=== PATIENT | male | born 1935 | race Caucasian/White ===

== ENCOUNTER 2017-08-22 11:55 | Observation (INO) | payer MEDICARE, OTHER ==
[2017-08-22 12:02] VITALS: BMI 34.0
--- NOTE | 2017-08-22 12:20 | PDOC ---
History of Present Illness - General History Source: Patient Exam Limitations: No Limitations - History of Present Illness Initial Comments: 08/22/17 13:23 81-year-old male sent in by Dr. Craig for evaluation of low glucose. Patient states went to Dr. Craig for follow-up and while having EKG and during the exam patient stated he was slightly lightheaded. Patient had EKG done that was negative and states they did then check his glucose which was low. Patient was offered ambulance but refused and stated he will go straight to [facility] ER across the street. Patient states unable to recall the exact number patient states has had some dizziness. After taking his diabetic medication which his primary care doctor is aware of. Patient states did not check sugar this morning and denies any chest pain, shortness breath, visual changes, headache, or nausea. Timing/Duration: unsure <Willow Lujan - Last Filed: 08/22/17 18:48> <Harvey Adame - Last Filed: 08/25/17 02:53> - General Chief Complaint: Revisit, Lab Variance Stated Complaint: LAB VARIANCE (PCP SENT) Time Seen by Provider: 08/22/17 12:15 Past History - Travel Traveled outside of the country in the last 30 days: No - Past Medical History COPD: No Diabetes: Yes HTN: Yes - Surgical History Abdominal Surgery: Yes (HERNIA REPAIR) Cardiac Surgery: Yes (VALVE REPLACED/PACEMAKER) - Suicide/Smoking/Psychosocial Hx Smoking Status: No Smoking History: Never smoked Have you smoked in the past 12 months: No Number of Cigarettes Smoked Daily: 0 Information on smoking cessation initiated: No Hx Alcohol Use: No Drug/Substance Use Hx: No Substance Use Type: None Hx Substance Use Treatment: No Patient Lives Alone: Yes Lives with/in: lives alone <Willow Lujan - Last Filed: 08/22/17 18:48> <Harvey Adame - Last Filed: 08/25/17 02:53> - Past Medical History Allergies/Adverse Reactions: Allergies Allergy/AdvReac Type Severity Reaction Status Date / Time No Known Drug Allergies Allergy Verified 08/22/17 11:59 Home Medications: Ambulatory Orders Tamsulosin HCl 0.4 mg PO 1800 12/06/12 Amlodipine Besylate [Norvasc -] 10 mg PO DAILY 08/22/17 Aspirin 81 mg PO DAILY 08/22/17 Metformin HCl [Metformin HCl ER] 1,000 mg PO BID 08/22/17 Apixaban [Eliquis -] 2.5 mg PO BID #60 tablet 08/23/17 Insulin Glargine,Hum.rec.anlog [Lantus Solostar PEN -] 15 units SQ HS 08/23/17 Lisinopril [Prinivil -] 40 mg PO DAILY 08/23/17 Prednisolone 1% Ophthalmic [Pred Forte 1% -] 1 drop OS BID 08/23/17 Sitagliptin Phosphate [Januvia] 100 mg PO DAILY 08/23/17 Tadalafil [Cialis] 20 mg PO ASDIR 08/23/17 Timolol 0.5% [Timoptic 0.5%] 1 drop OS BID 08/23/17 Review of Systems - Review of Systems Able to Perform ROS?: Yes Constitutional: No: Symptoms Reported HEENTM: No: Symptoms Reported Respiratory: No: Symptoms reported Cardiac (ROS): Yes: Lightheadedness (episodic) ABD/GI: No: Constipated, Diarrhea, Abdominal cramping : No: Symptoms Reported Musculoskeletal: No: Symptoms Reported Integumentary: No: Symptoms Reported Neurological: No: Symptoms reported Endocrine: No: Symptoms Reported Hematologic/Lymphatic: No: Symptoms Reported <Willow Lujan - Last Filed: 08/22/17 18:48> *Physical Exam - Vital Signs Last Vital Signs Temp Pulse Resp BP Pulse Ox 98.0 F 74 18 135/71 100 08/22/17 12:00 08/22/17 12:00 08/22/17 12:00 08/22/17 12:00 08/22/17 12:00 - Physical Exam General Appearance: Yes: Nourished, Appropriately Dressed HEENT: positive: TMs Normal, Pharynx Normal. negative: Pale Conjunctivae Respiratory/Chest: positive: Lungs Clear, Normal Breath Sounds. negative: Respiratory Distress, Accessory Muscle Use Cardiovascular: positive: Regular Rhythm, Regular Rate. negative: Murmur Gastrointestinal/Abdominal: positive: Soft. negative: Tenderness Integumentary: positive: Normal Color, Warm, Moist Neurologic: positive: Normal Mood/Affect, Motor Strength 5/5 (ambulatory with cane) <Willow Lujan - Last Filed: 08/22/17 18:48> - Vital Signs Last Vital Signs Temp Pulse Resp BP Pulse Ox 98.0 F 74 18 135/71 100 08/22/17 12:00 08/22/17 12:00 08/22/17 12:00 08/22/17 12:00 08/22/17 12:00 <Harvey Adame - Last Filed: 08/25/17 02:53> Heart Score/ECG Review - ECG Intrepretation Rhythm: Regular Rhythm (ventricular paced at 76) <Willow Lujan - Last Filed: 08/22/17 18:48> - ECG Impressions Comment:: 08/22/17 13:06 EKG interpreted by myself Ventricular paced rhythm Rate of 85 Appropriate discordance <Harvey Adame - Last Filed: 08/25/17 02:53> ED Treatment Course - LABORATORY CBC & Chemistry Diagram: 08/22/17 12:48 08/22/17 12:48 <Willow Lujan - Last Filed: 08/22/17 18:48> - LABORATORY CBC & Chemistry Diagram: 08/22/17 12:48 08/23/17 05:39 <Harvey Adame - Last Filed: 08/25/17 02:53> Medical Decision Making - Medical Decision Making 08/22/17 13:32 Patient here for evaluation of low glucose as per patient. Patient states was at Dr. Craig for follow-up when he complaints of lightheadedness and was noted to have a low glucose which is unable to recall. Patient arrives here asymptomatic with no complaints including dizziness. Patient had EKG done that shows no acute findings. Patient ordered for labs, urine, cardiac monitoring. 08/22/17 17:44 Laboratory Tests 08/22/17 08/22/17 08/22/17 12:48 12:48 13:06 WBC 4.8 D Hgb 12.4 Hct 38.6 Plt Count 168 Neutrophils % 59.7 PT with INR INR Sodium 138 Potassium 4.7 Chloride 105 Carbon Dioxide 25 Anion Gap 8 BUN 11 D Creatinine 1.0 D Creat Clearance w eGFR > 60 Random Glucose 205 H Total Bilirubin 0.5 AST 37 D ALT 28 D Alkaline Phosphatase 80 Creatine Kinase 146 Troponin I 0.02 D Urine Glucose (UA) 3+ H Urine Ketones Negative Ur Leukocyte Esterase Negative Stool Occult Blood 08/22/17 08/22/17 17:10 17:19 WBC Hgb Hct Plt Count Neutrophils % PT with INR Pending INR Pending Sodium Potassium Chloride Carbon Dioxide Anion Gap BUN Creatinine Creat Clearance w eGFR Random Glucose Total Bilirubin AST ALT Alkaline Phosphatase Creatine Kinase Troponin I Urine Glucose (UA) Urine Ketones Ur Leukocyte Esterase Stool Occult Blood Negative Chest x-ray shows cart or megaly and possible mild congestion. Case discussed with Dr. Craig who states that Dr. Farias wants patient admitted since he is underline A. fib and currently on no anticoagulation therapy. Dr. Farias requesting admission to telemetry along with heparin administration. PT INR pending. Stool for occult blood negative. 08/22/17 17:49 Microblog sent to hospitalist. 08/22/17 18:48 Patient will be admitted to Dr. Monreal to telemetry observation <Willow Lujan - Last Filed: 08/22/17 18:48> - Medical Decision Making The patient was seen and evaluated in conjunction with ALICIA Lujan under my direct supervision, ancillary studies were reviewed. I agree with the plan as outlined by ALICIA Lujan. <Harvey Adame - Last Filed: 08/25/17 02:53> *DC/Admit/Observation/Transfer - Discharge Dispostion Admit: Yes <Willow Lujan - Last Filed: 08/22/17 18:48> <Harvey Adame - Last Filed: 08/25/17 02:53> Diagnosis at time of Disposition: A-fib, Inadequate anticoagulation, Lightheadedness - Discharge Dispostion Disposition: HOME Condition at time of disposition: Stable
[2017-08-22 13:06] LABS: BASO % 0.7 % (0-2.0); EOS % 3.2 % (0-4.5); HEMATOCRIT 38.6 % (35.4-49); HEMOGLOBIN 12.4 GM/dL (11.7-16.9); LYMPH % 26.5 % (8-40); MCH 26.4 pg (25.7-33.7); MCHC 32.2 g/dl (32.0-35.9); MEAN CELL VOLUME 82.1 fl (80-96); MEAN PLT VOLUME 9.6 fl (7.5-11.1); MONO % 9.9 % (3.8-10.2); NEUT % 59.7 % (42.8-82.8); PLATELET COUNT 168 K/MM3 (134-434); RBC 4.71 M/mm3 (4.00-5.60); RDW 15.1 % (11.9-15.9); WHITE BLOOD COUNT 4.8 K/mm3 (4.0-10.0)
[2017-08-22 13:11] LABS: URINE APPEARANCE CLEAR; URINE BILIRUBIN NEGATIVE (NEGATIVE); URINE BLOOD NEGATIVE (NEGATIVE); URINE COLOR STRAW; URINE GLUCOSE (UA) 3+ (NEGATIVE); URINE KETONE NEGATIVE (NEGATIVE); URINE LEUK ESTERASE NEGATIVE (NEGATIVE); URINE NITRITE NEGATIVE (NEGATIVE); URINE PROTEIN NEGATIVE (NEGATIVE); URINE UROBILINOGEN NEGATIVE mg/dL (0.2-1.0)
[2017-08-22 13:26] LABS: ALBUMIN 3.4 g/dl (3.4-5.0); ANION GAP 8 (8-16); BLOOD UREA NITROGEN 11 mg/dL (7-18); CALCIUM 9.3 mg/dL (8.5-10.1); CHLORIDE 105 mmol/L (98-107); CO2 25 mmol/L (21-32); GLUCOSE,RANDOM 205 mg/dL (74-106); SGPT/ALT 28 U/L (12-78); SODIUM 138 mmol/L (136-145)
[2017-08-22 13:30] LABS: ALK PHOS 80 U/L (45-117); BILIRUBIN,TOTAL 0.5 mg/dL (0.2-1.0); TOT PROT 7.4 g/dl (6.4-8.2)
[2017-08-22 13:33] LABS: POTASSIUM 4.7 mmol/L (3.5-5.1)
[2017-08-22 13:34] LABS: SGOT/AST 37 U/L (15-37)
--- NOTE | 2017-08-22 15:07 | EKG ---
Test Reason : Blood Pressure : / mmHG Vent. Rate : 085 BPM Atrial Rate : 138 BPM P-R Int : 000 ms QRS Dur : 200 ms QT Int : 432 ms P-R-T Axes : 000 -72 107 degrees QTc Int : 514 ms Ventricular-paced rhythm ABNORMAL ECG WHEN COMPARED WITH ECG OF 29-SEP-2015 23:50, VENT. RATE HAS INCREASED BY 9 BPM Confirmed by MD Ambriz Daniel ([id number]) on 08/22/2017 3:06:52 PM Referred By: Confirmed By:Grayson Ambriz MD
[2017-08-22] MEDS ORDERED: HEPARIN NA (PORCINE) 5,000 UNITS/ML 1ML VIAL IVPUSH ONE (17:48)
[2017-08-22] MEDS ORDERED: HEPARIN INFUSION - 25,000 UNITS/500 ML INFUS.BAG IVPB ONE (17:53)
[2017-08-22] MEDS ORDERED: HEPARIN NA (PORCINE) 5,000 UNITS/ML 1ML VIAL ONE (17:53)
[2017-08-22] MEDS ORDERED: HEPARIN SOD,PORK IN 0.45% NACL 25,000 UNITS/500 ML INFUS.BAG IVPB SCH (18:00)
[2017-08-22 18:14] LABS: INR 1.07 (0.82-1.09); PROTHROMBIN TIME (PATIENT) 12.1 SEC (9.98-11.88)
--- NOTE | 2017-08-22 19:07 | PN ---
Teaching Attending Note Name of Resident: Arabella Arguello ATTENDING PHYSICIAN STATEMENT I saw and evaluated the patient. I reviewed the resident's note and discussed the case with the resident. I agree with the resident's findings and plan as documented with exceptions mentioned below. SUBJECTIVE: 81 yom with PMHx of CAD s/p CABG, ?AVR with rupture 2006, s/pPPM, NIDDM, HTN, sent in from Dr. Craig's office for dizziness with suspected hypoglycemia. Patient was noted with BG 200s in the ED. however reported intermittent palpitations, Cardiology Dr. Farias was contacted and patient was suspected to have underlying atrial fibrillation, recommended heparin drip and inpatient monitoring. patient currently denies any palpitations, dizziness, dyspnea, PND, orthopnea, leg swelling or chest pain. 12 point ROS neg except above with no recent URI like illness, fevers, chills or new concerns. OBJECTIVE: Vital Signs Period Temp Pulse Resp BP Sys/Gauthier Pulse Ox Last 24 Hr 98.0 F 61-74 15-18 135-147/71-77 97-100 Intake & Output 08/19/17 08/20/17 08/21/17 08/22/17 23:59 23:59 23:59 23:59 Weight 180 lb GENERAL: Awake, alert, and fully oriented, in no acute distress. HEAD: Normal with no signs of trauma. EYES: Pupils equal, round and reactive to light, extraocular movements intact, sclera anicteric, conjunctiva clear. No lid lag. EARS, NOSE, THROAT: Ears normal, nares patent, oropharynx clear without exudates. Moist mucous membranes. NECK: Normal range of motion, supple without lymphadenopathy, JVD, or masses. limited exam given body habitus LUNGS: Breath sounds equal, clear to auscultation bilaterally. No wheezes, and no crackles. No accessory muscle use. HEART: Regular rate and rhythm, normal S1 and S2 without murmur, rub or gallop. ABDOMEN: Soft, nontender, not distended, normoactive bowel sounds, no guarding, no rebound, no masses. No hepatomegaly or splenomegaly appreciated. MUSCULOSKELETAL: Normal range of motion at all joints. No bony deformities or tenderness. No CVA tenderness. UPPER EXTREMITIES: 2+ pulses, warm, well-perfused. No cyanosis. No clubbing. No peripheral edema. LOWER EXTREMITIES: 2+ pulses, warm, well-perfused. No calf tenderness. No peripheral edema. NEUROLOGICAL: Cranial nerves II-XII intact. Normal speech. PSYCHIATRIC: Cooperative. Good eye contact. Appropriate mood and affect. SKIN: Warm, dry, normal turgor, no rashes or lesions noted, normal capillary refill. Home Medication List Medication Instructions Recorded Confirmed Type Glyburide/Metformin HCl 2 each PO BID 12/06/12 10/14/15 History [Glucovance 5-500 mg Tablet] Losartan/Hydrochlorothiazide 1 each PO DAILY 12/06/12 10/14/15 History [Losartan-Hctz 100-25 mg Tab] Silodosin [Rapaflo] 8 mg PO DAILY 12/06/12 10/14/15 History Tamsulosin HCl 0.4 mg PO DAILY 12/06/12 10/14/15 History Active Medications Generic Name Dose Route Start Last Admin Trade Name Freq PRN Reason Stop Dose Admin HEPARIN SOD,PORK IN 0.45% NACL 25,000 units in 500 mls @ 20 mls/hr 08/22/17 18 :00 Heparin-1/2ns 25,000 Units/500 IVPB TITR HARPER Protocol 1,000 UNITS/HR Insulin Aspart 0 vial 08/22/17 22:00 Novolog Vial Sliding Scale - SQ ACHS HARPER Protocol Laboratory Results - last 24 hr 08/22/17 08/22/17 08/22/17 12:48 12:48 13:06 WBC 4.8 D RBC 4.71 Hgb 12.4 Hct 38.6 MCV 82.1 MCH 26.4 MCHC 32.2 RDW 15.1 Plt Count 168 MPV 9.6 Neutrophils % 59.7 Lymphocytes % 26.5 Monocytes % 9.9 Eosinophils % 3.2 Basophils % 0.7 Sodium 138 Potassium 4.7 Chloride 105 Carbon Dioxide 25 Anion Gap 8 BUN 11 D Creatinine 1.0 D Creat Clearance w eGFR > 60 Random Glucose 205 H Calcium 9.3 Total Bilirubin 0.5 AST 37 D ALT 28 D Alkaline Phosphatase 80 Creatine Kinase 146 Troponin I 0.02 D Total Protein 7.4 Albumin 3.4 D Urine Color Straw Urine Appearance Clear Urine pH 7.0 Ur Specific [place] 1.011 Urine Protein Negative Urine Glucose (UA) 3+ H Urine Ketones Negative Urine Blood Negative Urine Nitrite Negative Urine Bilirubin Negative Urine Urobilinogen Negative Ur Leukocyte Esterase Negative Stool Occult Blood 08/22/17 17:10 WBC RBC Hgb Hct MCV MCH MCHC RDW Plt Count MPV Neutrophils % Lymphocytes % Monocytes % Eosinophils % Basophils % Sodium Potassium Chloride Carbon Dioxide Anion Gap BUN Creatinine Creat Clearance w eGFR Random Glucose Calcium Total Bilirubin AST ALT Alkaline Phosphatase Creatine Kinase Troponin I Total Protein Albumin Urine Color Urine Appearance Urine pH Ur Specific [place] Urine Protein Urine Glucose (UA) Urine Ketones Urine Blood Urine Nitrite Urine Bilirubin Urine Urobilinogen Ur Leukocyte Esterase Stool Occult Blood Negative EKG v-paced ASSESSMENT AND PLAN: 81 yom with CAD s/p CABG/?AVR, s/p PPM, HTN, NIDDM admitted with dizziness/ intermittent palpitation. -Dizziness/Intermittent palpitation, r/o new onset atrial fibrillation -CAD s/p ?CABG/AVR -s/p PPM -HTN -NIDDM Plan: Telemetry, PPM interrogation. heparin drip per Dr. Farias. Check TSH, 2D echo. ISS, diabetic diet. Hold oral hypoglycemics for now. Resume home anti-hypertensives. DVTPPX as above. Plan discussed with patient in detail, all questions answered. Admit to obs, total admit time spent 50 min.
--- NOTE | 2017-08-22 19:12 | HP ---
CHIEF COMPLAINT: Dizziness and Lightheadedness PCP: Dr. Akilah Mays HISTORY OF PRESENT ILLNESS: Patient is an 81 year old male with a PMHx of HTN, NIDDMII, CAD s/p CABG (12 years ago?), s/p PPM, BPH, who was sent over by his maintenance repairman, Dr. Farias, from the office due to complaints of dizziness while getting an EKG done. Patient reports he's been having intermittent dizziness, lightheadedness, and palpitations for years now that initially started 12 years ago when he had an AK. Patient states when he was in the office today, he was laying down getting an EKG done and he started feeling dizzy. Patient was then advised to be sent over to the hospital for evaluation. According to patient, he was told that he had low sugar readings at the office but does not remember the number. Patient reports he took his medications this morning and did have breakfast. Patient otherwise denies fever, chills, nausea, vomiting, abdominal pain, chest pain, shortness of breath, headaches, visual changes, hematuria, melena, hematochezia, hematemesis. ER course was notable for: (1) Chest X-ray showed mild vascular congestion (2) EKG revealing ventricular paced rhythm (3) Heparin drip started, as per cardiology recommendations Recent Travel: Denies PAST MEDICAL HISTORY: HTN, NIDDMII, CAD s/p CABG (12 years ago?), s/p PPM, BPH, PAST SURGICAL HISTORY: abdominal hernia, CABG, PPM Social History: Smoking: Denies Alcohol: Denies Drugs: Denies Family History: Father of AK at age 77 Allergies No Known Drug Allergies Allergy (Verified 08/22/17 11:59) HOME MEDICATIONS: Home Medications Medication Instructions Recorded Glyburide/Metformin HCl 2 each PO BID 12/06/12 [Glucovance 5-500 mg Tablet] Losartan/Hydrochlorothiazide 1 each PO DAILY 12/06/12 [Losartan-Hctz 100-25 mg Tab] Silodosin [Rapaflo] 8 mg PO DAILY 12/06/12 Tamsulosin HCl 0.4 mg PO DAILY 12/06/12 Oxycodone HCl/Acetaminophen 1 tab PO Q6H PRN #60 tablet MDD 4 10/14/15 [Percocet 5-325 mg Tablet] REVIEW OF SYSTEMS CONSTITUTIONAL: Absent: fever, chills, diaphoresis, generalized weakness, malaise, loss of appetite, weight change HEENT: Absent: rhinorrhea, nasal congestion, throat pain, throat swelling, difficulty swallowing, mouth swelling, ear pain, eye pain, visual changes CARDIOVASCULAR: palpitations, lightheadedness Absent: chest pain, syncope, irregular heart rate, peripheral edema RESPIRATORY: Absent: cough, shortness of breath, dyspnea with exertion, orthopnea, wheezing, stridor, hemoptysis GASTROINTESTINAL: Absent: abdominal pain, abdominal distension, nausea, vomiting, diarrhea, constipation, melena, hematochezia GENITOURINARY: Absent: dysuria, frequency, urgency, hesitancy, hematuria, flank pain, genital pain MUSCULOSKELETAL: Absent: myalgia, arthralgia, joint swelling, back pain, neck pain SKIN: Absent: rash, itching, pallor HEMATOLOGIC/IMMUNOLOGIC: Absent: easy bleeding, easy bruising, lymphadenopathy, frequent infections ENDOCRINE: Absent: unexplained weight gain, unexplained weight loss, heat intolerance, cold intolerance NEUROLOGIC: Absent: headache, focal weakness or paresthesias, dizziness, unsteady gait, seizure, mental status changes, bladder or bowel incontinence PSYCHIATRIC: Absent: anxiety, depression, suicidal or homicidal ideation, hallucinations. PHYSICAL EXAMINATION Vital Signs - 24 hr 08/22/17 08/22/17 12:00 13:06 Temperature 98.0 F Pulse Rate 74 Pulse Rate [ 61 Left] Respiratory 18 15 Rate Blood Pressure 135/71 Blood Pressure 147/77 [Right] O2 Sat by Pulse 100 97 Oximetry (%) GENERAL: Awake, alert, and fully oriented, in no acute distress. HEAD: Normal with no signs of trauma. EYES: Pupils equal, round and reactive to light, extraocular movements intact, sclera anicteric, conjunctiva clear. EARS, NOSE, THROAT: Oropharynx clear without exudates. Moist mucous membranes. NECK: Normal range of motion, supple without lymphadenopathy, JVD, or masses. LUNGS: Breath sounds equal, clear to auscultation bilaterally. No wheezes, and no crackles. No accessory muscle use. HEART: Regular rate and rhythm, normal S1 and S2 without murmur, rub or gallop. ABDOMEN: Soft, nontender, not distended, normoactive bowel sounds, no guarding, no rebound, no masses. MUSCULOSKELETAL: Normal range of motion at all joints. No bony deformities or tenderness. No CVA tenderness. UPPER EXTREMITIES: 2+ pulses, warm, well-perfused. No cyanosis. No clubbing. No peripheral edema. LOWER EXTREMITIES: 2+ pulses, warm, well-perfused. No calf tenderness. No peripheral edema. NEUROLOGICAL: Cranial nerves II-XII intact. Normal speech. Sensory intact throughout with 5/5 motor strength bilaterally PSYCHIATRIC: Cooperative. Good eye contact. Appropriate mood and affect. SKIN: Warm, dry, normal turgor, no rashes or lesions noted, normal capillary refill. Laboratory Results - last 24 hr 08/22/17 08/22/17 08/22/17 12:48 12:48 13:06 WBC 4.8 D RBC 4.71 Hgb 12.4 Hct 38.6 MCV 82.1 MCH 26.4 MCHC 32.2 RDW 15.1 Plt Count 168 MPV 9.6 Neutrophils % 59.7 Lymphocytes % 26.5 Monocytes % 9.9 Eosinophils % 3.2 Basophils % 0.7 Sodium 138 Potassium 4.7 Chloride 105 Carbon Dioxide 25 Anion Gap 8 BUN 11 D Creatinine 1.0 D Creat Clearance w eGFR > 60 Random Glucose 205 H Calcium 9.3 Total Bilirubin 0.5 AST 37 D ALT 28 D Alkaline Phosphatase 80 Creatine Kinase 146 Troponin I 0.02 D Total Protein 7.4 Albumin 3.4 D Urine Color Straw Urine Appearance Clear Urine pH 7.0 Ur Specific [place] 1.011 Urine Protein Negative Urine Glucose (UA) 3+ H Urine Ketones Negative Urine Blood Negative Urine Nitrite Negative Urine Bilirubin Negative Urine Urobilinogen Negative Ur Leukocyte Esterase Negative Stool Occult Blood 08/22/17 17:10 WBC RBC Hgb Hct MCV MCH MCHC RDW Plt Count MPV Neutrophils % Lymphocytes % Monocytes % Eosinophils % Basophils % Sodium Potassium Chloride Carbon Dioxide Anion Gap BUN Creatinine Creat Clearance w eGFR Random Glucose Calcium Total Bilirubin AST ALT Alkaline Phosphatase Creatine Kinase Troponin I Total Protein Albumin Urine Color Urine Appearance Urine pH Ur Specific [place] Urine Protein Urine Glucose (UA) Urine Ketones Urine Blood Urine Nitrite Urine Bilirubin Urine Urobilinogen Ur Leukocyte Esterase Stool Occult Blood Negative IMAGES: Chest X-Ray (08/22/17): Cardiomegaly. Mild vascular congestion ASSESSMENT/PLAN: Patient is an 81 year old male who was sent over by his maintenance repairman due to lightheadedness and palpitation with high suspicion of Atrial Fibrillation. Patient admitted for telemetry for further monitoring and management. Lightheadedness and Palpitations -Reefer Engineer has high suspicion for Atrial fibrillation that is not shown on EKG due to ventricular paced rhythms. Patient is noncompliant with medications according to PCP. -Chadsvasc score of 5 with high risk of stroke and possible underlying Paroxysmal Atrial Fibrillation -Patient on no AC and Heparin drip protocol started, as per cardiology. Will bridge and consider NOAC's upon discharge -Monitor PTT -ECHO ordered for the morning -TSH ordered to rule out any endocrinology etiology -Will interrogate pacemaker to rule out any atrial fibrillation rhythms -Continue to monitor on telemetry CAD s/p CABG? -Continue Aspirin 81mg daily -Lipid panel ordered S/P Pacemaker -Patient has [employer] pacemaker. -Creative Developer will come in the morning to interrogate pacemaker HTN -Controlled -Continue home medication Amlodipine 10mg daily -Continue to monitor BP NIDDMII -Hold oral agents -ISS -BGM -A1C ordered BPH -Continue Tamsulosin 0.4mg daily F/E/N -On no IV fluids. Tolerates PO -Electrolytes wnl -Diabetic and sodium controlled diet Prophylaxis -Moderate risk. Heparin drip for DVT -No GI required Disposition -Full code -Will likely remain overnight and will need ECHO done before discharge as well as pacemaker interrogation. -Will need to call pharmacy when re-opens tomorrow to confirm medications. Case discussed with attending, Dr. Monreal. Arabella Arguello [id number] Visit type - Emergency Visit Emergency Visit: Yes Care time: The patient presented to the Emergency Department on the above date and was hospitalized for further evaluation of their emergent condition. - New Patient This patient is new to me today: Yes Date on this admission: 08/22/17 - Critical Care Critical Care patient: No Hospitalist Screening - Colonoscopy Questionnaire Colonoscopy Questionnaire: Colonoscopy Questionnaire - Patient: 50 - 75 years old and never had a screening colonoscopy: Unknown History of colon or rectal polyps, or CA: No History of IBD, Crohn's disease or UC: No History of abdominal radiation therapy as a child: No - Relative: 1 with colon or rectal CA, or polyps at age 60 or younger: Unknown Colon or rectal CA diagnosed at age 45 or younger: Unknown Multiple relatives with colon or rectal CA: Unknown - Outcome: Screening Result: Negative Screen
[2017-08-22] MEDS ORDERED: INSULIN SLIDING SCALE (NOVOLOG) 1 VIAL SQ SCH (22:00)
[2017-08-22] MEDS: INSULIN SLIDING SCALE (NOVOLOG) 1 VIAL SQ SCH (23:30)
[2017-08-23 02:09] LABS: INR 1.14 (0.82-1.09); PROTHROMBIN TIME (PATIENT) 12.9 SEC (9.98-11.88)
[2017-08-23 06:30] LABS: ANION GAP 5 (8-16); BLOOD UREA NITROGEN 14 mg/dL (7-18); CALCIUM 8.9 mg/dL (8.5-10.1); CHLORIDE 107 mmol/L (98-107); CHOLESTEROL 83 mg/dL (50-200); CO2 27 mmol/L (21-32); CREATININE 0.9 mg/dL (0.7-1.3); GLUCOSE,RANDOM 120 mg/dL (74-106); HDL CHOLESTEROL 40 mg/dL (40-60); LDL CHOLESTEROL (ONLY SJRH) 42 mg/dL (5-100); POTASSIUM 3.9 mmol/L (3.5-5.1); SODIUM 139 mmol/L (136-145); TRIGLYCERIDES 38 mg/dL (35-160)
--- NOTE | 2017-08-23 07:22 | PN ---
Physical Exam: SUBJECTIVE: Patient seen and examined OBJECTIVE: Vital Signs Period Temp Pulse Resp BP Sys/Gauthier Pulse Ox Last 24 Hr 97.4 F-98.1 F 60-74 15-18 135-147/71-77 97-100 GENERAL: The patient is awake, alert, and fully oriented, in no acute distress. HEAD: Normal with no signs of trauma. EYES: PERRL, extraocular movements intact, sclera anicteric, conjunctiva clear. No ptosis. ENT: Ears normal, nares patent, oropharynx clear without exudates, moist mucous membranes. NECK: Trachea midline, full range of motion, supple. LUNGS: Breath sounds equal, clear to auscultation bilaterally, no wheezes, no crackles, no accessory muscle use. HEART: Regular rate and rhythm, S1, S2 without murmur, rub or gallop. ABDOMEN: Soft, nontender, nondistended, normoactive bowel sounds, no guarding, no rebound, no hepatosplenomegaly, no masses. EXTREMITIES: 2+ pulses, warm, well-perfused, no edema. NEUROLOGICAL: Cranial nerves II through XII grossly intact. Normal speech, gait not observed. PSYCH: Normal mood, normal affect. SKIN: Warm, dry, normal turgor, no rashes or lesions noted Laboratory Results - last 24 hr 08/22/17 08/22/17 08/22/17 12:48 12:48 13:06 WBC 4.8 D RBC 4.71 Hgb 12.4 Hct 38.6 MCV 82.1 MCH 26.4 MCHC 32.2 RDW 15.1 Plt Count 168 MPV 9.6 Neutrophils % 59.7 Lymphocytes % 26.5 Monocytes % 9.9 Eosinophils % 3.2 Basophils % 0.7 PT with INR INR PTT (Actin FS) Sodium 138 Potassium 4.7 Chloride 105 Carbon Dioxide 25 Anion Gap 8 BUN 11 D Creatinine 1.0 D Creat Clearance w eGFR > 60 POC Glucometer Random Glucose 205 H Calcium 9.3 Total Bilirubin 0.5 AST 37 D ALT 28 D Alkaline Phosphatase 80 Creatine Kinase 146 Troponin I 0.02 D Total Protein 7.4 Albumin 3.4 D Triglycerides Cholesterol Total LDL Cholesterol HDL Cholesterol Urine Color Straw Urine Appearance Clear Urine pH 7.0 Ur Specific [place] 1.011 Urine Protein Negative Urine Glucose (UA) 3+ H Urine Ketones Negative Urine Blood Negative Urine Nitrite Negative Urine Bilirubin Negative Urine Urobilinogen Negative Ur Leukocyte Esterase Negative Stool Occult Blood 08/22/17 08/22/17 08/22/17 17:10 17:19 23:27 WBC RBC Hgb Hct MCV MCH MCHC RDW Plt Count MPV Neutrophils % Lymphocytes % Monocytes % Eosinophils % Basophils % PT with INR 12.10 H INR 1.07 PTT (Actin FS) Sodium Potassium Chloride Carbon Dioxide Anion Gap BUN Creatinine Creat Clearance w eGFR POC Glucometer [phone] Random Glucose Calcium Total Bilirubin AST ALT Alkaline Phosphatase Creatine Kinase Troponin I Total Protein Albumin Triglycerides Cholesterol Total LDL Cholesterol HDL Cholesterol Urine Color Urine Appearance Urine pH Ur Specific [place] Urine Protein Urine Glucose (UA) Urine Ketones Urine Blood Urine Nitrite Urine Bilirubin Urine Urobilinogen Ur Leukocyte Esterase Stool Occult Blood Negative 08/23/17 08/23/17 08/23/17 01:48 01:48 05:39 WBC RBC Hgb Hct MCV MCH MCHC RDW Plt Count MPV Neutrophils % Lymphocytes % Monocytes % Eosinophils % Basophils % PT with INR 12.90 H INR 1.14 PTT (Actin FS) 83.2 H D Sodium 139 Potassium 3.9 Chloride 107 Carbon Dioxide 27 Anion Gap 5 L BUN 14 D Creatinine 0.9 Creat Clearance w eGFR POC Glucometer Random Glucose 120 H D Calcium 8.9 Total Bilirubin AST ALT Alkaline Phosphatase Creatine Kinase Troponin I Total Protein Albumin Triglycerides 38 Cholesterol 83 Total LDL Cholesterol 42 HDL Cholesterol 40 Urine Color Urine Appearance Urine pH Ur Specific [place] Urine Protein Urine Glucose (UA) Urine Ketones Urine Blood Urine Nitrite Urine Bilirubin Urine Urobilinogen Ur Leukocyte Esterase Stool Occult Blood Active Medications Generic Name Dose Route Start Last Admin Trade Name Freq PRN Reason Stop Dose Admin Amlodipine Besylate 10 mg 08/23/17 10:00 Norvasc - PO DAILY [facility] Aspirin 81 mg 08/23/17 10:00 Asa - PO DAILY [facility] HEPARIN SOD,PORK IN 0.45% NACL 25,000 units in 500 mls @ 20 mls/hr 08/22/17 18 :00 08/22/17 19:16 Heparin-1/2ns 25,000 Units/500 IVPB 1,000 units/hr TITR [facility] 20 mls/hr Protocol Administration 1,000 UNITS/HR Insulin Aspart 1 vial 08/22/17 22:00 08/22/17 23:30 Novolog Vial Sliding Scale - SQ 4 units ACHS [facility] Administration Protocol Tamsulosin HCl 0.4 mg 08/23/17 08:30 Flomax - PO 0830 [facility] ASSESSMENT/PLAN: Patient is an 81 year old male who was sent over by his geology faculty member due to lightheadedness and palpitation with high suspicion of Atrial Fibrillation. Patient admitted for telemetry for further monitoring and management.
[2017-08-23] MEDS: INSULIN SLIDING SCALE (NOVOLOG) 1 VIAL SQ SCH ×2 (07:42→11:44)
[2017-08-23] MEDS ORDERED: TAMSULOSIN HCL 0.4 MG CAP.ER.24H (FP) PO SCH (08:30)
[2017-08-23] MEDS ORDERED: ASPIRIN 81 MG CHEWABLE TABLETS ONE (09:35)
[2017-08-23] MEDS ORDERED: TAMSULOSIN HCL 0.4 MG CAP.ER.24H (FP) ONE (09:35)
[2017-08-23] MEDS ORDERED: amLODIPine BESYLATE 10 MG TABLET (FP) PO SCH (10:00)
[2017-08-23] MEDS ORDERED: ASPIRIN 81 MG CHEWABLE TABLETS PO SCH (10:00)
[2017-08-23] MEDS ORDERED: amLODIPine BESYLATE 5 MG TABLET (FP) ONE (10:30)
[2017-08-23 10:39] VITALS: TEMP 98
--- NOTE | 2017-08-23 11:27 | CON.CARD ---
Consult - History of Present Illness History of Present Illness: Patient is an 81 year old male with a PMHx of HTN, NIDDMII, AVR s/p PPM, BPH, who was sent over by his aviation safety equipment technician, Dr. Farias, from the office due to complaints of dizziness while getting an EKG done. Patient reports he's been having intermittent dizziness, lightheadedness, and palpitations for years now that initially started 12 years ago when he had an NM. Patient states when he was in the office today, he was laying down getting an EKG done and he started feeling dizzy. Patient was then advised to be sent over to the hospital for evaluation. According to patient, he was told that he had low sugar readings at the office but does not remember the number. Patient reports he took his medications this morning and did have breakfast. Patient otherwise denies fever , chills, nausea, vomiting, abdominal pain, chest pain, shortness of breath, headaches, visual changes, hematuria, melena, hematochezia, hematemesis. AVR 23mm magna bioprostetic aortic valve Luke Bal [facility] AVR for IE/abscess, complicated by prosthetic AV IE reop done 2 months later Luke Salinas [facility] 2006 Homograft aortic root replacement s/p PPM [employer] DDD AF not complied with AC DM HTN Negative MIBI stress test December 2012 , September 2015 severe mitral regurgitation May 2017 - Alcohol/Substance Use Hx Alcohol Use: No - Smoking History Smoking history: Never smoked Have you smoked in the past 12 months: No Aproximately how many cigarettes per day: 0 Home Medications - Allergies Allergies/Adverse Reactions: Allergies Allergy/AdvReac Type Severity Reaction Status Date / Time No Known Drug Allergies Allergy Verified 08/22/17 11:59 - Home Medications Home Medications: Ambulatory Orders Tamsulosin HCl 0.4 mg PO 1800 12/06/12 Amlodipine Besylate [Norvasc -] 10 mg PO DAILY 08/22/17 Aspirin 81 mg PO DAILY 08/22/17 Metformin HCl [Metformin HCl ER] 1,000 mg PO BID 08/22/17 Insulin Glargine,Hum.rec.anlog [Lantus Solostar PEN (NF)] 15 units SQ HS Lisinopril [Prinivil -] 40 mg PO DAILY 08/23/17 Prednisolone 1% Ophthalmic [Pred Forte 1% -] 1 drop OS BID 08/23/17 Sitagliptin Phosphate [Januvia] 100 mg PO DAILY 08/23/17 Tadalafil [Cialis] 20 mg PO ASDIR 08/23/17 Timolol 0.5% [Timoptic 0.5%] 1 drop OS BID 08/23/17 Review of Systems - Review of Systems Constitutional: reports: No Symptoms Eyes: reports: No Symptoms HENT: reports: No Symptoms Neck: reports: No Symptoms Cardiovascular: reports: No Symptoms Gastrointestinal: reports: No Symptoms Genitourinary: reports: No Symptoms Breasts: reports: No Symptoms Reported Musculoskeletal: reports: No Symptoms Integumentary: reports: No Symptoms Neurological: reports: Dizziness Endocrine: reports: No Symptoms Hematology/Lymphatic: reports: No Symptoms Psychiatric: reports: No Symptoms Vital Signs: Vital Signs Temperature 98.0 F 08/23/17 10:31 Pulse Rate 74 08/23/17 10:31 Respiratory Rate 18 08/23/17 10:31 Blood Pressure 145/85 08/23/17 10:31 O2 Sat by Pulse Oximetry (%) 98 08/23/17 10:31 Constitutional: Yes: Well Nourished, No Distress, Calm Eyes: Yes: WNL, Conjunctiva Clear, EOM Intact HENT: Yes: WNL, Atraumatic, Normocephalic Neck: Yes: WNL, Supple, Trachea Midline Respiratory: Yes: WNL, Regular, CTA Bilaterally Gastrointestinal: Yes: WNL, Normal Bowel Sounds Renal/: Yes: WNL Cardiovascular: Yes: WNL, Regular Rate and Rhythm Musculoskeletal: Yes: WNL Extremities: Yes: WNL Integumentary: Yes: WNL Neurological: Yes: WNL, Alert, Oriented ...Motor Strength: WNL Psychiatric: Yes: WNL, Alert, Oriented - Other Data Labs, Other Data: CBC, BMP 08/22/17 12:48 08/23/17 05:39 INR, PTT INR 1.14 (0.82-1.09) 08/23/17 01:48 Troponin, BNP 08/22/17 12:48 Troponin I 0.02 D Troponin, BNP 08/22/17 12:48 Troponin I 0.02 D Laboratory Tests 08/22/17 08/22/17 08/22/17 12:48 12:48 13:06 WBC 4.8 D RBC 4.71 Hgb 12.4 Hct 38.6 MCV 82.1 MCH 26.4 MCHC 32.2 RDW 15.1 Plt Count 168 MPV 9.6 Neutrophils % 59.7 Lymphocytes % 26.5 Monocytes % 9.9 Eosinophils % 3.2 Basophils % 0.7 PT with INR INR PTT (Actin FS) Sodium 138 Potassium 4.7 Chloride 105 Carbon Dioxide 25 Anion Gap 8 BUN 11 D Creatinine 1.0 D Creat Clearance w eGFR > 60 POC Glucometer Random Glucose 205 H Hemoglobin A1c % Calcium 9.3 Total Bilirubin 0.5 AST 37 D ALT 28 D Alkaline Phosphatase 80 Creatine Kinase 146 Troponin I 0.02 D Total Protein 7.4 Albumin 3.4 D Triglycerides Cholesterol Total LDL Cholesterol HDL Cholesterol TSH Urine Color Straw Urine Appearance Clear Urine pH 7.0 Ur Specific [place] 1.011 Urine Protein Negative Urine Glucose (UA) 3+ H Urine Ketones Negative Urine Blood Negative Urine Nitrite Negative Urine Bilirubin Negative Urine Urobilinogen Negative Ur Leukocyte Esterase Negative Stool Occult Blood 08/22/17 08/22/17 08/22/17 17:10 17:19 23:27 WBC RBC Hgb Hct MCV MCH MCHC RDW Plt Count MPV Neutrophils % Lymphocytes % Monocytes % Eosinophils % Basophils % PT with INR 12.10 H INR 1.07 PTT (Actin FS) Sodium Potassium Chloride Carbon Dioxide Anion Gap BUN Creatinine Creat Clearance w eGFR POC Glucometer [phone] Random Glucose Hemoglobin A1c % Calcium Total Bilirubin AST ALT Alkaline Phosphatase Creatine Kinase Troponin I Total Protein Albumin Triglycerides Cholesterol Total LDL Cholesterol HDL Cholesterol TSH Urine Color Urine Appearance Urine pH Ur Specific [place] Urine Protein Urine Glucose (UA) Urine Ketones Urine Blood Urine Nitrite Urine Bilirubin Urine Urobilinogen Ur Leukocyte Esterase Stool Occult Blood Negative 08/23/17 08/23/17 08/23/17 01:48 01:48 05:39 WBC RBC Hgb Hct MCV MCH MCHC RDW Plt Count MPV Neutrophils % Lymphocytes % Monocytes % Eosinophils % Basophils % PT with INR 12.90 H INR 1.14 PTT (Actin FS) 83.2 H D Sodium 139 Potassium 3.9 Chloride 107 Carbon Dioxide 27 Anion Gap 5 L BUN 14 D Creatinine 0.9 Creat Clearance w eGFR POC Glucometer Random Glucose 120 H D Hemoglobin A1c % Calcium 8.9 Total Bilirubin AST ALT Alkaline Phosphatase Creatine Kinase Troponin I Total Protein Albumin Triglycerides 38 Cholesterol 83 Total LDL Cholesterol 42 HDL Cholesterol 40 TSH Urine Color Urine Appearance Urine pH Ur Specific [place] Urine Protein Urine Glucose (UA) Urine Ketones Urine Blood Urine Nitrite Urine Bilirubin Urine Urobilinogen Ur Leukocyte Esterase Stool Occult Blood 08/23/17 08/23/17 08/23/17 05:39 05:39 07:19 WBC RBC Hgb Hct MCV MCH MCHC RDW Plt Count MPV Neutrophils % Lymphocytes % Monocytes % Eosinophils % Basophils % PT with INR INR PTT (Actin FS) Sodium Potassium Chloride Carbon Dioxide Anion Gap BUN Creatinine Creat Clearance w eGFR POC Glucometer [phone] Random Glucose Hemoglobin A1c % 9.1 H Calcium Total Bilirubin AST ALT Alkaline Phosphatase Creatine Kinase Troponin I Total Protein Albumin Triglycerides Cholesterol Total LDL Cholesterol HDL Cholesterol TSH Cancelled Urine Color Urine Appearance Urine pH Ur Specific [place] Urine Protein Urine Glucose (UA) Urine Ketones Urine Blood Urine Nitrite Urine Bilirubin Urine Urobilinogen Ur Leukocyte Esterase Stool Occult Blood 08/23/17 07:20 WBC RBC Hgb Hct MCV MCH MCHC RDW Plt Count MPV Neutrophils % Lymphocytes % Monocytes % Eosinophils % Basophils % PT with INR INR PTT (Actin FS) 60.9 H Sodium Potassium Chloride Carbon Dioxide Anion Gap BUN Creatinine Creat Clearance w eGFR POC Glucometer Random Glucose Hemoglobin A1c % Calcium Total Bilirubin AST ALT Alkaline Phosphatase Creatine Kinase Troponin I Total Protein Albumin Triglycerides Cholesterol Total LDL Cholesterol HDL Cholesterol TSH Urine Color Urine Appearance Urine pH Ur Specific [place] Urine Protein Urine Glucose (UA) Urine Ketones Urine Blood Urine Nitrite Urine Bilirubin Urine Urobilinogen Ur Leukocyte Esterase Stool Occult Blood Imaging - Results Chest X-ray: Image Reviewed (cm chf) EKG: Image Reviewed (v paced underlying AF/A flutter) Problem List - Problems (1) BPH (benign prostatic hyperplasia) Code(s): N40.0 - BENIGN PROSTATIC HYPERPLASIA WITHOUT LOWER URINRY TRACT SYMP (2) DVT prophylaxis Code(s): VHK1559 - (3) Diabetes Code(s): E11.9 - TYPE 2 DIABETES MELLITUS WITHOUT COMPLICATIONS (4) Fracture of multiple toes Code(s): S92.919A - UNSP FRACTURE OF UNSP TOE(S), INIT FOR CLOS FX (5) Hyperlipidemia Code(s): E78.5 - HYPERLIPIDEMIA, UNSPECIFIED (6) Hypertension Code(s): I10 - ESSENTIAL (PRIMARY) HYPERTENSION Assessment/Plan af /a flutter noncompliance poorly controlled dm chf severe MR s/p AVR/ reop htn hlp s/p PPM (interrogated yesterday) Plan start NOAC d/c heparine adjust dm meds needs f/u with PMD, family input re complience risks of CVA d/w patient
[2017-08-23] MEDS ORDERED: INSULIN (NOVOLOG) ASPART 100 UNITS/ML 10ML VIAL ONE (11:47)
[2017-08-23 13:08] LABS: N-TERMINAL BNP 646.07 pg/ml (5-450)
--- NOTE | 2017-08-23 15:02 | PN ---
Teaching Attending Note Name of Resident: Ivan Arguello ATTENDING PHYSICIAN STATEMENT TIme of evaluation: 9:20 AM I saw and evaluated the patient. I reviewed the resident's note and discussed the case with the resident. I agree with the resident's findings and plan as documented. SUBJECTIVE: Patient seen and examined. no complaints, uneventful overnight. OBJECTIVE: Vital Signs Period Temp Pulse Resp BP Sys/Gauthier Pulse Ox Last 24 Hr 97.4 F-98.1 F 60-76 18-18 136-146/71-89 95-98 Intake & Output 08/20/17 08/21/17 08/22/17 08/23/17 23:59 23:59 23:59 23:59 Weight 180 lb 180 lb General: sitting in bed no acute distress Chest: CTAB, no rales or wheezing Home Medication List Medication Instructions Recorded Confirmed Type Tamsulosin HCl 0.4 mg PO 1800 12/06/12 08/23/17 History Amlodipine Besylate [Norvasc -] 10 mg PO DAILY 08/22/17 08/23/17 History Aspirin 81 mg PO DAILY 08/22/17 08/23/17 History Metformin HCl [Metformin HCl ER] 1,000 mg PO BID 08/22/17 08/23/17 History Insulin Glargine,Hum.rec.anlog 15 units SQ HS 08/23/17 08/23/17 History [Lantus Solostar PEN (NF)] Lisinopril [Prinivil -] 40 mg PO DAILY 08/23/17 08/23/17 History Prednisolone 1% Ophthalmic [Pred 1 drop OS BID 08/23/17 08/23/17 History Forte 1% -] Sitagliptin Phosphate [Januvia] 100 mg PO DAILY 08/23/17 08/23/17 History Tadalafil [Cialis] 20 mg PO ASDIR 08/23/17 08/23/17 History Timolol 0.5% [Timoptic 0.5%] 1 drop OS BID 08/23/17 08/23/17 History Active Medications Generic Name Dose Route Start Last Admin Trade Name Freq PRN Reason Stop Dose Admin Amlodipine Besylate 10 mg 08/23/17 10:00 08/23/17 10:38 Norvasc - PO 10 mg DAILY [facility] Administration Aspirin 81 mg 08/23/17 10:08/23/17 09:36 Asa - PO 81 mg DAILY [facility] Administration HEPARIN SOD,[place] 0.45% NACL 25,000 units in 500 mls @ 20 mls/hr 08/22/17 18 :00 08/22/17 19:16 Heparin-1/2ns 25,000 Units/500 IVPB 1,000 units/hr TITR [facility] 20 mls/hr Protocol Administration 1,000 UNITS/HR Insulin Aspart 1 vial 08/22/17 22:00 08/23/17 11:44 Novolog Vial Sliding Scale - SQ 6 units ACHS [facility] Administration Protocol Tamsulosin HCl 0.4 mg 08/23/17 08:30 08/23/17 09:35 Flomax - PO 0.4 mg 0830 [facility] Administration Laboratory Results - last 24 hr 08/22/17 08/22/17 08/22/17 17:10 17:19 23:27 PT with INR 12.10 H INR 1.07 PTT (Actin FS) Sodium Potassium Chloride Carbon Dioxide Anion Gap BUN Creatinine POC Glucometer [phone] Random Glucose Hemoglobin A1c % Calcium B-Natriuretic Peptide Triglycerides Cholesterol Total LDL Cholesterol HDL Cholesterol TSH Stool Occult Blood Negative 08/23/17 08/23/17 08/23/17 01:48 01:48 05:39 PT with INR 12.90 H INR 1.14 PTT (Actin FS) 83.2 H D Sodium 139 Potassium 3.9 Chloride 107 Carbon Dioxide 27 Anion Gap 5 L BUN 14 D Creatinine 0.9 POC Glucometer Random Glucose 120 H D Hemoglobin A1c % Calcium 8.9 B-Natriuretic Peptide 646.07 H Triglycerides 38 Cholesterol 83 Total LDL Cholesterol 42 HDL Cholesterol 40 TSH 1.37 Stool Occult Blood 08/23/17 08/23/17 08/23/17 05:39 05:39 07:19 PT with INR INR PTT (Actin FS) Sodium Potassium Chloride Carbon Dioxide Anion Gap BUN Creatinine POC Glucometer [phone] Random Glucose Hemoglobin A1c % 9.1 H Calcium B-Natriuretic Peptide Triglycerides Cholesterol Total LDL Cholesterol HDL Cholesterol TSH Cancelled Stool Occult Blood 08/23/17 08/23/17 07:20 11:34 PT with INR INR PTT (Actin FS) 60.9 H Sodium Potassium Chloride Carbon Dioxide Anion Gap BUN Creatinine POC Glucometer [phone] Random Glucose Hemoglobin A1c % Calcium B-Natriuretic Peptide Triglycerides Cholesterol Total LDL Cholesterol HDL Cholesterol TSH Stool Occult Blood ASSESSMENT AND PLAN: 81 yom with CAD s/p CABG/Bioprosthetic AVR, s/p PPM, HTN, NIDDM admitted with dizziness/intermittent palpitation. -Dizziness/Intermittent palpitation, r/o new onset atrial fibrillation -CAD s/p ?CABG/AVR -s/p PPM -HTN -NIDDM Plan: Discussed with Dr. Farias. PPM interrogated by him yesterday, underlying runs of afib. 2D echo reviewed, severe MR/TR/bioprosthetic AVR. Discussed with Dr. Farias, ok to start NOAC. Patient education on risks and benefits and need for close follow up. Also diabetic education and need for close monitoring. TSH noted. d.c home today with outpatient PCP and cardiology follow up.
[2017-08-23 16:07] VITALS: BP 138/78; PULSE 65
--- NOTE | 2017-08-23 18:04 | DS ---
Physical Exam: SUBJECTIVE: Patient seen and examined. Offers no new complaints. Says he feels great. Denies chest pain, dizziness, lightheadedness, nausea vomiting. OBJECTIVE: Vital Signs Period Temp Pulse Resp BP Sys/Gauthier Pulse Ox Last 24 Hr 97.4 F-98.1 F 60-76 18-18 136-146/71-89 95-98 PHYSICAL EXAM GENERAL: The patient is awake, alert, and fully oriented, in no acute distress. HEAD: Normal with no signs of trauma. EYES: PERRL, extraocular movements intact, sclera anicteric, conjunctiva clear. ENT: Ears normal, nares patent, oropharynx clear without exudates, moist mucous membranes. NECK: Trachea midline, full range of motion, supple. LUNGS: Breath sounds equal, clear to auscultation bilaterally, no wheezes, no crackles, no accessory muscle use. HEART: Regular rate and rhythm, S1, S2 without murmur, rub or gallop. ABDOMEN: Soft, nontender, nondistended, normoactive bowel sounds, no guarding, no rebound, no hepatosplenomegaly, no masses. EXTREMITIES: 2+ pulses, warm, well-perfused, no edema. NEUROLOGICAL: Cranial nerves II through XII grossly intact. Normal speech, gait not observed. PSYCH: Normal mood, normal affect. SKIN: Warm, dry, normal turgor, no rashes or lesions noted. LABS Laboratory Results - last 24 hr 08/22/17 08/22/17 08/23/17 17:19 23:27 01:48 PT with INR 12.10 H 12.90 H INR 1.07 1.14 PTT (Actin FS) Sodium Potassium Chloride Carbon Dioxide Anion Gap BUN Creatinine POC Glucometer [phone] Random Glucose Hemoglobin A1c % Calcium B-Natriuretic Peptide Triglycerides Cholesterol Total LDL Cholesterol HDL Cholesterol TSH 08/23/17 08/23/17 08/23/17 01:48 05:39 05:39 PT with INR INR PTT (Actin FS) 83.2 H D Sodium 139 Potassium 3.9 Chloride 107 Carbon Dioxide 27 Anion Gap 5 L BUN 14 D Creatinine 0.9 POC Glucometer Random Glucose 120 H D Hemoglobin A1c % 9.1 H Calcium 8.9 B-Natriuretic Peptide 646.07 H Triglycerides 38 Cholesterol 83 Total LDL Cholesterol 42 HDL Cholesterol 40 TSH 1.37 08/23/17 08/23/17 08/23/17 05:39 07:19 07:20 PT with INR INR PTT (Actin FS) 60.9 H Sodium Potassium Chloride Carbon Dioxide Anion Gap BUN Creatinine POC Glucometer [phone] Random Glucose Hemoglobin A1c % Calcium B-Natriuretic Peptide Triglycerides Cholesterol Total LDL Cholesterol HDL Cholesterol TSH Cancelled 08/23/17 11:34 PT with INR INR PTT (Actin FS) Sodium Potassium Chloride Carbon Dioxide Anion Gap BUN Creatinine POC Glucometer [phone] Random Glucose Hemoglobin A1c % Calcium B-Natriuretic Peptide Triglycerides Cholesterol Total LDL Cholesterol HDL Cholesterol TSH HOSPITAL COURSE: Date of Admission:08/22/17 81 yom with CAD s/p CABG/Bioprosthetic AVR, s/p PPM, HTN, NIDDM admitted with dizziness/intermittent palpitation and was found to have paroxysmal a-fib. Patient was started on Heparin drip. Cardiology consulted. Pacemaker interrogated with no defects. Echo was done which revealed severe MR/TR/ bioprosthetic AVR. Discussed case with Dr. Farias and agreed to start the patient on Eliquis. Patient education on risks and benefits and need for close follow up. Also educated patient on diabetes and the important and to to monitoring. Patient was started on eliquis 2.5mg BID and will follow up with PCP and interior design principal outpatient in 1 week. Date of Discharge: 08/23/17 Minutes to complete discharge: 45 Discharge Summary Reason For Visit: INADEQUATE ANTICOAGULATION Condition: Stable - Instructions Diet, Activity, Other Instructions: You have been diagnosed with abnormal rhythm of your heart called 'atrial fibrillation' which can increase risk of strokes You were seen by your cardiology and recommended we start you on blood thinner as your risk of stroke at this stage is high. You are started on new blood thinner eliquis. Please note that it increases risk of bleeding and you will need close monitoring for any bleeding or new concerns. Also abruptly stopping this medication can hugely increase your risk of clotting that can result in strokes, and event . You cannot get any spinal tap (also called lumbar puncture) or spinal procedure while on this medication. You need to notify all your doctors about this medication and closely follow their instructions on this medication before any procedure or intervention. Continue the medication exactly as directed by your doctor and follow up closely for the same. Also your diabetes is poorly controlled and you are confirmed to be on insulin and metformin currently. Please continue and follow up with your doctor in 1 week to discuss further treatment. Take all your other medications as before. Avoid taking any Ibuprofen, motrin or OTC medications except for tylenol without discussing with your doctor Referrals: Akilah Mays [Primary Care Provider] - 1 Week Disposition: HOME - Home Medications Comprehensive Discharge Medication List: Ambulatory Orders Tamsulosin HCl 0.4 mg PO 1800 12/06/12 Amlodipine Besylate [Norvasc -] 10 mg PO DAILY 08/22/17 Aspirin 81 mg PO DAILY 08/22/17 Metformin HCl [Metformin HCl ER] 1,000 mg PO BID 08/22/17 Apixaban [Eliquis -] 2.5 mg PO BID #60 tablet 08/23/17 Insulin Glargine,Hum.rec.anlog [Lantus Solostar PEN -] 15 units SQ HS 08/23/17 Lisinopril [Prinivil -] 40 mg PO DAILY 08/23/17 Prednisolone 1% Ophthalmic [Pred Forte 1% -] 1 drop OS BID 08/23/17 Sitagliptin Phosphate [Januvia] 100 mg PO DAILY 08/23/17 Tadalafil [Cialis] 20 mg PO ASDIR 08/23/17 Timolol 0.5% [Timoptic 0.5%] 1 drop OS BID 08/23/17 This patient is new to me today: Yes Date on this admission: 08/23/17 Emergency Visit: Yes ED Registration Date: 08/22/17 Care time: The patient presented to the Emergency Department on the above date and was hospitalized for further evaluation of their emergent condition. Critical Care patient: No - Discharge Referral Referred to [facility] Med P.C.: No
== END 2017-08-23 16:20 | disposition home or self-care (01) ==
LOC: JER 11:55 → JERBED 18:50
PROVIDERS: ADMIT Hospitalist; ATTEND Hospitalist
PROC: 3E033GC Introduction of Other Therapeutic Substance into Peripheral Vein, Percutaneous Approach (ICD-10-PCS; principal; 2017-08-22)
PROC: 3E013VG Introduction of Insulin into Subcutaneous Tissue, Percutaneous Approach (ICD-10-PCS; 2017-08-22)
DX: I48.91 Unspecified atrial fibrillation (principal); R79.1 Abnormal coagulation profile; R42 Dizziness and giddiness; R00.2 Palpitations; I10 Essential (primary) hypertension; I25.10 Atherosclerotic heart disease of native coronary artery without angina pectoris; E11.9 Type 2 diabetes mellitus without complications; N40.0 Benign prostatic hyperplasia without lower urinary tract symptoms; Z95.5 Presence of coronary angioplasty implant and graft; Z95.0 Presence of cardiac pacemaker; Z95.1 Presence of aortocoronary bypass graft; Z79.82 Long term (current) use of aspirin; E78.5 Hyperlipidemia, unspecified
CPT/HCPCS: 36415; 71045-TC-FY; 80048; 80053; 80061; 81003; 82272; 82550; 82962; 83036; 83721; 83880; 84443; 84484; 85025; 85610; 85730; 87086; 93005; 93010; 93306-TC; 96372; 96374; 99285-25; G0378; J1644

== ENCOUNTER 2018-05-18 17:54 | Inpatient (IN) | payer MEDICARE, OTHER ==
--- NOTE | 2018-05-18 18:37 | PDOC ---
Rapid Medical Evaluation Medical Evaluation: Allergies Allergy/AdvReac Type Severity Reaction Status Date / Time No Known Drug Allergies Allergy Verified 03/01/18 16:15 I have performed a brief in-person evaluation of this patient. The patient presents with a chief complaint of: Generalized weakness x 2 weeks Denies fever, sob, cp, abd pain, n/v/d Went to see junior account manager last week and was told everything was fine with heart Hx of CHF, HTN, DM, CAD (s/p CABG x3), BPH Patient appears a bit pale-yellowish in appearance; otherwise in NAD Plan: CBC, CMP, trop, UA, VBG, lactic acid, EKG, CXR The patient will proceed to the ED for further evaluation. 05/18/18 18:32
[2018-05-18 19:52] LABS: VENOUS PC02 44.7 mmHg (38-52); VENOUS PH 7.35 (7.32-7.42); VENOUS PO2 29.7 mmHg (28-48)
[2018-05-18 20:08] LABS: BASO % 1.4 % (0-2.0); EOS % 3.2 % (0-4.5); LYMPH % 22.2 % (8-40); MCHC 28.6 g/dl (32.0-35.9); MEAN CELL VOLUME 58.6 fl (80-96); MEAN PLT VOLUME 10.4 fl (7.5-11.1); MONO % 22.1 % (3.8-10.2); NEUT % 51.1 % (42.8-82.8); PLATELET COUNT 217 K/MM3 (134-434); RBC 2.22 M/mm3 (4.00-5.60); RDW 24.7 % (11.9-15.9); URINE APPEARANCE CLEAR; URINE BILIRUBIN NEGATIVE (<2.0 mg/dL); URINE COLOR YELLOW; URINE GLUCOSE (UA) NEGATIVE (NEGATIVE); URINE KETONE NEGATIVE (NEGATIVE); URINE LEUK ESTERASE TRACE (NEGATIVE); URINE NITRITE NEGATIVE (NEGATIVE); URINE PROTEIN NEGATIVE (NEGATIVE); URINE UROBILINOGEN NEGATIVE mg/dL (0.2-1.0); WHITE BLOOD COUNT 4.1 K/mm3 (4.0-10.0)
[2018-05-18 20:13] LABS: MCH 16.7 pg (25.7-33.7)
[2018-05-18 20:15] LABS: ALBUMIN 2.8 g/dl (3.4-5.0); ALK PHOS 123 U/L (45-117); ANION GAP 10 MMOL/L (8-16); BILIRUBIN,TOTAL 0.6 mg/dL (0.2-1); BLOOD UREA NITROGEN 38 mg/dL (7-18); CALCIUM 8.2 mg/dL (8.5-10.1); CHLORIDE 107 mmol/L (98-107); CO2 24 mmol/L (21-32); CREATININE 1.9 mg/dL (0.55-1.3); GLUCOSE,RANDOM 249 mg/dL (74-106); MAGNESIUM 2.3 mg/dL (1.8-2.4); N-TERMINAL BNP 1068.2 pg/ml (5-450); POTASSIUM 4.9 mmol/L (3.5-5.1); SGOT/AST 33 U/L (15-37); SGPT/ALT 135 U/L (13-61); SODIUM 141 mmol/L (136-145); TOT PROT 6.5 g/dl (6.4-8.2)
[2018-05-18 20:18] LABS: HEMOGLOBIN 3.7 GM/dL (11.7-16.9)
--- NOTE | 2018-05-18 20:23 | PDOC ---
History of Present Illness - General Chief Complaint: Lethargy Stated Complaint: WEAKNESS Time Seen by Provider: 05/18/18 19:20 History Source: Patient Exam Limitations: No Limitations - History of Present Illness Initial Comments: 05/18/18 20:13 82 yo M with a hx of CHF, CAD s/p CABG x3 in 2005, DM, HTN, and BPH presents to the emergency department with generalized weakness that has been ongoing for 1.5 weeks. States he has no energy and has had shaking throughout. Last cardiac workup was done 1 month ago per the patient by his bad credit collector (Dr. Jenkins in [place]) and stated it was "normal". He has been having poor appetite and denies the following: nausea, vomiting, visual changes, headaches, chest pain, SOB, abdominal pain, hematochezia, hematuria, dysuria, melena, and leg pain/ swelling. His last colonoscopy was "over 10 years ago" and was considered normal. Denies fever and chills. Pmhx: Refer to above Shx: CABG Meds: flomax, eliquis, lisinopril, aspirin 81 mg, amlodipine, furosemide, insulin, januvia. Allergies: NKDA Social: Denies tobacco, alcohol, and substance abuse. 05/18/18 20:51 Past History - Past Medical History Allergies/Adverse Reactions: Allergies Allergy/AdvReac Type Severity Reaction Status Date / Time No Known Drug Allergies Allergy Verified 05/18/18 18:41 Home Medications: Ambulatory Orders Tamsulosin HCl 0.4 mg PO 1800 12/06/12 Amlodipine Besylate [Norvasc -] 10 mg PO DAILY 08/22/17 Aspirin 81 mg PO DAILY 08/22/17 Insulin Glargine,Hum.rec.anlog [Lantus Solostar PEN -] units SQ HS 08/23/17 Lisinopril [Prinivil -] 40 mg PO DAILY 08/23/17 Prednisolone 1% Ophthalmic [Pred Forte 1% -] 1 drop OS BID 08/23/17 Sitagliptin Phosphate [Januvia] 100 mg PO DAILY 08/23/17 Tadalafil [Cialis] 20 mg PO ASDIR 08/23/17 Timolol 0.5% [Timoptic 0.5%] 1 drop OS BID 08/23/17 Apixaban [Eliquis] 5 mg PO BID 03/04/18 Furosemide [Lasix -] 40 mg PO DAILY #30 tablet 03/04/18 Nystatin Cream [Mycostatin Cream -] 1 applic TP BID #14 applic 03/04/18 COPD: No Diabetes: Yes HTN: Yes - Surgical History Abdominal Surgery: Yes (HERNIA REPAIR) Cardiac Surgery: Yes (VALVE REPLACED/PACEMAKER) - Suicide/Smoking/Psychosocial Hx Smoking Status: No Smoking History: Smoker current status UNK Have you smoked in the past 12 months: No Number of Cigarettes Smoked Daily: 0 Hx Alcohol Use: No Drug/Substance Use Hx: No Substance Use Type: None Hx Substance Use Treatment: No Review of Systems - Review of Systems Able to Perform ROS?: Yes Is the patient limited Belarusian proficient: No Constitutional: Yes: Weakness. No: Chills, Diaphoresis, Fever HEENTM: No: Recent change in vision, Nose Pain, Throat Pain, Mouth Pain Respiratory: No: Cough, Shortness of Breath, Hemoptysis Cardiac (ROS): No: Chest Pain, Edema, Irregular Heart Rate, Lightheadedness, Palpitations, Syncope, Chest Tightness ABD/GI: No: Blood Streaked Bowels, Constipated, Diarrhea, Nausea, Rectal Bleeding, Vomiting, Abdominal cramping, Tarry Stools : No: Burning, Dysuria, Flank Pain, Hematuria Musculoskeletal: Yes: Muscle Weakness. No: Back Pain Integumentary: No: Flushing, Lumps, Rash Neurological: No: Headache, Numbness Psychiatric: No: Stressors Endocrine: No: Unexplained Weight Gain Hematologic/Lymphatic: No: Anemia *Physical Exam - Vital Signs Last Vital Signs Temp Pulse Resp BP Pulse Ox 98.2 F 85 20 107/53 L 99 05/18/18 18:42 05/18/18 18:42 05/18/18 18:42 05/18/18 18:42 05/18/18 18:42 - Physical Exam General Appearance: Yes: Nourished, Appropriately Dressed, Other (pale on appearance) HEENT: positive: EOMI, MONCHO, Normal ENT Inspection, Pale Conjunctivae. negative : Scleral Icterus (R), Scleral Icterus (L), Muffled/Hoarse voice Neck: positive: Trachea midline. negative: Lymphadenopathy (R), Lymphadenopathy (L) Respiratory/Chest: positive: Lungs Clear, Normal Breath Sounds. negative: Chest Tender, Respiratory Distress, Accessory Muscle Use Cardiovascular: positive: Regular Rhythm, Regular Rate, S1, S2. negative: Systolic Murmur Gastrointestinal/Abdominal: positive: Normal Bowel Sounds, Flat, Soft. negative : Tender Rectal Exam: positive: heme negative stool, normal rectal tone. negative: NL Prostate (enlarged), hemorrhoids Lymphatic: negative: Adenopathy Musculoskeletal: negative: CVA Tenderness (R), CVA Tenderness (L) Extremity: positive: Normal Range of Motion, Delayed Capillary Refill, Other ( pale). negative: Normal Inspection, Tender Integumentary: positive: Dry, Warm, Pale Neurologic: positive: machine riveter II-XII NML intact, Fully Oriented, Alert, Normal Mood/ Affect, Normal Response, Motor Strength 5/5. negative: Sensory Deficit ED Treatment Course - LABORATORY CBC & Chemistry Diagram: 05/18/18 19:28 05/18/18 19:28 - ADDITIONAL ORDERS Additional order review: Laboratory Results 05/18/18 19:28 VBG pH 7.35 POC VBG pCO2 44.7 POC VBG pO2 29.7 Mixed VBG HCO3 24.2 - RADIOLOGY Radiology Studies Ordered: Category Date Time Status HEAD CT WITHOUT CONTRAST [CT] Stat CT Scan 05/18/18 19:52 Ordered CHEST X-RAY PORTABLE* [RAD] Stat Radiology 05/18/18 19:53 Taken Medical Decision Making - Medical Decision Making 82 yo M with a hx of CHF, CAD s/p CABG x3 in 2005, DM, HTN, and BPH presents to the emergency department with generalized weakness that has been ongoing for 1.5 weeks. Initial vitals: Initial Vital Signs Temp Pulse Resp BP Pulse Ox 98.2 F 85 20 107/53 L 99 05/18/18 18:42 05/18/18 18:42 05/18/18 18:42 05/18/18 18:42 05/18/18 18:42 Work up: Laboratory Tests 05/18/18 05/18/18 05/18/18 19:28 19:28 19:28 WBC 4.1 RBC 2.22 L Hgb 3.7 L* Hct 13.0 L MCV 58.6 L D MCH 16.7 L D MCHC 28.6 L RDW 24.7 H Plt Count 217 D MPV 10.4 Absolute Neuts (auto) 2.1 Total Counted 100 Neutrophils % 51.1 D Neutrophils % (Manual) 54.0 Band Neutrophils % 1.0 Lymphocytes % 22.2 D Lymphocytes % (Manual) 28.0 Monocytes % 22.1 H Monocytes % (Manual) 10 Eosinophils % 3.2 Eosinophils % (Manual) 7.0 H Basophils % 1.4 Nucleated RBC % 0 Hypochromia 3+ Platelet Estimate Adequate Platelet Comment Large platelets Polychromasia 1+ Poikilocytosis 1+ Anisocytosis 2+ Microcytosis 1+ Macrocytosis 3+ Spherocytes 1+ VBG pH 7.35 POC VBG pCO2 44.7 POC VBG pO2 29.7 Mixed VBG HCO3 24.2 Sodium Potassium Chloride Carbon Dioxide Anion Gap BUN Creatinine Creat Clearance w eGFR Random Glucose Lactic Acid Calcium Magnesium Total Bilirubin AST ALT Alkaline Phosphatase Troponin I B-Natriuretic Peptide Total Protein Albumin Urine Color Yellow Urine Appearance Clear Urine pH 5.0 D Ur Specific [place] 1.013 Urine Protein Negative Urine Glucose (UA) Negative Urine Ketones Negative Urine Blood Negative Urine Nitrite Negative Urine Bilirubin Negative Urine Urobilinogen Negative Ur Leukocyte Esterase Trace Urine WBC (Auto) 16 Urine RBC (Auto) <1 Ur Epithelial Cells Rare Hyaline Casts 4 Urine Mucus Rare 05/18/18 05/18/18 19:28 19:28 WBC RBC Hgb Hct MCV MCH MCHC RDW Plt Count MPV Absolute Neuts (auto) Total Counted Neutrophils % Neutrophils % (Manual) Band Neutrophils % Lymphocytes % Lymphocytes % (Manual) Monocytes % Monocytes % (Manual) Eosinophils % Eosinophils % (Manual) Basophils % Nucleated RBC % Hypochromia Platelet Estimate Platelet Comment Polychromasia Poikilocytosis Anisocytosis Microcytosis Macrocytosis Spherocytes VBG pH POC VBG pCO2 POC VBG pO2 Mixed VBG HCO3 Sodium 141 Potassium 4.9 Chloride 107 Carbon Dioxide 24 Anion Gap 10 BUN 38 H Creatinine 1.9 H Creat Clearance w eGFR 34.02 Random Glucose 249 H Lactic Acid 2.2 H* Calcium 8.2 L Magnesium 2.3 Total Bilirubin 0.6 AST 33 ALT 135 H Alkaline Phosphatase 123 H Troponin I 0.02 B-Natriuretic Peptide 1068.2 H Total Protein 6.5 Albumin 2.8 L Urine Color Urine Appearance Urine pH Ur Specific [place] Urine Protein Urine Glucose (UA) Urine Ketones Urine Blood Urine Nitrite Urine Bilirubin Urine Urobilinogen Ur Leukocyte Esterase Urine WBC (Auto) Urine RBC (Auto) Ur Epithelial Cells Hyaline Casts Urine Mucus 05/18/18 21:11 It was relayed to me approximately 30 minutes ago that the patient's hemoglobin was 3.7. A type and screen was ordered as well as a PT/INR and aptt. A stool occult test was performed. On gross examination, no bright red blood per rectum was noted and the stool occult was sent to the lab. I notified the blood bank at approximately 9:09 pm about the need for blood to be processed expeditiously. At the time, the patients is non tachycardia and blood pressure is mildly hypotensive. We will transfuse 2 units at a time and then give 20 mg of lasix and then 2 units of PRBCs. This is because he appears fluid overloaded on cxr. Will be admitted for anemia. Dispo: admit *DC/Admit/Observation/Transfer Diagnosis at time of Disposition: Anemia Qualifiers: Anemia type: unspecified type Qualified Code(s): D64.9 - Anemia, unspecified - Referrals - Patient Instructions - Post Discharge Activity
[2018-05-18 20:56] LABS: EPI CELLS RARE /HPF (FEW); URINE HYALINE CAST 4 /lpf; URINE MUCUS RARE
--- NOTE | 2018-05-18 20:58 | PDOC ---
Attending Attestation - Resident Resident Name: Flakito Trinidad - ED Attending Attestation I have performed the following: I have examined & evaluated the patient, The case was reviewed & discussed with the resident, I agree w/resident's findings & plan, Exceptions are as noted - Medical Decision Making 05/18/18 20:55 I, Dr. Sada Valentino, DO, attest that this document has been prepared under my direction and personally reviewed by me in its entirety. I further attest, that it accurately reflects all work, treatment, procedures and medical decision -making performed by me. 05/18/18 20:55 a/p: 82yo male with weakness x 1.5 weeks -hx of chf and cad -pt denies change in stool color or bleeding -pt is on elaquis -pt with a pacer -pt very pale -denies sob or cp -pt is able to lay flat on the bed -denies f/c -will send labs, ekg, cxr, head ct -will monitor and reassess 05/18/18 20:57 hgb 3 down from 11 in february will need blood transfusion also with CHAIM most likely from hgb loss -will need admission 05/18/18 21:24 case discussed with the IM resident who accepts pt to service under Dr. Henderson <Sada Valentino - Last Filed: 05/18/18 21:24> - HPI HPI: 05/18/18 22:43 The patient is a 82 year old male, with a significant past medical history of HTN, DMII, CAD s/p CABG, PPM, and BPH, who presents to the emergency department with, a week and half of weakness. Patient endorses increasing shortness of breath without chest pain. Allergies: NKDA Social History: Nonsmoker. Denies EtOH use and recreational drug use. Primary Care Physician: Dr. Mays - Physicial Exam PE: 05/18/18 22:43 Constitutional: Awake, alert, oriented. No acute distress. +Head: Pale. Normocephalic. Atraumatic Eyes: PERRL. EOMI. Conjunctivae are not pale. ENT: Mucous membranes are moist and intact. Posterior pharynx without exudates or erythema. Uvula midline. Neck: Supple. Full ROM. No lymphadenopathy. Cardiovascular: Pacer in the left chest. Regular rate. Regular rhythm. S1, S2 regular. Distal pulses are 2+ and symmetric. +Pulmonary/Chest: Diminished at the bases. No wheezing, rales or rhonchi. Abdominal: Soft and non-distended. There is no tenderness. No rebound, guarding or rigidity. No organomegaly. No palpable masses. Good bowel sounds. Back: No CVA tenderness. Musculoskeletal: No edema. No cyanosis. No clubbing. Full range of motion in all extremities. No calf tenderness. Radial/pedal pulses are intact and 2+ bilaterally Skin: Skin is warm and dry. No petechiae. No purpura. Neurological: Alert and oriented to person, place, and time. Cranial nerves II -XII are grossly intact. Normal speech. Strength is grossly symmetric. No sensory deficits. Psychiatric: Good eye contact. Normal interaction, affect and behavior. <Lillian Mills - Last Filed: 05/18/18 22:43> Heart Score/ECG Review - ECG Intrepretation Comment:: 05/18/18 20:57 paced at 77, no acute st/t wave findings <Sada Valentino - Last Filed: 05/18/18 21:24> Attestations - Attestations 05/18/18 22:43 Documentation prepared by Lillian Mills, acting as medical services coordinator for Sada Valentino DO. <Lillian Mills - Last Filed: 05/18/18 22:43>
--- NOTE | 2018-05-18 21:32 | PN ---
Teaching Attending Note Name of Resident: Nydia Sams ATTENDING PHYSICIAN STATEMENT I saw and evaluated the patient. I reviewed the resident's note and discussed the case with the resident. I agree with the resident's findings and plan as documented. SUBJECTIVE: Patient is an 82 year old man with a history of CHF, CAD s/p CABG x3 in 2005, DM , HTN, heart valve replacement, Pacemaker and BPH who presents to the ER with generalized weakness that has been ongoing for 1.5 weeks. States he has no energy and has had shaking throughout. Last cardiac workup was done 1 month ago per the patient by his cake batter mixer (Dr. Jenkins in [place]) and stated it was "normal". He has been having poor appetite and denies the following: nausea, vomiting, visual changes, headaches, chest pain, SOB, abdominal pain, hematochezia, hematuria, dysuria, melena, and leg pain/swelling. His last colonoscopy was "over 10 years ago" and was considered normal. Denies fever and chills. OBJECTIVE: Alert Vital Signs Period Temp Pulse Resp BP Sys/Gauthier Pulse Ox Last 24 Hr 98.2 F 85 20 107/53 99 HEENT: No Jaundice, eye redness or discharge, PERRLA, EOMI. Normocephalic, atraumatic. External ears are normal and hearing is grossly intact. No nasal discharge. Neck: Supple, nontender. No palpable adenopathy or thyromegaly. No JVD Chest: Good effort. Clear to auscultation and percussion. Heart: Regular. No S3, rub or murmur Abdomen: Not distended, soft, nontender and no HSM. No rebound or guarding. Normoactive bowel sounds. Ext: Peripheral pulses intact. No leg edema. Skin: Warm and dry. No petechiae, rash or ecchymosis. Neuro: Alert. Oriented x3. CN 2-12 grossly intact. Sensation grossly intact in all four extremities and DTR are symmetric. Home Medications Medication Instructions Recorded Tamsulosin HCl 0.4 mg PO 1800 12/06/12 Amlodipine Besylate [Norvasc -] 10 mg PO DAILY 08/22/17 Aspirin 81 mg PO DAILY 08/22/17 Insulin Glargine,Hum.rec.anlog units SQ HS 08/23/17 [Lantus Solostar PEN -] Lisinopril [Prinivil -] 40 mg PO DAILY 08/23/17 Prednisolone 1% Ophthalmic [Pred 1 drop OS BID 08/23/17 Forte 1% -] Sitagliptin Phosphate [Januvia] 100 mg PO DAILY 08/23/17 Tadalafil [Cialis] 20 mg PO ASDIR 08/23/17 Timolol 0.5% [Timoptic 0.5%] 1 drop OS BID 08/23/17 Apixaban [Eliquis] 5 mg PO BID 03/04/18 Furosemide [Lasix -] 40 mg PO DAILY #30 tablet 03/04/18 Nystatin Cream [Mycostatin Cream -] 1 applic TP BID #14 applic 03/04/18 Abnormal Lab Results 05/18/18 05/18/18 05/18/18 19:28 19:28 19:28 RBC 2.22 L Hgb 3.7 L* Hct 13.0 L MCV 58.6 L D MCH 16.7 L D MCHC 28.6 L RDW 24.7 H Monocytes % 22.1 H PT with INR INR BUN 38 H Creatinine 1.9 H Random Glucose 249 H Lactic Acid 2.2 H* Calcium 8.2 L ALT 135 H Alkaline Phosphatase 123 H B-Natriuretic Peptide 1068.2 H Albumin 2.8 L Crossmatch 05/18/18 05/18/18 20:53 21:01 RBC Hgb Hct MCV MCH MCHC RDW Monocytes % PT with INR 27.10 H INR 2.28 H BUN Creatinine Random Glucose Lactic Acid Calcium ALT Alkaline Phosphatase B-Natriuretic Peptide Albumin Crossmatch See Detail ASSESSMENT AND PLAN: 1. Symptomatic anemia - Likely due to GI loss - Hb was >11 g/dl just 2 months ago. Do basic anemia work up including serial stool guaiacs, reticulocyte count and iron studies. Head CT scan and CXR do not show any new abnormalities. Getting PRBC transfusion and IV lasix. Will get abd/pelvic CT, hold eliquis and consult cardiology. Will treat UTI with Rocephin pending urine culture, trend LFTs and Lactic acid. Consult GI. 2. Hypoalbuminemia - Possibly due to combined effects of malnutrition and inflammation associated with comorbid chronic conditions. Will ensure adequate dietary protein intake and also consult electronic equipment set up operator. 3. DM - For now, we will hold the home diabetes drugs and implement sliding scale insulin regimen. Provide comprehensive diabetes care with patient teaching and counseling about the importance of euglycemia, eye care and foot care. 4. CHAIM - Will consult nephrology and avoid nephrotoxic agents such as NSAIDS, aminoglycosides, contrast dyes and certain Alternative medicine products. 5. DVT prophylaxis - On Eliquis. SCD, TEDs 6. Advance directives - Full code
[2018-05-18 21:33] LABS: INR 2.28 (0.83-1.09); PROTHROMBIN TIME (PATIENT) 27.1 SEC (9.7-13.0)
[2018-05-18 21:35] LABS: ACTIVATED PTT 27.9 SECONDS (25.2-36.5)
--- NOTE | 2018-05-18 22:50 | HP ---
CHIEF COMPLAINT: weakness PCP: Dr. Mays HISTORY OF PRESENT ILLNESS: Patient is a 82 y/o male with a history of CHF, CAD s/p CABG, DM, HTN, and BPH who presents for weakness. Patient reports over the last week and a half he has been feeling tired and having difficulty getting out of bed. His family thinks he has been weak for a longer amount of time. Patient did have a cough and congestion about two weeks ago. He denies coughing blood. Patient has never been told he has low blood count before. His reports within the last week he had two very dark stools, but he did not feel they were abnormal. He has never had any blood in his stool, constipation, or vomiting of blood. Patient reports he had a colonocsopy years ago and was not told anything was abnormal. Patient does not think he has been taking any different medication. Patient denies any family history of colon disease or colon cancer. Patient denies fever , chills, headache, shortness of breath, or chest pain. Patient is from the [place] and moved 19 years ago. His occupation was farming. ER course was notable for: (1) (2) (3) Recent Travel: denies PAST MEDICAL HISTORY: CHF, CAD, DM, HTN, BPH PAST SURGICAL HISTORY: CABG Social History: Smoking: denies, never smoked Alcohol: denies, never used Drugs: denies Family History: Allergies No Known Drug Allergies Allergy (Verified 05/18/18 18:41) HOME MEDICATIONS: Home Medications Medication Instructions Recorded Tamsulosin HCl 0.4 mg PO 1800 12/06/12 Amlodipine Besylate [Norvasc -] 10 mg PO DAILY 08/22/17 Aspirin 81 mg PO DAILY 08/22/17 Insulin Glargine,Hum.rec.anlog units SQ HS 08/23/17 [Lantus Solostar PEN -] Lisinopril [Prinivil -] 40 mg PO DAILY 08/23/17 Prednisolone 1% Ophthalmic [Pred 1 drop OS BID 08/23/17 Forte 1% -] Sitagliptin Phosphate [Januvia] 100 mg PO DAILY 08/23/17 Tadalafil [Cialis] 20 mg PO ASDIR 08/23/17 Timolol 0.5% [Timoptic 0.5%] 1 drop OS BID 08/23/17 Apixaban [Eliquis] 5 mg PO BID 09/09/18 Furosemide [Lasix -] 40 mg PO DAILY #30 tablet 03/04/18 Nystatin Cream [Mycostatin Cream -] 1 applic TP BID #14 applic 03/04/18 REVIEW OF SYSTEMS CONSTITUTIONAL: generalized weakness Absent: fever, chills, diaphoresis, malaise, loss of appetite, weight change HEENT: Absent: rhinorrhea, nasal congestion, throat pain, throat swelling, difficulty swallowing, mouth swelling, ear pain, eye pain, visual changes CARDIOVASCULAR: Absent: chest pain, syncope, palpitations, irregular heart rate, lightheadedness , peripheral edema RESPIRATORY: Absent: cough, shortness of breath, dyspnea with exertion, orthopnea, wheezing, stridor, hemoptysis GASTROINTESTINAL: Absent: abdominal pain, abdominal distension, nausea, vomiting, diarrhea, constipation, melena, hematochezia GENITOURINARY: Absent: dysuria, frequency, urgency, hesitancy, hematuria, flank pain, genital pain MUSCULOSKELETAL: Absent: myalgia, arthralgia, joint swelling, back pain, neck pain SKIN: Absent: rash, itching, pallor HEMATOLOGIC/IMMUNOLOGIC: Absent: easy bleeding, easy bruising, lymphadenopathy, frequent infections ENDOCRINE: Absent: unexplained weight gain, unexplained weight loss, heat intolerance, cold intolerance NEUROLOGIC: Absent: headache, focal weakness or paresthesias, dizziness, unsteady gait, seizure, mental status changes, bladder or bowel incontinence PSYCHIATRIC: Absent: anxiety, depression, suicidal or homicidal ideation, hallucinations. PHYSICAL EXAMINATION Vital Signs - 24 hr 05/18/18 18:42 Temperature 98.2 F Pulse Rate 85 Respiratory 20 Rate Blood Pressure 107/53 L O2 Sat by Pulse 99 Oximetry (%) GENERAL: Awake, alert, and fully oriented, in no acute distress. Pale HEAD: Normal with no signs of trauma. EYES: Pupils equal, round and reactive to light, extraocular movements intact, sclera anicteric, left eye deviated to the left EARS, NOSE, THROAT: Moist mucous membranes. No evidence of jaundice NECK: Normal range of motion, supple without lymphadenopathy, JVD, or masses. LUNGS: Breath sounds equal, clear to auscultation bilaterally. No wheezes, and no crackles. No accessory muscle use. HEART: Regular rate and rhythm, normal S1 and S2 without murmur, rub or gallop. Pacemaker ABDOMEN: Soft, nontender, not distended, normoactive bowel sounds, no guarding, no rebound, no masses. Tympanic to percussion MUSCULOSKELETAL: Normal range of motion at all joints. No bony deformities or tenderness. LOWER EXTREMITIES: 2+ pulses, warm, well-perfused. No calf tenderness. No peripheral edema. RECTAL: no internal or external hemorrhoids, no stool in the vault, no blood per rectum NEUROLOGICAL: Cranial nerves II-XII intact. Normal speech. Muscle strength 5/5 UE and 5/5 LE PSYCHIATRIC: Cooperative. Good eye contact. Appropriate mood and affect. SKIN: Warm, dry, normal turgor, no rashes or lesions noted, normal capillary refill. CBC, BMP 05/18/18 19:28 05/18/18 19:28 Urine Test Results Urine Color Yellow 05/18/18 19: Urine Appearance Clear 05/18/18 19:28 Urine pH 5.0 (5.0-8.0) D 05/18/18 19:28 Ur Specific [place] 1.013 (1.010-1.035) 05/18/18 19:28 Urine Protein Negative (NEGATIVE) 05/18/18 19:28 Urine Glucose (UA) Negative (NEGATIVE) 05/18/18 19:28 Urine Ketones Negative (NEGATIVE) 05/18/18 19:28 Urine Blood Negative (NEGATIVE) 05/18/18 19:28 Urine Nitrite Negative (NEGATIVE) 05/18/18 19:28 Urine Bilirubin Negative (<2.0 mg/dL) 05/18/18 19:28 Ur Leukocyte Esterase Trace (NEGATIVE) 05/18/18 19:28 Ur Epithelial Cells Rare /HPF (FEW) 05/18/18 19:28 Urine Mucus Rare 05/18/18 19:28 ASSESSMENT/PLAN: Patient is a 82 y/o male with a history of CHF, CAD s/p CABG, DM, HTN, and BPH who presents for weakness. #Weakness 2/2 to anemia likely GI bleed, cannot r/o malignancy vs production - patients hgb : 3.7, 11.2 on 03/04/18 - ED ordered 4 units of blood - instructed nurse to give 20 units of lasix after second unit - f/u CT of abdomen - Consulted Dr. Barker for GI, patient will likely need colonoscopy - FOBT negative - Protonix 40 mg po daily - NPO for potential procedure tomorrow - LA: 2.2, continue to trend ( 2nd one not drawn at appropriate time, f/u with morning labs) - f/u iron studies - elliquis held #UTI - UA: WBC: 16, trace LE - Rocephin 1 gm daily - f/u UCX - monitor clinically #CHAIM likely prerenal - f/ u repeat in morning - monitor for improvement with transfusion #DM - SS prn - f/u A1C - antiglycemic medications held #CHF - Echo 03/13: EF: 50%, LV systolic fxn low, RV systolic fxn normal, LA mildly dilated - medications held - CXR: mild congestive changes, similar to 03/13 XRay - patient to receive 20 lasix after 2 units of blood #HTN - antihypertensives held - resume when hemodynamically stable Dispo: home medications held Visit type - Emergency Visit Emergency Visit: Yes ED Registration Date: 05/18/18 Care time: The patient presented to the Emergency Department on the above date and was hospitalized for further evaluation of their emergent condition. - New Patient This patient is new to me today: Yes Date on this admission: 05/19/18 - Critical Care Critical Care patient: No
[2018-05-18 23:24] LABS: ANISOCYTOSIS 2+; MACROCYTOSIS 3+
[2018-05-18 23:25] LABS: PLATELET ESTIMATE ADEQUATE
[2018-05-19] MEDS: INSULIN SLIDING SCALE (NOVOLOG) 1 VIAL SQ SCH ×4 (06:27→21:21)
[2018-05-19] MEDS ORDERED: FUROSEMIDE 40 MG/4 ML INJECTABLE VIAL IVPUSH ONE (08:32)
[2018-05-19] MEDS: PANTOPRAZOLE SODIUM 40 MG VIAL IVPUSH SCH (09:05)
[2018-05-19] MEDS ORDERED: DEXTROSE 5%-WATER - 50 ML IVPB ONE (09:07)
[2018-05-19] MEDS ORDERED: cefTRIAXone SODIUM 1 GM VIAL ONE (09:07)
[2018-05-19] MEDS: CEFTRIAXONE 1 GM in DEXTROSE 5%-WATER - 50 ML IVPB SCH (09:12)
--- NOTE | 2018-05-19 09:19 | PN ---
Progress Note (short form) - Note Progress Note: Vital Signs Temperature 97.8 F 05/19/18 08:15 Pulse Rate 65 05/19/18 08:15 Respiratory Rate 16 05/19/18 08:15 Blood Pressure 117/57 L 05/19/18 08:15 O2 Sat by Pulse Oximetry (%) 94 L 05/19/18 01:22 GENERAL: Awake, alert, and fully oriented, in no acute distress. Pale HEAD: Normal with no signs of trauma. EYES: Pupils equal, round and reactive to light, extraocular movements intact, sclera anicteric, left eye deviated to the left EARS, NOSE, THROAT: Moist mucous membranes. No evidence of jaundice NECK: Normal range of motion, supple without lymphadenopathy, JVD, or masses. LUNGS: Breath sounds equal, clear to auscultation bilaterally. No wheezes, and no crackles. No accessory muscle use. HEART: Regular rate and rhythm, normal S1 and S2 without murmur, rub or gallop. Pacemaker ABDOMEN: Soft, nontender, not distended, normoactive bowel sounds, no guarding, no rebound, no masses. Tympanic to percussion MUSCULOSKELETAL: Normal range of motion at all joints. No bony deformities or tenderness. EXTREMITIES: 2+ pulses, warm, well-perfused. No calf tenderness. No peripheral edema. RECTAL: no internal or external hemorrhoids, no stool in the vault, no blood per rectum NEUROLOGICAL: Cranial nerves II-XII intact. Normal speech. Muscle strength 5/5 UE and 5/5 LE PSYCHIATRIC: Cooperative. Good eye contact. Appropriate mood and affect. SKIN: Warm, dry, normal turgor, no rashes or lesions noted, normal capillary refill. CBCD WBC 4.1 K/mm3 (4.0-10.0) 05/18/18 19:28 RBC 2.22 M/mm3 (4.00-5.60) L 05/18/18 19:28 Hgb 3.7 GM/dL (11.7-16.9) L* 05/18/18 19:28 Hct 13.0 % (35.4-49) L 05/18/18 19:28 MCV 58.6 fl (80-96) L D 05/18/18 19:28 MCHC 28.6 g/dl (32.0-35.9) L 05/18/18 19:28 RDW 24.7 % (11.9-15.9) H 05/18/18 19:28 Plt Count 217 K/MM3 (134-434) D 05/18/18 19:28 MPV 10.4 fl (7.5-11.1) 05/18/18 19:28 CMP Sodium 141 mmol/L (136-145) 05/18/18 19:28 Potassium 4.9 mmol/L (3.5-5.1) 05/18/18 19:28 Chloride 107 mmol/L (98-107) 05/18/18 19:28 Carbon Dioxide 24 mmol/L (21-32) 05/18/18 19:28 Anion Gap 10 MMOL/L (8-16) 05/18/18 19:28 BUN 38 mg/dL (7-18) H 05/18/18 19:28 Creatinine 1.9 mg/dL (0.55-1.3) H 05/18/18 19:28 Creat Clearance w eGFR 34.02 (>60) 05/18/18 19:28 Random Glucose 249 mg/dL (74-106) H 05/18/18 19:28 Calcium 8.2 mg/dL (8.5-10.1) L 05/18/18 19:28 Total Bilirubin 0.6 mg/dL (0.2-1) 05/18/18 19:28 AST 33 U/L (15-37) 05/18/18 19:28 ALT 135 U/L (13-61) H 05/18/18 19:28 Alkaline Phosphatase 123 U/L (45-117) H 05/18/18 19:28 Total Protein 6.5 g/dl (6.4-8.2) 05/18/18 19:28 Albumin 2.8 g/dl (3.4-5.0) L 05/18/18 19:28 CARDIAC ENZYMES Troponin I 0.02 ng/ml (0.00-0.05) 05/18/18 19:28 Current Medications Generic Name Dose Route Start Last Admin Trade Name Freq PRN Reason Stop Dose Admin Ceftriaxone Sodium 1 gm/ 50 mls @ 100 mls/hr 05/19/18 10:00 05/19/18 09:12 Dextrose IVPB 100 mls/hr DAILY [facility] Administration Insulin Aspart 1 vial 05/19/18 07:00 05/19/18 06:27 Novolog Vial Sliding Scale - SQ Not Given ACHS [facility] Protocol Pantoprazole Sodium 40 mg 05/19/18 10:00 05/19/18 09:05 Protonix Iv IVPUSH 40 mg DAILY [facility] Administration Home Medications Medication Instructions Recorded Tamsulosin HCl 0.4 mg PO 1800 12/06/12 Amlodipine Besylate [Norvasc -] 10 mg PO DAILY 08/22/17 Aspirin 81 mg PO DAILY 08/22/17 Insulin Glargine,Hum.rec.anlog units SQ HS 08/23/17 [Lantus Solostar PEN -] Lisinopril [Prinivil -] 40 mg PO DAILY 08/23/17 Prednisolone 1% Ophthalmic [Pred 1 drop OS BID 08/23/17 Forte 1% -] Sitagliptin Phosphate [Januvia] 100 mg PO DAILY 08/23/17 Tadalafil [Cialis] 20 mg PO ASDIR 08/23/17 Timolol 0.5% [Timoptic 0.5%] 1 drop OS BID 08/23/17 Apixaban [Eliquis] 5 mg PO BID 03/04/18 Furosemide [Lasix -] 40 mg PO DAILY #30 tablet 03/04/18 Nystatin Cream [Mycostatin Cream -] 1 applic TP BID #14 applic 03/04/18 A/P: Patient is a 82 y/o male with a history of CHF, CAD s/p CABG, DM, HTN, and BPH who presents for weakness. # Acute anemia due to having ACute blood loss cannot r/o malignancy , elliquis held, iron panel studies. 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 Dispo: home medications held Visit type - Emergency Visit Emergency Visit: Yes ED Registration Date: 05/18/18 Care time: The patient presented to the Emergency Department on the above date and was hospitalized for further evaluation of their emergent condition. - New Patient This patient is new to me today: Yes Date on this admission: 11/24/18 - Critical Care Critical Care patient: No - Discharge Referral Referred to [facility] Med P.C.: No
--- NOTE | 2018-05-19 11:59 | EKG ---
Test Reason : Blood Pressure : / mmHG Vent. Rate : 077 BPM Atrial Rate : 079 BPM P-R Int : 000 ms QRS Dur : 162 ms QT Int : 452 ms P-R-T Axes : 000 -72 119 degrees QTc Int : 511 ms Ventricular-paced rhythm ABNORMAL ECG WHEN COMPARED WITH ECG OF 01-MAR-2018 17:31, VENT. RATE HAS INCREASED BY 16 BPM Confirmed by CLEVE CARREON MD ([id number]) on 05/19/2018 11:59:10 AM Referred By: Confirmed By:CLEVE CARREON MD
--- NOTE | 2018-05-19 15:37 | CONS ---
DATE OF CONSULTATION: DATE OF DICTATION: 05/19/2018 Mr. Castro is an 82-year-old male with a past medical history of CHF, CAD, bypass surgery, on anticoagulation, diabetes, hypertension, BPH who is admitted to the hospital after having complaints of weakness over the past couple of weeks. He reports his last colonoscopy was a year ago and as per the son-in- law at the bedside there were no acute findings. They did not recall who did the colonoscopy. He has never had an upper endoscopy in the past. The patient denies any abdominal pain, nausea, vomiting, hematemesis, hematochezia. He does admit to a few months ago noticing some intermittent dark-colored stool which has been resolved. He has never had an upper endoscopy. He denies additional NSAID use. REVIEW OF SYSTEMS: Negative for syncope, chest pain, shortness of breath, or palpitations. PAST MEDICAL AND SURGICAL HISTORY: As listed in the HPI. SOCIAL HISTORY: Does not smoke, drink, or use drugs. ALLERGIES: No known drug allergies. HOME MEDICATIONS: Include tamsulosin, amlodipine, aspirin, insulin, lisinopril , eye drops, Januvia, Cialis, Eliquis, Lasix, and nystatin cream. PHYSICAL EXAMINATION: Vital Signs: Temperature 98, pulse 63, blood pressure has been systolically between 103 and 117, respiratory rate 12, oxygen saturation 97% on room air. General: In no acute distress. Pleasant man. HEENT: Anicteric sclerae. Cardiovascular: S1, S2, regular rate and rhythm. Lungs: Bilaterally clear to auscultation. Abdomen: Soft and nontender. Extremities: No edema. LABORATORIES: White blood cell count 4.1, hemoglobin 3.7, hematocrit 13, MCV 58 , platelet count 217, INR 2.2. Sodium 141, potassium 4.9, BUN 38, creatinine 1.9, glucose 249. Lactic acid was 2, currently it is 1.4. Bilirubin 0.6, AST 33, ALT 135, alkaline phosphatase 123. BNP 1000. Noncontrast abdomen and pelvis CT scan was performed in the emergency room and revealed cardiomegaly and bilateral pleural effusions, small gallstones in the gallbladder without evidence of intra-abdominal or retroperitoneal lymphadenopathy or fluid collection. No abscesses. Also some ascites, small amount within the upper abdomen. IMPRESSION: Severe microcytic anemia in the setting of anticoagulation. Differential diagnoses includes peptic ulcer disease, angiectasias. Adenocarcinoma cannot be excluded at this time. He is hemodynamically stable without sign of an overt gastrointestinal bleed. RECOMMENDATION: Transfuse PRBC to a hemoglobin of 10. Start him on a Protonix infusion. Serial CBC q.8 hours. Hold anticoagulation. Will prepare for endoscopic evaluation on Monday. If he were to develop signs of an overt GI bleed, urgent endoscopy can be performed over the weekend. Will follow this patient with you. DO MIKI LOREDO/[id number] MTDD
[2018-05-19 20:16] LABS: BASO % 1.3 % (0-2.0); EOS % 2.8 % (0-4.5); HEMATOCRIT 19.6 % (35.4-49); LYMPH % 4.9 % (8-40); MCH 20.9 pg (25.7-33.7); MCHC 31.8 g/dl (32.0-35.9); MEAN CELL VOLUME 65.8 fl (80-96); MEAN PLT VOLUME 9.4 fl (7.5-11.1); MONO % 11.2 % (3.8-10.2); NEUT % 79.8 % (42.8-82.8); PLATELET COUNT 175 K/MM3 (134-434); RBC 2.97 M/mm3 (4.00-5.60); RDW 33.6 % (11.9-15.9); WHITE BLOOD COUNT 5.4 K/mm3 (4.0-10.0)
[2018-05-19 20:20] LABS: HEMOGLOBIN 6.2 GM/dL (11.7-16.9)
[2018-05-20] MEDS: INSULIN SLIDING SCALE (NOVOLOG) 1 VIAL SQ SCH ×4 (06:14→21:27)
[2018-05-20 06:40] LABS: SERUM IRON SATURATION 3 % (15-55); TOTAL IRON BINDING CAPACITY 338 ug/dL (250-450); UIBC 327 ug/dL (111-343)
[2018-05-20 07:58] LABS: ALBUMIN 2.6 g/dl (3.4-5.0); ALK PHOS 105 U/L (45-117); ANION GAP 6 MMOL/L (8-16); BILIRUBIN,TOTAL 1.2 mg/dL (0.2-1); BLOOD UREA NITROGEN 24 mg/dL (7-18); CALCIUM 8.4 mg/dL (8.5-10.1); CHLORIDE 112 mmol/L (98-107); CO2 26 mmol/L (21-32); CREATININE 1.6 mg/dL (0.55-1.3); GLUCOSE,RANDOM 135 mg/dL (74-106); MAGNESIUM 2.4 mg/dL (1.8-2.4); POTASSIUM 4.2 mmol/L (3.5-5.1); SGOT/AST 17 U/L (15-37); SGPT/ALT 90 U/L (13-61); SODIUM 144 mmol/L (136-145); TOT PROT 6.1 g/dl (6.4-8.2)
[2018-05-20 08:20] LABS: BASO % 1.2 % (0-2.0); EOS % 2.6 % (0-4.5); HEMATOCRIT 20.1 % (35.4-49); LYMPH % 7.4 % (8-40); MCHC 29.8 g/dl (32.0-35.9); MEAN CELL VOLUME 67.2 fl (80-96); MEAN PLT VOLUME 9.9 fl (7.5-11.1); MONO % 14.5 % (3.8-10.2); NEUT % 74.3 % (42.8-82.8); PLATELET COUNT 164 K/MM3 (134-434); RBC 2.99 M/mm3 (4.00-5.60); RDW 33.3 % (11.9-15.9); WHITE BLOOD COUNT 5.2 K/mm3 (4.0-10.0)
[2018-05-20] MEDS: PANTOPRAZOLE SODIUM 40 MG VIAL IVPUSH SCH (11:00)
[2018-05-20] MEDS: CEFTRIAXONE 1 GM in DEXTROSE 5%-WATER - 50 ML IVPB SCH (11:00)
--- NOTE | 2018-05-20 11:32 | PN ---
Progress Note, Physician Chief Complaint: doing ok , family at the bedside denies any melena/ BRBR / hemetemesis - Current Medication List Current Medications: Active Medications Furosemide (Lasix Injection -) 20 mg IVPUSH ONCE ONE Stop: 05/20/18 16:01 Ceftriaxone Sodium 1 gm/ (Dextrose) 50 mls @ 100 mls/hr IVPB DAILY [facility] Last Admin: 05/19/18 09:12 Dose: 100 mls/hr Insulin Aspart (Novolog Vial Sliding Scale -) 1 vial SQ ACHS [facility]; Protocol Last Admin: 05/20/18 06:14 Dose: Not Given Pantoprazole Sodium (Protonix Iv) 40 mg IVPUSH DAILY [facility] Last Admin: 05/19/18 09:05 Dose: 40 mg - Objective Vital Signs: Vital Signs Temperature 97.8 F 05/20/18 08:48 Pulse Rate 88 05/20/18 08:48 Respiratory Rate 18 05/20/18 08:48 Blood Pressure 98/48 L 05/20/18 08:48 O2 Sat by Pulse Oximetry (%) 96 05/19/18 21:00 Constitutional: Yes: No Distress, Calm Eyes: Yes: WNL HENT: Yes: WNL Neck: Yes: WNL Cardiovascular: Yes: WNL, Regular Rate and Rhythm Respiratory: Yes: WNL, Regular, CTA Bilaterally Gastrointestinal: Yes: WNL, Normal Bowel Sounds, Soft Extremities: Yes: WNL Edema: No Labs: CBC, BMP 05/20/18 05:30 05/20/18 05:30 INR, PTT INR 2.28 (0.83-1.09) H 05/18/18 20:53 Problem List - Problems (1) Acute on chronic blood loss anemia Assessment/Plan: - clear liquid diet - hold a/c - stat INR ordered - transfuse to a hemoglobin of 8 or greater - PPI infusion - plan for diagnostic egd Monday - NPO midnight - goal INR for procedure less than or equal to 1.5 / HG 8 or greater . Plan of care & procedure risk and benfit explained in detail including but not limited to perforation bleeding sedation missed lesion & infection. 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
[2018-05-20] MEDS ORDERED: DEXTROSE 5%-WATER - 50 ML IVPB ONE (11:34)
[2018-05-20] MEDS ORDERED: cefTRIAXone SODIUM 1 GM VIAL ONE (11:34)
--- NOTE | 2018-05-20 13:41 | PN ---
Progress Note (short form) - Note Progress Note: Patient is comfortable with no acute distress, feels hungry. Vital Signs Temperature 97.8 F 05/20/18 08:48 Pulse Rate 88 05/20/18 08:48 Respiratory Rate 18 05/20/18 08:48 Blood Pressure 98/48 L repeat 120/64 05/20/18 08:48 O2 Sat by Pulse Oximetry (%) 96 05/19/18 21:00 GENERAL: Awake, alert with no acute distress. Pale HEAD: Normal with no signs of trauma. EYES: Pupils equal, round and reactive to light, EOMI , sclera anicteric. EARS, NOSE, THROAT: Moist mucous membranes. No evidence of jaundice NECK: Normal range of motion, supple without lymphadenopathy, JVD, or masses. LUNGS: decreased Breath sounds at basis. No wheezes, and no crackles. No accessory muscle use. HEART: Regular rate and rhythm, normal S1 and S2 without murmur, rub or gallop. Pacemaker ABDOMEN: Soft, NT, ND, normoactive bowel sounds, no guarding, no rebound, no masses. MUSCULOSKELETAL: Normal range of motion at all joints. No bony deformities or tenderness. EXTREMITIES: 2+ pulses, warm, well-perfused. No calf tenderness. No peripheral edema. NEUROLOGICAL: Cranial nerves II-XII intact. Normal speech. Muscle strength 5/5 UE and 5/5 LE PSYCHIATRIC: Cooperative. Good eye contact. Appropriate mood and affect. SKIN: Warm, dry, normal turgor, no rashes or lesions noted, normal capillary refill. CBCD WBC 5.2 K/mm3 (4.0-10.0) 05/20/18 05:30 RBC 2.99 M/mm3 (4.00-5.60) L 05/20/18 05:30 Hgb 6.0 GM/dL (11.7-16.9) L* 05/20/18 05:30 Hct 20.1 % (35.4-49) L 05/20/18 05:30 MCV 67.2 fl (80-96) L 05/20/18 05:30 MCHC 29.8 g/dl (32.0-35.9) L 05/20/18 05:30 RDW 33.3 % (11.9-15.9) H 05/20/18 05:30 Plt Count 164 K/MM3 (134-434) 05/20/18 05:30 MPV 9.9 fl (7.5-11.1) 05/20/18 05:30 CMP Sodium 144 mmol/L (136-145) 05/20/18 05:30 Potassium 4.2 mmol/L (3.5-5.1) 05/20/18 05:30 Chloride 112 mmol/L (98-107) H 05/20/18 05:30 Carbon Dioxide 26 mmol/L (21-32) 05/20/18 05:30 Anion Gap 6 MMOL/L (8-16) L 05/20/18 05:30 BUN 24 mg/dL (7-18) H 05/20/18 05:30 Creatinine 1.6 mg/dL (0.55-1.3) H 05/20/18 05:30 Creat Clearance w eGFR 41.49 (>60) 05/20/18 05:30 Random Glucose 135 mg/dL (74-106) H 05/20/18 05:30 Calcium 8.4 mg/dL (8.5-10.1) L 05/20/18 05:30 Total Bilirubin 1.2 mg/dL (0.2-1) H 05/20/18 05:30 AST 17 U/L (15-37) 05/20/18 05:30 ALT 90 U/L (13-61) H 05/20/18 05:30 Alkaline Phosphatase 105 U/L (45-117) 05/20/18 05:30 Total Protein 6.1 g/dl (6.4-8.2) L 05/20/18 05:30 Albumin 2.6 g/dl (3.4-5.0) L 05/20/18 05:30 CARDIAC ENZYMES Troponin I 0.02 ng/ml (0.00-0.05) 05/18/18 19:28 Current Medications Generic Name Dose Route Start Last Admin Trade Name Jonnieq PRN Reason Stop Dose Admin Furosemide 20 mg 05/20/18 16:00 Lasix Injection - IVPUSH 05/20/18 16:01 ONCE ONE Ceftriaxone Sodium 1 gm/ 50 mls @ 100 mls/hr 05/19/18 10:00 05/20/18 11:00 Dextrose IVPB 100 mls/hr DAILY [facility] Administration Insulin Aspart 1 vial 05/19/18 07:00 05/20/18 12:00 Novolog Vial Sliding Scale - SQ 2 units ACHS [facility] Administration Protocol Pantoprazole Sodium 40 mg 05/19/18 10:00 05/20/18 11:00 Protonix Iv IVPUSH 40 mg DAILY [facility] Administration Home Medications Medication Instructions Recorded Tamsulosin HCl 0.4 mg PO 1800 12/06/12 Amlodipine Besylate [Norvasc -] 10 mg PO DAILY 08/22/17 Aspirin 81 mg PO DAILY 08/22/17 Insulin Glargine,Hum.rec.anlog units SQ HS 08/23/17 [Lantus Solostar PEN -] Lisinopril [Prinivil -] 40 mg PO DAILY 08/23/17 Prednisolone 1% Ophthalmic [Pred 1 drop OS BID 08/23/17 Forte 1% -] Sitagliptin Phosphate [Januvia] 100 mg PO DAILY 08/23/17 Tadalafil [Cialis] 20 mg PO ASDIR 08/23/17 Timolol 0.5% [Timoptic 0.5%] 1 drop OS BID 08/23/17 Apixaban [Eliquis] 5 mg PO BID 03/04/18 Furosemide [Lasix -] 40 mg PO DAILY #30 tablet 03/04/18 Nystatin Cream [Mycostatin Cream -] 1 applic TP BID #14 applic 03/04/18 Urine Test Results Urine Color Yellow 05/18/18 19: Urine Appearance Clear 05/18/18 19:28 Urine pH 5.0 (5.0-8.0) D 05/18/18 19:28 Ur Specific [place] 1.013 (1.010-1.035) 05/18/18 19:28 Urine Protein Negative (NEGATIVE) 05/18/18 19:28 Urine Glucose (UA) Negative (NEGATIVE) 05/18/18 19:28 Urine Ketones Negative (NEGATIVE) 05/18/18 19:28 Urine Blood Negative (NEGATIVE) 05/18/18 19: Urine Nitrite Negative (NEGATIVE) 05/18/18 19:28 Urine Bilirubin Negative (<2.0 mg/dL) 05/18/18 19:28 Ur Leukocyte Esterase Trace (NEGATIVE) 05/18/18 19:28 Ur Epithelial Cells Rare /HPF (FEW) 05/18/18 19:28 Urine Mucus Rare 05/18/18 19:28 Echo 03/13: EF: 50%, LV systolic fxn low, RV systolic fxn normal, LA mildly dilated, s/p lasix 20mg post transfusion Assessment and plan: Patient is a 82 y/o male with a history of CHF, CAD s/p CABG, DM, HTN, and BPH who presents for weakness. # Acute anemia ( Iron deficiency anemia) due to Acute blood loss cannot r/o malignancy , Eliquis is on hold, iron panel studies. patient received total of 5 units, will get 1 more unit later today, Lasix 20mg IV x 1 dose. 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 - New Patient This patient is new to me today: No - Critical Care Critical Care patient: No - Discharge Referral Referred to [facility] Med P.C.: No
[2018-05-20] MEDS: FUROSEMIDE 40 MG/4 ML INJECTABLE VIAL IVPUSH ONE ×2 (14:26→16:13)
[2018-05-20] MEDS ORDERED: FUROSEMIDE 40 MG/4 ML INJECTABLE VIAL IVPUSH ONE (16:00)
[2018-05-20 20:35] LABS: INR 1.75 (0.83-1.09); PROTHROMBIN TIME (PATIENT) 20.8 SEC (9.7-13.0)
[2018-05-20 21:33] LABS: HEMATOCRIT 26.4 % (35.4-49); HEMOGLOBIN 8.8 GM/dL (11.7-16.9); MCH 23.2 pg (25.7-33.7); MCHC 33.2 g/dl (32.0-35.9); MEAN CELL VOLUME 69.8 fl (80-96); MEAN PLT VOLUME 9.1 fl (7.5-11.1); PLATELET COUNT 167 K/MM3 (134-434); RBC 3.78 M/mm3 (4.00-5.60); RDW 32.1 % (11.9-15.9); WHITE BLOOD COUNT 5.8 K/mm3 (4.0-10.0)
[2018-05-21] MEDS: INSULIN SLIDING SCALE (NOVOLOG) 1 VIAL SQ SCH ×4 (06:29→22:08)
[2018-05-21 07:25] LABS: BASO % 1.3 % (0-2.0); EOS % 3.4 % (0-4.5); HEMATOCRIT 25.9 % (35.4-49); LYMPH % 8.9 % (8-40); MCH 21.7 pg (25.7-33.7); MCHC 30.8 g/dl (32.0-35.9); MEAN CELL VOLUME 70.5 fl (80-96); MEAN PLT VOLUME 9.3 fl (7.5-11.1); MONO % 18.4 % (3.8-10.2); PLATELET COUNT 150 K/MM3 (134-434); RBC 3.67 M/mm3 (4.00-5.60); RDW 32.1 % (11.9-15.9); WHITE BLOOD COUNT 5.7 K/mm3 (4.0-10.0)
[2018-05-21 07:28] LABS: ALBUMIN 2.3 g/dl (3.4-5.0); ALK PHOS 89 U/L (45-117); ANION GAP 8 MMOL/L (8-16); BILIRUBIN,TOTAL 1.1 mg/dL (0.2-1); BLOOD UREA NITROGEN 19 mg/dL (7-18); CALCIUM 8.4 mg/dL (8.5-10.1); CHLORIDE 112 mmol/L (98-107); CO2 25 mmol/L (21-32); CREATININE 1.6 mg/dL (0.55-1.3); GLUCOSE,RANDOM 108 mg/dL (74-106); POTASSIUM 3.8 mmol/L (3.5-5.1); SGOT/AST 19 U/L (15-37); SGPT/ALT 65 U/L (13-61); SODIUM 145 mmol/L (136-145); TOT PROT 5.7 g/dl (6.4-8.2)
[2018-05-21 07:35] LABS: INR 1.79 (0.83-1.09); PROTHROMBIN TIME (PATIENT) 21.2 SEC (9.7-13.0)
--- NOTE | 2018-05-21 09:10 | PN ---
Physical Exam: SUBJECTIVE: Patient is a 82 y/o male with a history of CHF, CAD s/p CABG, DM, HTN, and BPH who is admitted for anemia. Patient reports he is feeling better, but is still a little dizzy. Patient has no other complaints. OBJECTIVE: Vital Signs Temperature 97.8 F 05/21/18 08:29 Pulse Rate 68 05/21/18 08:29 Respiratory Rate 16 05/21/18 08:45 Blood Pressure 113/58 L 05/21/18 08:29 O2 Sat by Pulse Oximetry (%) 93 L 05/21/18 08:45 GENERAL: Awake, alert, and fully oriented, in no acute distress. Pale HEAD: Normal with no signs of trauma. NECK: Normal range of motion, supple without lymphadenopathy, JVD, or masses. LUNGS: Breath sounds equal, clear to auscultation bilaterally. No wheezes, and no crackles. No accessory muscle use. HEART: Regular rate and rhythm, normal S1 and S2 without murmur, rub or gallop. Pacemaker ABDOMEN: Soft, nontender, not distended, normoactive bowel sounds, no guarding, no rebound, no masses. Tympanic to percussion MUSCULOSKELETAL: Normal range of motion at all joints. No bony deformities or tenderness. LOWER EXTREMITIES: 2+ pulses, warm, well-perfused. No calf tenderness. No peripheral edema. RECTAL: no internal or external hemorrhoids, no stool in the vault, no blood per rectum NEUROLOGICAL: Cranial nerves II-XII intact. Normal speech. Muscle strength 5/5 UE and 5/5 LE SKIN: Warm, dry, normal turgor, no rashes or lesions noted, normal capillary refill. CBC, BMP 05/21/18 05:50 05/21/18 05:50 Active Medications Ceftriaxone Sodium 1 gm/ (Dextrose) 50 mls @ 100 mls/hr IVPB DAILY [facility] Last Admin: 05/20/18 11:00 Dose: 100 mls/hr Insulin Aspart (Novolog Vial Sliding Scale -) 1 vial SQ ACHS [facility]; Protocol Last Admin: 05/21/18 06:29 Dose: Not Given Pantoprazole Sodium (Protonix Iv) 40 mg IVPUSH DAILY [facility] Last Admin: 05/20/18 11:00 Dose: 40 mg ASSESSMENT/PLAN: Patient is a 82 y/o male with a history of CHF, CAD s/p CABG, DM, HTN, and BPH who presents for weakness. 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
[2018-05-21] MEDS ORDERED: cefTRIAXone SODIUM 1 GM VIAL ONE (10:00)
[2018-05-21] MEDS ORDERED: DEXTROSE 5%-WATER - 50 ML IVPB ONE (10:01)
[2018-05-21] MEDS ORDERED: PHYTONADIONE 10 MG/1 ML AMP SQ ONE (10:08)
--- NOTE | 2018-05-21 10:15 | CON.CARD ---
Consult Consult Specialty:: Cardiology - History of Present Illness History of Present Illness: 82 yo M with a hx of CHF, CAD s/p CABG x3 in 2005, DM, HTN, and BPH presents to the emergency department with generalized weakness that has been ongoing for 1.5 weeks. States he has no energy and has had shaking throughout. He has been having poor appetite and denies the following: nausea, vomiting, visual changes , headaches, chest pain, SOB, abdominal pain, hematochezia, hematuria, dysuria, melena, and leg pain/swelling. His last colonoscopy was "over 10 years ago" and was considered normal. Denies fever and chills. Pmhx: Refer to above Shx: CABG Meds: flomax, eliquis, lisinopril, aspirin 81 mg, amlodipine, furosemide, insulin, januvia. Allergies: NKDA Social: Denies tobacco, alcohol, and substance abuse. 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 DDD DM HTN Negative MIBI stress test December 2012 , September 2015 severe mitral regurgitation May 2017 CHF Diastolic Noncompliance Atrial Fibrillation - History Source History Provided By: Patient, Medical Record - Past Medical History Cardio/Vascular: Yes: AFIB, CHF, HTN, Other (s/AVR) Endocrine: Yes: Diabetes Mellitus - Alcohol/Substance Use Hx Alcohol Use: No - Smoking History Smoking history: Smoker current status UNK Have you smoked in the past 12 months: No Aproximately how many cigarettes per day: 0 Home Medications - Allergies Allergies/Adverse Reactions: Allergies Allergy/AdvReac Type Severity Reaction Status Date / Time No Known Drug Allergies Allergy Verified 05/18/18 18:41 - Home Medications Home Medications: Ambulatory Orders Tamsulosin HCl 0.4 mg PO 1800 12/06/12 Amlodipine Besylate [Norvasc -] 10 mg PO DAILY 08/22/17 Aspirin 81 mg PO DAILY 08/22/17 Insulin Glargine,Hum.rec.anlog [Lantus Solostar PEN -] units SQ HS 08/23/17 Lisinopril [Prinivil -] 40 mg PO DAILY 08/23/17 Prednisolone 1% Ophthalmic [Pred Forte 1% -] 1 drop OS BID 08/23/17 Sitagliptin Phosphate [Januvia] 100 mg PO DAILY 08/23/17 Tadalafil [Cialis] 20 mg PO ASDIR 08/23/17 Timolol 0.5% [Timoptic 0.5%] 1 drop OS BID 08/23/17 Apixaban [Eliquis] 5 mg PO BID 03/04/18 Furosemide [Lasix -] 40 mg PO DAILY #30 tablet 03/04/18 Nystatin Cream [Mycostatin Cream -] 1 applic TP BID #14 applic 03/04/18 Review of Systems - Review of Systems Constitutional: reports: Weakness Eyes: reports: No Symptoms HENT: reports: No Symptoms Neck: reports: No Symptoms Cardiovascular: reports: No Symptoms Gastrointestinal: reports: No Symptoms Genitourinary: reports: No Symptoms Breasts: reports: No Symptoms Reported Musculoskeletal: reports: No Symptoms Integumentary: reports: No Symptoms Neurological: reports: No Symptoms Endocrine: reports: No Symptoms Hematology/Lymphatic: reports: No Symptoms Psychiatric: reports: No Symptoms Vital Signs: Vital Signs Temperature 97.8 F 05/21/18 08:29 Pulse Rate 68 05/21/18 08:29 Respiratory Rate 16 05/21/18 08:45 Blood Pressure 113/58 L 05/21/18 08:29 O2 Sat by Pulse Oximetry (%) 93 L 05/21/18 08:45 Constitutional: Yes: Well Nourished, No Distress, Calm Eyes: Yes: WNL, Conjunctiva Clear, EOM Intact HENT: Yes: WNL, Atraumatic, Normocephalic Neck: Yes: WNL, Supple, Trachea Midline Respiratory: Yes: WNL, Regular, CTA Bilaterally Gastrointestinal: Yes: WNL, Normal Bowel Sounds Renal/: Yes: WNL Cardiovascular: Yes: Pulse Irregular Heart Sounds: Yes: S1, S2 Musculoskeletal: Yes: WNL Extremities: Yes: WNL Integumentary: Yes: WNL Neurological: Yes: WNL, Alert, Oriented ...Motor Strength: WNL Psychiatric: Yes: WNL, Alert, Oriented - Other Data Labs, Other Data: CBC, BMP 05/21/18 05:50 05/21/18 05:50 INR, PTT INR 1.79 (0.83-1.09) H 05/21/18 06:10 Laboratory Tests 05/18/18 05/18/18 05/18/18 19:28 19:28 19:28 WBC 4.1 RBC 2.22 L Hgb 3.7 L* Hct 13.0 L MCV 58.6 L D MCH 16.7 L D MCHC 28.6 L RDW 24.7 H Plt Count 217 D MPV 10.4 Absolute Neuts (auto) 2.1 Total Counted 100 Neutrophils % 51.1 D Neutrophils % (Manual) 54.0 Band Neutrophils % 1.0 Lymphocytes % 22.2 D Lymphocytes % (Manual) 28.0 Monocytes % 22.1 H Monocytes % (Manual) 10 Eosinophils % 3.2 Eosinophils % (Manual) 7.0 H Basophils % 1.4 Nucleated RBC % 0 Hypochromia 3+ Platelet Estimate Adequate Platelet Comment Large platelets Polychromasia 1+ Poikilocytosis 1+ Anisocytosis 2+ Microcytosis 1+ Macrocytosis 3+ Spherocytes 1+ PT with INR INR PTT (Actin FS) VBG pH 7.35 POC VBG pCO2 44.7 POC VBG pO2 29.7 Mixed VBG HCO3 24.2 Sodium Potassium Chloride Carbon Dioxide Anion Gap BUN Creatinine Creat Clearance w eGFR POC Glucometer Random Glucose Lactic Acid Calcium Phosphorus Magnesium Iron TIBC Iron Saturation Transferrin Ferritin Total Bilirubin AST ALT Alkaline Phosphatase Troponin I B-Natriuretic Peptide Total Protein Albumin Urine Color Yellow Urine Appearance Clear Urine pH 5.0 D Ur Specific [place] 1.013 Urine Protein Negative Urine Glucose (UA) Negative Urine Ketones Negative Urine Blood Negative Urine Nitrite Negative Urine Bilirubin Negative Urine Urobilinogen Negative Ur Leukocyte Esterase Trace Urine WBC (Auto) 16 Urine RBC (Auto) <1 Ur Epithelial Cells Rare Hyaline Casts 4 Urine Mucus Rare Stool Occult Blood Anti-A Titer Blood Type Antibody Screen Crossmatch 05/18/18 05/18/18 05/18/18 19:28 19:28 20:53 WBC RBC Hgb Hct MCV MCH MCHC RDW Plt Count MPV Absolute Neuts (auto) Total Counted Neutrophils % Neutrophils % (Manual) Band Neutrophils % Lymphocytes % Lymphocytes % (Manual) Monocytes % Monocytes % (Manual) Eosinophils % Eosinophils % (Manual) Basophils % Nucleated RBC % Hypochromia Platelet Estimate Platelet Comment Polychromasia Poikilocytosis Anisocytosis Microcytosis Macrocytosis Spherocytes PT with INR INR PTT (Actin FS) VBG pH POC VBG pCO2 POC VBG pO2 Mixed VBG HCO3 Sodium 141 Potassium 4.9 Chloride 107 Carbon Dioxide 24 Anion Gap 10 BUN 38 H Creatinine 1.9 H Creat Clearance w eGFR 34.02 POC Glucometer Random Glucose 249 H Lactic Acid 2.2 H* Calcium 8.2 L Phosphorus Magnesium 2.3 Iron TIBC Iron Saturation Transferrin Ferritin 7.5 L Total Bilirubin 0.6 AST 33 ALT 135 H Alkaline Phosphatase 123 H Troponin I 0.02 B-Natriuretic Peptide 1068.2 H Total Protein 6.5 Albumin 2.8 L Urine Color Urine Appearance Urine pH Ur Specific [place] Urine Protein Urine Glucose (UA) Urine Ketones Urine Blood Urine Nitrite Urine Bilirubin Urine Urobilinogen Ur Leukocyte Esterase Urine WBC (Auto) Urine RBC (Auto) Ur Epithelial Cells Hyaline Casts Urine Mucus Stool Occult Blood Anti-A Titer Blood Type B POSITIVE Antibody Screen Negative Crossmatch 05/18/18 05/18/18 05/18/18 20:53 21:01 21:01 WBC RBC Hgb Hct MCV MCH MCHC RDW Plt Count MPV Absolute Neuts (auto) Total Counted Neutrophils % Neutrophils % (Manual) Band Neutrophils % Lymphocytes % Lymphocytes % (Manual) Monocytes % Monocytes % (Manual) Eosinophils % Eosinophils % (Manual) Basophils % Nucleated RBC % Hypochromia Platelet Estimate Platelet Comment Polychromasia Poikilocytosis Anisocytosis Microcytosis Macrocytosis Spherocytes PT with INR 27.10 H INR 2.28 H PTT (Actin FS) 27.9 VBG pH POC VBG pCO2 POC VBG pO2 Mixed VBG HCO3 Sodium Potassium Chloride Carbon Dioxide Anion Gap BUN Creatinine Creat Clearance w eGFR POC Glucometer Random Glucose Lactic Acid Calcium Phosphorus Magnesium Iron TIBC Iron Saturation Transferrin Ferritin Total Bilirubin AST ALT Alkaline Phosphatase Troponin I B-Natriuretic Peptide Total Protein Albumin Urine Color Urine Appearance Urine pH Ur Specific [place] Urine Protein Urine Glucose (UA) Urine Ketones Urine Blood Urine Nitrite Urine Bilirubin Urine Urobilinogen Ur Leukocyte Esterase Urine WBC (Auto) Urine RBC (Auto) Ur Epithelial Cells Hyaline Casts Urine Mucus Stool Occult Blood Negative Anti-A Titer Cancelled Blood Type Cancelled Antibody Screen Crossmatch See Detail 05/18/18 05/19/18 05/19/18 22:30 06:23 09:30 WBC RBC Hgb Hct MCV MCH MCHC RDW Plt Count MPV Absolute Neuts (auto) Total Counted Neutrophils % Neutrophils % (Manual) Band Neutrophils % Lymphocytes % Lymphocytes % (Manual) Monocytes % Monocytes % (Manual) Eosinophils % Eosinophils % (Manual) Basophils % Nucleated RBC % Hypochromia Platelet Estimate Platelet Comment Polychromasia Poikilocytosis Anisocytosis Microcytosis Macrocytosis Spherocytes PT with INR INR PTT (Actin FS) VBG pH POC VBG pCO2 POC VBG pO2 Mixed VBG HCO3 Sodium Potassium Chloride Carbon Dioxide Anion Gap BUN Creatinine Creat Clearance w eGFR POC Glucometer 254 Random Glucose Lactic Acid 1.4 Calcium Phosphorus Magnesium Iron 11 L TIBC 338 Iron Saturation 3 L Transferrin 275 Ferritin Total Bilirubin AST ALT Alkaline Phosphatase Troponin I B-Natriuretic Peptide Total Protein Albumin Urine Color Urine Appearance Urine pH Ur Specific [place] Urine Protein Urine Glucose (UA) Urine Ketones Urine Blood Urine Nitrite Urine Bilirubin Urine Urobilinogen Ur Leukocyte Esterase Urine WBC (Auto) Urine RBC (Auto) Ur Epithelial Cells Hyaline Casts Urine Mucus Stool Occult Blood Anti-A Titer Blood Type Antibody Screen Crossmatch 05/19/18 05/19/18 05/19/18 11:37 16:55 19:50 WBC 5.4 RBC 2.97 L Hgb 6.2 L* Hct 19.6 L D MCV 65.8 L MCH 20.9 L D MCHC 31.8 L RDW 33.6 H Plt Count 175 MPV 9.4 Absolute Neuts (auto) 4.3 Total Counted Neutrophils % 79.8 D Neutrophils % (Manual) Band Neutrophils % Lymphocytes % 4.9 L D Lymphocytes % (Manual) Monocytes % 11.2 H Monocytes % (Manual) Eosinophils % 2.8 Eosinophils % (Manual) Basophils % 1.3 Nucleated RBC % 1 H Hypochromia Platelet Estimate Platelet Comment Polychromasia Poikilocytosis Anisocytosis Microcytosis Macrocytosis Spherocytes PT with INR INR PTT (Actin FS) VBG pH POC VBG pCO2 POC VBG pO2 Mixed VBG HCO3 Sodium Potassium Chloride Carbon Dioxide Anion Gap BUN Creatinine Creat Clearance w eGFR POC Glucometer 227 179 Random Glucose Lactic Acid Calcium Phosphorus Magnesium Iron TIBC Iron Saturation Transferrin Ferritin Total Bilirubin AST ALT Alkaline Phosphatase Troponin I B-Natriuretic Peptide Total Protein Albumin Urine Color Urine Appearance Urine pH Ur Specific [place] Urine Protein Urine Glucose (UA) Urine Ketones Urine Blood Urine Nitrite Urine Bilirubin Urine Urobilinogen Ur Leukocyte Esterase Urine WBC (Auto) Urine RBC (Auto) Ur Epithelial Cells Hyaline Casts Urine Mucus Stool Occult Blood Anti-A Titer Blood Type Antibody Screen Crossmatch 05/19/18 05/20/18 05/20/18 21:20 05:30 05:30 WBC 5.2 RBC 2.99 L Hgb 6.0 L* Hct 20.1 L MCV 67.2 L MCH 20.0 L MCHC 29.8 L RDW 33.3 H Plt Count 164 MPV 9.9 Absolute Neuts (auto) 3.8 Total Counted Neutrophils % 74.3 Neutrophils % (Manual) Band Neutrophils % Lymphocytes % 7.4 L D Lymphocytes % (Manual) Monocytes % 14.5 H Monocytes % (Manual) Eosinophils % 2.6 Eosinophils % (Manual) Basophils % 1.2 Nucleated RBC % 2 H Hypochromia Platelet Estimate Platelet Comment Polychromasia Poikilocytosis Anisocytosis Microcytosis Macrocytosis Spherocytes PT with INR INR PTT (Actin FS) VBG pH POC VBG pCO2 POC VBG pO2 Mixed VBG HCO3 Sodium 144 Potassium 4.2 Chloride 112 H Carbon Dioxide 26 Anion Gap 6 L BUN 24 H Creatinine 1.6 H Creat Clearance w eGFR 41.49 POC Glucometer 177 Random Glucose 135 H Lactic Acid Calcium 8.4 L Phosphorus 3.0 Magnesium 2.4 Iron TIBC Iron Saturation Transferrin Ferritin Total Bilirubin 1.2 H AST 17 ALT 90 H Alkaline Phosphatase 105 Troponin I B-Natriuretic Peptide Total Protein 6.1 L Albumin 2.6 L Urine Color Urine Appearance Urine pH Ur Specific [place] Urine Protein Urine Glucose (UA) Urine Ketones Urine Blood Urine Nitrite Urine Bilirubin Urine Urobilinogen Ur Leukocyte Esterase Urine WBC (Auto) Urine RBC (Auto) Ur Epithelial Cells Hyaline Casts Urine Mucus Stool Occult Blood Anti-A Titer Blood Type Antibody Screen Crossmatch 05/20/18 05/20/18 05/20/18 05:44 12:56 16:00 WBC RBC Hgb Hct MCV MCH MCHC RDW Plt Count MPV Absolute Neuts (auto) Total Counted Neutrophils % Neutrophils % (Manual) Band Neutrophils % Lymphocytes % Lymphocytes % (Manual) Monocytes % Monocytes % (Manual) Eosinophils % Eosinophils % (Manual) Basophils % Nucleated RBC % Hypochromia Platelet Estimate Platelet Comment Polychromasia Poikilocytosis Anisocytosis Microcytosis Macrocytosis Spherocytes PT with INR INR PTT (Actin FS) VBG pH POC VBG pCO2 POC VBG pO2 Mixed VBG HCO3 Sodium Potassium Chloride Carbon Dioxide Anion Gap BUN Creatinine Creat Clearance w eGFR POC Glucometer 158 151 145 Random Glucose Lactic Acid Calcium Phosphorus Magnesium Iron TIBC Iron Saturation Transferrin Ferritin Total Bilirubin AST ALT Alkaline Phosphatase Troponin I B-Natriuretic Peptide Total Protein Albumin Urine Color Urine Appearance Urine pH Ur Specific [place] Urine Protein Urine Glucose (UA) Urine Ketones Urine Blood Urine Nitrite Urine Bilirubin Urine Urobilinogen Ur Leukocyte Esterase Urine WBC (Auto) Urine RBC (Auto) Ur Epithelial Cells Hyaline Casts Urine Mucus Stool Occult Blood Anti-A Titer Blood Type Antibody Screen Crossmatch 05/20/18 05/20/18 05/20/18 18:50 21:05 21:26 WBC 5.8 RBC 3.78 L Hgb 8.8 L Hct 26.4 L D MCV 69.8 L MCH 23.2 L D MCHC 33.2 RDW 32.1 H Plt Count 167 MPV 9.1 Absolute Neuts (auto) Total Counted Neutrophils % Neutrophils % (Manual) Band Neutrophils % Lymphocytes % Lymphocytes % (Manual) Monocytes % Monocytes % (Manual) Eosinophils % Eosinophils % (Manual) Basophils % Nucleated RBC % Hypochromia Platelet Estimate Platelet Comment Polychromasia Poikilocytosis Anisocytosis Microcytosis Macrocytosis Spherocytes PT with INR 20.80 H INR 1.75 H PTT (Actin FS) VBG pH POC VBG pCO2 POC VBG pO2 Mixed VBG HCO3 Sodium Potassium Chloride Carbon Dioxide Anion Gap BUN Creatinine Creat Clearance w eGFR POC Glucometer 141 Random Glucose Lactic Acid Calcium Phosphorus Magnesium Iron TIBC Iron Saturation Transferrin Ferritin Total Bilirubin AST ALT Alkaline Phosphatase Troponin I B-Natriuretic Peptide Total Protein Albumin Urine Color Urine Appearance Urine pH Ur Specific [place] Urine Protein Urine Glucose (UA) Urine Ketones Urine Blood Urine Nitrite Urine Bilirubin Urine Urobilinogen Ur Leukocyte Esterase Urine WBC (Auto) Urine RBC (Auto) Ur Epithelial Cells Hyaline Casts Urine Mucus Stool Occult Blood Anti-A Titer Blood Type Antibody Screen Crossmatch 05/21/18 05/21/18 05/21/18 05:50 05:50 05:58 WBC 5.7 RBC 3.67 L Hgb 8.0 L Hct 25.9 L MCV 70.5 L MCH 21.7 L MCHC 30.8 L RDW 32.1 H Plt Count 150 MPV 9.3 Absolute Neuts (auto) 3.9 Total Counted Neutrophils % 68.0 Neutrophils % (Manual) Band Neutrophils % Lymphocytes % 8.9 D Lymphocytes % (Manual) Monocytes % 18.4 H Monocytes % (Manual) Eosinophils % 3.4 Eosinophils % (Manual) Basophils % 1.3 Nucleated RBC % 3 H Hypochromia Platelet Estimate Platelet Comment Polychromasia Poikilocytosis Anisocytosis Microcytosis Macrocytosis Spherocytes PT with INR INR PTT (Actin FS) VBG pH POC VBG pCO2 POC VBG pO2 Mixed VBG HCO3 Sodium 145 Potassium 3.8 Chloride 112 H Carbon Dioxide 25 Anion Gap 8 BUN 19 H Creatinine 1.6 H Creat Clearance w eGFR 41.49 POC Glucometer 123 Random Glucose 108 H Lactic Acid Calcium 8.4 L Phosphorus Magnesium Iron TIBC Iron Saturation Transferrin Ferritin Total Bilirubin 1.1 H AST 19 ALT 65 H Alkaline Phosphatase 89 Troponin I B-Natriuretic Peptide Total Protein 5.7 L Albumin 2.3 L Urine Color Urine Appearance Urine pH Ur Specific [place] Urine Protein Urine Glucose (UA) Urine Ketones Urine Blood Urine Nitrite Urine Bilirubin Urine Urobilinogen Ur Leukocyte Esterase Urine WBC (Auto) Urine RBC (Auto) Ur Epithelial Cells Hyaline Casts Urine Mucus Stool Occult Blood Anti-A Titer Blood Type Antibody Screen Crossmatch 05/21/18 06:10 WBC RBC Hgb Hct MCV MCH MCHC RDW Plt Count MPV Absolute Neuts (auto) Total Counted Neutrophils % Neutrophils % (Manual) Band Neutrophils % Lymphocytes % Lymphocytes % (Manual) Monocytes % Monocytes % (Manual) Eosinophils % Eosinophils % (Manual) Basophils % Nucleated RBC % Hypochromia Platelet Estimate Platelet Comment Polychromasia Poikilocytosis Anisocytosis Microcytosis Macrocytosis Spherocytes PT with INR 21.20 H INR 1.79 H PTT (Actin FS) VBG pH POC VBG pCO2 POC VBG pO2 Mixed VBG HCO3 Sodium Potassium Chloride Carbon Dioxide Anion Gap BUN Creatinine Creat Clearance w eGFR POC Glucometer Random Glucose Lactic Acid Calcium Phosphorus Magnesium Iron TIBC Iron Saturation Transferrin Ferritin Total Bilirubin AST ALT Alkaline Phosphatase Troponin I B-Natriuretic Peptide Total Protein Albumin Urine Color Urine Appearance Urine pH Ur Specific [place] Urine Protein Urine Glucose (UA) Urine Ketones Urine Blood Urine Nitrite Urine Bilirubin Urine Urobilinogen Ur Leukocyte Esterase Urine WBC (Auto) Urine RBC (Auto) Ur Epithelial Cells Hyaline Casts Urine Mucus Stool Occult Blood Anti-A Titer Blood Type Antibody Screen Crossmatch Imaging - Results Chest X-ray: Image Reviewed (sp [facility] no i/e) EKG: Image Reviewed (af vpaced) Assessment/Plan severe anemia ? GI bleed? AVR 23mm magna bioprostetic aortic valve dr. 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
--- NOTE | 2018-05-21 10:20 | PN ---
Progress Note (short form) - Note Progress Note: INR cookie to 1.79 today. No active bleedin reported by nursing and vitals have remained stable. Georgina held x 3 days ago. Ordered Vitamin K SC 10mg x 1 and will plan for EGD 05/22. Repeat CBC / coags in AM. NPO after midnight except meds. Clear liquids for now.
[2018-05-21] MEDS: CEFTRIAXONE 1 GM in DEXTROSE 5%-WATER - 50 ML IVPB SCH (10:22)
[2018-05-21] MEDS: PANTOPRAZOLE SODIUM 40 MG VIAL IVPUSH SCH (10:23)
[2018-05-21 14:32] LABS: HEMATOCRIT 26.2 % (35.4-49); MCH 21.6 pg (25.7-33.7); MCHC 30.4 g/dl (32.0-35.9); PLATELET COUNT 150 K/MM3 (134-434); RBC 3.69 M/mm3 (4.00-5.60); RDW 32.3 % (11.9-15.9); WHITE BLOOD COUNT 6.2 K/mm3 (4.0-10.0)
--- NOTE | 2018-05-21 20:22 | PN ---
Teaching Attending Note Name of Resident: Nydia Latrell ATTENDING PHYSICIAN STATEMENT I saw and evaluated the patient. I reviewed the resident's note and discussed the case with the resident. I agree with the resident's findings and plan as documented. SUBJECTIVE: Patient feels better s/p blood transfusions. No nausea or vomiting. OBJECTIVE: Vital Signs Temperature 98.6 F 05/21/18 18:00 Pulse Rate 77 05/21/18 18:00 Respiratory Rate 16 05/21/18 18:00 Blood Pressure 110/50 L 05/21/18 18:00 O2 Sat by Pulse Oximetry (%) 93 L 05/21/18 08:45 GENERAL: Awake, alert with no acute distress. HEAD: Normal with no signs of trauma. EYES: Pupils equal, round and reactive to light, EOMI , sclera anicteric. EARS, NOSE, THROAT: Moist mucous membranes. No evidence of jaundice NECK: Normal range of motion, supple without lymphadenopathy, JVD, or masses. LUNGS: decreased Breath sounds at basis. No wheezes, and no crackles. No accessory muscle use. HEART: Regular rate and rhythm, normal S1 and S2 without murmur, rub or gallop. Pacemaker ABDOMEN: Soft, NT, ND, normoactive bowel sounds, no guarding, no rebound, no masses. EXTREMITIES: 2+ pulses, warm, well-perfused. No calf tenderness. No peripheral edema. NEUROLOGICAL: Cranial nerves II-XII intact. Normal speech. Muscle strength 5/5 UE and 5/5 LE PSYCHIATRIC: Cooperative. Good eye contact. Appropriate mood and affect. SKIN: Warm, dry, normal turgor, no rashes or lesions noted, normal capillary refill. CBCD WBC 6.2 K/mm3 (4.0-10.0) 05/21/18 14:05 RBC 3.69 M/mm3 (4.00-5.60) L 05/21/18 14:05 Hgb 8.0 GM/dL (11.7-16.9) L 05/21/18 14:05 Hct 26.2 % (35.4-49) L 05/21/18 14:05 MCV 71.0 fl (80-96) L 05/21/18 14:05 MCHC 30.4 g/dl (32.0-35.9) L 05/21/18 14:05 RDW 32.3 % (11.9-15.9) H 05/21/18 14:05 Plt Count 150 K/MM3 (134-434) 05/21/18 14:05 MPV 9.0 fl (7.5-11.1) 05/21/18 14:05 CMP Sodium 145 mmol/L (136-145) 05/21/18 05:50 Potassium 3.8 mmol/L (3.5-5.1) 05/21/18 05:50 Chloride 112 mmol/L (98-107) H 05/21/18 05:50 Carbon Dioxide 25 mmol/L (21-32) 05/21/18 05:50 Anion Gap 8 MMOL/L (8-16) 05/21/18 05:50 BUN 19 mg/dL (7-18) H 05/21/18 05:50 Creatinine 1.6 mg/dL (0.55-1.3) H 05/21/18 05:50 Creat Clearance w eGFR 41.49 (>60) 05/21/18 05:50 Random Glucose 108 mg/dL (74-106) H 05/21/18 05:50 Calcium 8.4 mg/dL (8.5-10.1) L 05/21/18 05:50 Total Bilirubin 1.1 mg/dL (0.2-1) H 05/21/18 05:50 AST 19 U/L (15-37) 05/21/18 05:50 ALT 65 U/L (13-61) H 05/21/18 05:50 Alkaline Phosphatase 89 U/L (45-117) 05/21/18 05:50 Total Protein 5.7 g/dl (6.4-8.2) L 05/21/18 05:50 Albumin 2.3 g/dl (3.4-5.0) L 05/21/18 05:50 CARDIAC ENZYMES Troponin I 0.02 ng/ml (0.00-0.05) 05/18/18 19:28 Current Medications Generic Name Dose Route Start Last Admin Trade Name Freq PRN Reason Stop Dose Admin Ceftriaxone Sodium 1 gm/ 50 mls @ 100 mls/hr 05/19/18 10:00 05/21/18 10:22 Dextrose IVPB 100 mls/hr DAILY HARPER Administration Insulin Aspart 1 vial 05/19/18 07:00 05/21/18 16:35 Novolog Vial Sliding Scale - SQ 2 units ACHS HARPER Administration Protocol Pantoprazole Sodium 40 mg 05/19/18 10:00 05/21/18 10:23 Protonix Iv IVPUSH 40 mg DAILY HARPER Administration Home Medications Medication Instructions Recorded Tamsulosin HCl 0.4 mg PO 1800 12/06/12 Amlodipine Besylate [Norvasc -] 10 mg PO DAILY 08/22/17 Aspirin 81 mg PO DAILY 08/22/17 Insulin Glargine,Hum.rec.anlog 15 units SQ HS 08/23/17 [Lantus Solostar PEN -] Lisinopril [Prinivil -] 40 mg PO DAILY 08/23/17 Prednisolone 1% Ophthalmic [Pred 1 drop OS BID 08/23/17 Forte 1% -] Sitagliptin Phosphate [Januvia] 100 mg PO DAILY 08/23/17 Tadalafil [Cialis] 20 mg PO ASDIR 08/23/17 Timolol 0.5% [Timoptic 0.5%] 1 drop OS BID 08/23/17 Apixaban [Eliquis] 5 mg PO BID 03/04/18 Furosemide [Lasix -] 40 mg PO DAILY #30 tablet 03/04/18 Nystatin Cream [Mycostatin Cream -] 1 applic TP BID #14 applic 03/04/18 Echo 03/13: EF: 50%, LV systolic fxn low, RV systolic fxn normal, LA mildly dilated, s/p lasix 20mg post transfusion Assessment and plan: Patient is a 82 y/o male with a history of CHF, CAD s/p CABG, DM, HTN, and BPH who presents for weakness. # Acute anemia due to Acute blood loss cannot r/o malignancy , Eliquis is on hold, Lasix 20mg IV x 1 dose in between transfusions. #UTI follow Ucx On Rocephin 1gm #CHAIM likely prerenal, improving 2.2--> 1.6 today #T2DM: SS with coverage #CHF Echo 03/13: EF: 50%, LV systolic fxn low, RV systolic fxn normal, LA mildly dilated, s/p lasix 20mg post transfusion #HTN continue to hold bp meds since running low DVT Px: SCDs , AC is contraindicated due to having low hemoglobin presented with 3.7
[2018-05-22] MEDS: INSULIN SLIDING SCALE (NOVOLOG) 1 VIAL SQ SCH ×4 (06:20→21:54)
[2018-05-22 06:44] LABS: HEMATOCRIT 26.8 % (35.4-49); HEMOGLOBIN 8.2 GM/dL (11.7-16.9); MCHC 30.7 g/dl (32.0-35.9); MEAN CELL VOLUME 71.6 fl (80-96); MEAN PLT VOLUME 9.1 fl (7.5-11.1); PLATELET COUNT 141 K/MM3 (134-434); RBC 3.74 M/mm3 (4.00-5.60); RDW 32.5 % (11.9-15.9); WHITE BLOOD COUNT 4.9 K/mm3 (4.0-10.0)
[2018-05-22 07:01] LABS: INR 1.47 (0.83-1.09); PROTHROMBIN TIME (PATIENT) 17.4 SEC (9.7-13.0)
[2018-05-22 07:04] LABS: ACTIVATED PTT 33.5 SECONDS (25.2-36.5)
[2018-05-22 07:46] LABS: ALBUMIN 2.3 g/dl (3.4-5.0); ALK PHOS 84 U/L (45-117); ANION GAP 8 MMOL/L (8-16); BILIRUBIN,DIRECT 0.5 mg/dL (0.0-0.2); BILIRUBIN,TOTAL 0.8 mg/dL (0.2-1); BLOOD UREA NITROGEN 14 mg/dL (7-18); CALCIUM 8.2 mg/dL (8.5-10.1); CHLORIDE 112 mmol/L (98-107); CO2 24 mmol/L (21-32); CREATININE 1.3 mg/dL (0.55-1.3); GLUCOSE,RANDOM 88 mg/dL (74-106); POTASSIUM 3.6 mmol/L (3.5-5.1); SGOT/AST 16 U/L (15-37); SGPT/ALT 54 U/L (13-61); SODIUM 144 mmol/L (136-145); TOT PROT 5.6 g/dl (6.4-8.2)
--- NOTE | 2018-05-22 09:09 | PN ---
Physical Exam: SUBJECTIVE: Patient is a 82 y/o male with a history of CHF, CAD s/p CABG, DM, HTN, and BPH who is admitted for anemia. Patient reports he is feeling better and has no other complaints today/ Patient to have EGD done today. OBJECTIVE: Vital Signs Temperature 99.1 F 05/22/18 07:31 Pulse Rate 73 05/22/18 07:31 Respiratory Rate 18 05/22/18 07:31 Blood Pressure 116/50 L 05/22/18 07:31 O2 Sat by Pulse Oximetry (%) 93 L 05/21/18 08:45 GENERAL: Awake, alert, and fully oriented, in no acute distress. Pale HEAD: Normal with no signs of trauma. NECK: Normal range of motion, supple without lymphadenopathy, JVD, or masses. LUNGS: Breath sounds equal, clear to auscultation bilaterally. No wheezes, and no crackles. No accessory muscle use. HEART: Regular rate and rhythm, normal S1 and S2 without murmur, rub or gallop. Pacemaker ABDOMEN: Soft, nontender, not distended, normoactive bowel sounds, no guarding, no rebound, no masses. Tympanic to percussion MUSCULOSKELETAL: Normal range of motion at all joints. No bony deformities or tenderness. LOWER EXTREMITIES: 2+ pulses, warm, well-perfused. No calf tenderness. No peripheral edema. RECTAL: no internal or external hemorrhoids, no stool in the vault, no blood per rectum NEUROLOGICAL: Cranial nerves II-XII intact. Normal speech. Muscle strength 5/5 UE and 5/5 LE SKIN: Warm, dry, normal turgor, no rashes or lesions noted, normal capillary refill. CBC, BMP 05/22/18 05:30 05/22/18 05:30 Active Medications Ceftriaxone Sodium 1 gm/ (Dextrose) 50 mls @ 100 mls/hr IVPB DAILY [facility] Last Admin: 05/21/18 10:22 Dose: 100 mls/hr Insulin Aspart (Novolog Vial Sliding Scale -) 1 vial SQ ACHS [facility]; Protocol Last Admin: 05/22/18 06:20 Dose: Not Given Pantoprazole Sodium (Protonix Iv) 40 mg IVPUSH DAILY [facility] Last Admin: 05/21/18 10:23 Dose: 40 mg ASSESSMENT/PLAN: Patient is a 82 y/o male with a history of CHF, CAD s/p CABG, DM, HTN, and BPH who presents for weakness. #Weakness 2/2 to anemia likely GI bleed, cannot r/o malignancy vs production - Hgb: 8.2 - receive 5 units PRBC in total - Protonix 40 mg po daily - elliquis held - Vitamin K 10 mg x 1 - EGD today with Dr. Woods, INR 1.47 #UTI - UA: WBC: 16, trace LE - Rocephin 1 gm day 4 - UCX: no growth - monitor clinically #CHAIM likely prerenal: resolved -cr:1.3 #DM - SS prn - f/u A1C - antiglycemic medications held #CHF - Echo 03/13: EF: 50%, LV systolic fxn low, RV systolic fxn normal, LA mildly dilated - medications held - CXR: mild congestive changes, similar to 03/13 XRay - patient to receive 20 lasix after 2 units of blood #HTN - antihypertensives held - resume when hemodynamically stable Dispo: Colonoscopy tomorrow Visit type - Emergency Visit Emergency Visit: No - New Patient This patient is new to me today: No - Critical Care Critical Care patient: No
[2018-05-22] MEDS ORDERED: DEXTROSE 5%-WATER - 50 ML IVPB ONE (09:12)
[2018-05-22] MEDS ORDERED: cefTRIAXone SODIUM 1 GM VIAL ONE (09:12)
[2018-05-22] MEDS: PANTOPRAZOLE SODIUM 40 MG VIAL IVPUSH SCH (09:23)
--- NOTE | 2018-05-22 09:45 | PN ---
Teaching Attending Note Name of Resident: Nydia Sams ATTENDING PHYSICIAN STATEMENT I saw and evaluated the patient. I reviewed the resident's note and discussed the case with the resident. I agree with the resident's findings and plan as documented. SUBJECTIVE: Patient is comfortable with no acute distress , no further bleed , patient is going for EGD. today. OBJECTIVE: Vital Signs Temperature 99.1 F 05/22/18 07:31 Pulse Rate 73 05/22/18 07:31 Respiratory Rate 18 05/22/18 07:31 Blood Pressure 116/50 L 05/22/18 07:31 O2 Sat by Pulse Oximetry (%) 93 L 05/21/18 08:45 GENERAL: Awake, alert with no acute distress. Pale HEAD: Normal with no signs of trauma. EYES: Pupils equal, round and reactive to light, EOMI , sclera anicteric. EARS, NOSE, THROAT: Moist mucous membranes. No evidence of jaundice NECK: Normal range of motion, supple without lymphadenopathy, JVD, or masses. LUNGS: decreased Breath sounds at basis. No wheezes, and no crackles. No accessory muscle use. HEART: Regular rate and rhythm, normal S1 and S2 without murmur, rub or gallop. Pacemaker ABDOMEN: Soft, NT, ND, normoactive bowel sounds, no guarding, no rebound, no masses. MUSCULOSKELETAL: Normal range of motion at all joints. No bony deformities or tenderness. EXTREMITIES: 2+ pulses, warm, well-perfused. No calf tenderness. No peripheral edema. NEUROLOGICAL: Cranial nerves II-XII intact. Normal speech. Muscle strength 5/5 UE and 5/5 LE PSYCHIATRIC: Cooperative. Good eye contact. Appropriate mood and affect. SKIN: Warm, dry, normal turgor, no rashes or lesions noted, normal capillary refill. CBCD WBC 4.9 K/mm3 (4.0-10.0) 05/22/18 05:30 RBC 3.74 M/mm3 (4.00-5.60) L 05/22/18 05:30 Hgb 8.2 GM/dL (11.7-16.9) L 05/22/18 05:30 Hct 26.8 % (35.4-49) L 05/22/18 05:30 MCV 71.6 fl (80-96) L 05/22/18 05:30 MCHC 30.7 g/dl (32.0-35.9) L 05/22/18 05:30 RDW 32.5 % (11.9-15.9) H 05/22/18 05:30 Plt Count 141 K/MM3 (134-434) 05/22/18 05:30 MPV 9.1 fl (7.5-11.1) 05/22/18 05:30 CMP Sodium 144 mmol/L (136-145) 05/22/18 05:30 Potassium 3.6 mmol/L (3.5-5.1) 05/22/18 05:30 Chloride 112 mmol/L (98-107) H 05/22/18 05:30 Carbon Dioxide 24 mmol/L (21-32) 05/22/18 05:30 Anion Gap 8 MMOL/L (8-16) 05/22/18 05:30 BUN 14 mg/dL (7-18) 05/22/18 05:30 Creatinine 1.3 mg/dL (0.55-1.3) 05/22/18 05:30 Creat Clearance w eGFR 52.72 (>60) 05/22/18 05:30 Random Glucose 88 mg/dL (74-106) 05/22/18 05:30 Calcium 8.2 mg/dL (8.5-10.1) L 05/22/18 05:30 Total Bilirubin 0.8 mg/dL (0.2-1) 05/22/18 05:30 AST 16 U/L (15-37) 05/22/18 05:30 ALT 54 U/L (13-61) 05/22/18 05:30 Alkaline Phosphatase 84 U/L (45-117) 05/22/18 05:30 Total Protein 5.6 g/dl (6.4-8.2) L 05/22/18 05:30 Albumin 2.3 g/dl (3.4-5.0) L 05/22/18 05:30 CARDIAC ENZYMES Troponin I 0.02 ng/ml (0.00-0.05) 05/18/18 19:28 Current Medications Generic Name Dose Route Start Last Admin Trade Name Freq PRN Reason Stop Dose Admin Ceftriaxone Sodium 1 gm/ 50 mls @ 100 mls/hr 05/19/18 10:00 05/21/18 10:22 Dextrose IVPB 100 mls/hr DAILY [facility] Administration Insulin Aspart 1 vial 05/19/18 07:00 05/22/18 06:20 Novolog Vial Sliding Scale - SQ Not Given ACHS [facility] Protocol Pantoprazole Sodium 40 mg 05/19/18 10:00 05/22/18 09:23 Protonix Iv IVPUSH 40 mg DAILY [facility] Administration Home Medications Medication Instructions Recorded Tamsulosin HCl 0.4 mg PO 1800 12/06/12 Amlodipine Besylate [Norvasc -] 10 mg PO DAILY 08/22/17 Aspirin 81 mg PO DAILY 08/22/17 Insulin Glargine,Hum.rec.anlog 15 units SQ HS 08/23/17 [Lantus Solostar PEN -] Lisinopril [Prinivil -] 40 mg PO DAILY 08/23/17 Prednisolone 1% Ophthalmic [Pred 1 drop OS BID 08/23/17 Forte 1% -] Sitagliptin Phosphate [Januvia] 100 mg PO DAILY 08/23/17 Tadalafil [Cialis] 20 mg PO ASDIR 08/23/17 Timolol 0.5% [Timoptic 0.5%] 1 drop OS BID 08/23/17 Apixaban [Eliquis] 5 mg PO BID 03/04/18 Furosemide [Lasix -] 40 mg PO DAILY #30 tablet 03/04/18 Nystatin Cream [Mycostatin Cream -] 1 applic TP BID #14 applic 03/04/18 Echo 03/13: EF: 50%, LV systolic fxn low, RV systolic fxn normal, LA mildly dilated, s/p lasix 20mg post transfusion Assessment and plan: Patient is a 82 y/o male with a history of CHF, CAD s/p CABG, DM, HTN, and BPH who presents for weakness. # Acute anemia due to Acute blood loss cannot r/o malignancy , Eliquis is on hold. s/p blood transfusions, going for EGD today by .Eliquis held x 4 days ago, s/p sq Vit. K by since patient is going for EGD today. #UTI follow Ucx On Rocephin 1gm #CHAIM likely prerenal, improving 2.2--> 1.6-->1.3 today #T2DM: SS with coverage #CHF Echo 03/13: EF: 50%, LV systolic fxn low, RV systolic fxn normal, LA mildly dilated, s/p lasix 20mg post transfusion #HTN continue to hold bp meds since running low DVT Px: SCDs contraindicated due to having low hemoglobin presented with 3.7
[2018-05-22] MEDS ORDERED: BISACODYL 5 MG TABLET.DR (FP) PO ONE (15:46)
[2018-05-22] MEDS ORDERED: PHYTONADIONE 10 MG/1 ML AMP SQ ONE (15:49)
--- NOTE | 2018-05-22 15:50 | PN ---
Progress Note (short form) - Note Progress Note: EGD complete. Procedure report left in procedural section of chart and to be scanned into [employer]
--- NOTE | 2018-05-22 16:53 | PN ---
Progress Note, Physician Chief Complaint: Lt A&Ox3; just retruned from endoscopy, and feels sore in the throat.and abdomen. History of Present Illness: Patient is an 82 year old man with a history of mild systolic (low-normal LVEF by 2018 ECHO)/diastolic CHF, s/p aortic valve replacment x 2 (1st in 2005), DM, HTN, heart valve replacement, Pacemaker and BPH who presents to the ER with generalized weakness that has been ongoing for 1.5 weeks. States he has no energy and has had shaking throughout. Last cardiac workup was done 1 month ago per the patient by his turn laster (Dr. Jenkins in [place]) and stated it was "normal". He has been having poor appetite and denies the following: nausea, vomiting, visual changes, headaches, chest pain, SOB, abdominal pain, hematochezia, hematuria, dysuria, melena, and leg pain/swelling. His last colonoscopy was "over 10 years ago" and was considered normal. Denies fever and chills. - Current Medication List Current Medications: Active Medications Insulin Aspart (Novolog Vial Sliding Scale -) 1 vial SQ [facility]; Protocol Last Admin: 05/22/18 14:56 Dose: Not Given Pantoprazole Sodium (Protonix Iv) 40 mg IVPUSH DAILY [facility] Last Admin: 05/22/18 09:23 Dose: 40 mg Polyethylene Glycol/Electrolytes (Golytely Solution -) 4,000 ml PO ONCE ONE Stop: 05/22/18 17:01 - Objective Vital Signs: Vital Signs Temperature 97.8 F 05/22/18 15:51 Pulse Rate 64 05/22/18 16:27 Respiratory Rate 18 05/22/18 16:27 Blood Pressure 117/69 05/22/18 16:27 O2 Sat by Pulse Oximetry (%) 98 05/22/18 16:27 Labs: CBC, BMP 05/22/18 05:30 05/22/18 05:30 INR, PTT INR 1.47 (0.83-1.09) H 05/22/18 05:30 Problem List - Problems (1) Chronic combined systolic and diastolic CHF (congestive heart failure) Assessment/Plan: Recommend beta blocke (carvedilol or metorpolol) and ACEI or ARB(low-normal LVEF on ECHO; mild AR; modereately severe MR). F/u BUN/Cr, electrolytes, daily weight, Is and Os. Code(s): I50.42 - CHRONIC COMBINED SYSTOLIC AND DIASTOLIC HRT FAIL (2) GI bleed Assessment/Plan: Awaits completion of GI workup (colonoscoopy in am; s/p EGD today) regarding source of GI bloeed. Code(s): K92.2 - GASTROINTESTINAL HEMORRHAGE, UNSPECIFIED (3) HTN (hypertension) Code(s): I10 - ESSENTIAL (PRIMARY) HYPERTENSION (4) Anemia Code(s): D64.9 - ANEMIA, UNSPECIFIED Qualifiers: Anemia type: unspecified type Qualified Code(s): D64.9 - Anemia, unspecified (5) Diabetes Code(s): E11.9 - TYPE 2 DIABETES MELLITUS WITHOUT COMPLICATIONS (6) Paroxysmal atrial fibrillation Assessment/Plan: Off apixaban while GI workup in progress regarding GI bleed. Code(s): I48.0 - PAROXYSMAL ATRIAL FIBRILLATION (7) H/O prosthetic aortic valve replacement Code(s): Z95.2 - PRESENCE OF PROSTHETIC HEART VALVE
[2018-05-22] MEDS ORDERED: FUROSEMIDE 40 MG/4 ML INJECTABLE VIAL IVPUSH ONE (16:54)
[2018-05-22] MEDS ORDERED: PEG 3350/NA SULF BICARB CL/KCL 4000 ML SOLN.RECON PO ONE (17:00)
[2018-05-23] MEDS: INSULIN SLIDING SCALE (NOVOLOG) 1 VIAL SQ SCH ×4 (06:31→21:16)
[2018-05-23 07:37] LABS: INR 1.31 (0.83-1.09); PROTHROMBIN TIME (PATIENT) 15.5 SEC (9.7-13.0)
[2018-05-23 07:43] LABS: HEMATOCRIT 26.7 % (35.4-49); HEMOGLOBIN 8.2 GM/dL (11.7-16.9); MCHC 30.6 g/dl (32.0-35.9); MEAN CELL VOLUME 71.7 fl (80-96); MEAN PLT VOLUME 9.1 fl (7.5-11.1); PLATELET COUNT 130 K/MM3 (134-434); RBC 3.73 M/mm3 (4.00-5.60); WHITE BLOOD COUNT 4.1 K/mm3 (4.0-10.0)
[2018-05-23 08:27] LABS: ANION GAP 8 MMOL/L (8-16); BLOOD UREA NITROGEN 12 mg/dL (7-18); CALCIUM 8.1 mg/dL (8.5-10.1); CHLORIDE 111 mmol/L (98-107); CO2 24 mmol/L (21-32); CREATININE 1.1 mg/dL (0.55-1.3); GLUCOSE,RANDOM 82 mg/dL (74-106); POTASSIUM 3.5 mmol/L (3.5-5.1); SODIUM 143 mmol/L (136-145)
[2018-05-23] MEDS: PANTOPRAZOLE SODIUM 40 MG VIAL IVPUSH SCH (09:17)
--- NOTE | 2018-05-23 12:47 | PN ---
Progress Note, Physician History of Present Illness: 82 yo M with a hx of CHF, CAD s/p CABG x3 in 2005, DM, HTN, and BPH presents to the emergency department with generalized weakness that has been ongoing for 1.5 weeks. States he has no energy and has had shaking throughout. He has been having poor appetite and denies the following: nausea, vomiting, visual changes , headaches, chest pain, SOB, abdominal pain, hematochezia, hematuria, dysuria, melena, and leg pain/swelling. His last colonoscopy was "over 10 years ago" and was considered normal. Denies fever and chills. Pmhx: Refer to above Shx: CABG Meds: flomax, eliquis, lisinopril, aspirin 81 mg, amlodipine, furosemide, insulin, januvia. Allergies: NKDA Social: Denies tobacco, alcohol, and substance abuse. PMH AVR 23mm magna bioprostetic aortic valve Luke Bal [facility] AVR for IE/abscess, complicated by prosthetic AV IE reop done 2 months later Luke Salinas [facility] Homograft aortic root replacement s/p PPM Medtr[employer] DDD DM HTN Negative MIBI stress test December 2012 , September 2015 severe mitral regurgitation May 2017 CHF Diastolic Noncompliance Atrial Fibrillation - Current Medication List Current Medications: Active Medications Insulin Aspart (Novolog Vial Sliding Scale -) 1 vial SQ [facility]; Protocol Last Admin: 05/23/18 12:05 Dose: Not Given Pantoprazole Sodium (Protonix Iv) 40 mg IVPUSH DAILY [facility] Last Admin: 05/23/18 09:17 Dose: 40 mg - Objective Vital Signs: Vital Signs Temperature 98.2 F 05/23/18 10:00 Pulse Rate 68 05/23/18 10:00 Respiratory Rate 20 05/23/18 10:00 Blood Pressure 135/60 05/23/18 10:00 O2 Sat by Pulse Oximetry (%) 98 05/23/18 09:00 Eyes: Yes: WNL, Conjunctiva Clear, EOM Intact HENT: Yes: WNL, Atraumatic, Normocephalic Neck: Yes: WNL, Supple, Trachea Midline Cardiovascular: Yes: WNL, Regular Rate and Rhythm Respiratory: Yes: WNL, Regular, CTA Bilaterally Gastrointestinal: Yes: WNL, Normal Bowel Sounds Genitourinary: Yes: WNL Musculoskeletal: Yes: WNL Extremities: Yes: WNL Edema: No Integumentary: Yes: WNL Neurological: Yes: WNL, Alert, Oriented ...Motor Strength: WNL Psychiatric: Yes: WNL Labs: CBC, BMP 05/23/18 05:30 05/23/18 05:30 INR, PTT INR 1.31 (0.83-1.09) H 05/23/18 05:30 Assessment/Plan - Problems (1) Chronic combined systolic and diastolic CHF (congestive heart failure) Assessment/Plan: Recommend beta blocke (carvedilol or metorpolol) and ACEI or ARB(low-normal LVEF on ECHO; mild AR; modereately severe MR). F/u BUN/Cr, electrolytes, daily weight, Is and Os. Code(s): I50.42 - CHRONIC COMBINED SYSTOLIC AND DIASTOLIC HRT FAIL (2) GI bleed Assessment/Plan: Awaits completion of GI workup (colonoscoopy in am; s/p EGD today) regarding source of GI bloeed. Code(s): K92.2 - GASTROINTESTINAL HEMORRHAGE, UNSPECIFIED (3) HTN (hypertension) Code(s): I10 - ESSENTIAL (PRIMARY) HYPERTENSION (4) Anemia Code(s): D64.9 - ANEMIA, UNSPECIFIED Qualifiers: Anemia type: unspecified type Qualified Code(s): D64.9 - Anemia, unspecified (5) Diabetes Code(s): E11.9 - TYPE 2 DIABETES MELLITUS WITHOUT COMPLICATIONS (6) Paroxysmal atrial fibrillation Assessment/Plan: Off apixaban while GI workup in progress regarding GI bleed. Code(s): I48.0 - PAROXYSMAL ATRIAL FIBRILLATION (7) H/O prosthetic aortic valve replacement Code(s): Z95.2 - PRESENCE OF PROSTHETIC HEART VALVE
--- NOTE | 2018-05-23 17:08 | PN ---
Physical Exam: SUBJECTIVE: Patient is a 82 y/o male with a history of CHF, CAD s/p CABG, DM, HTN, and BPH who is admitted for anemia. Patient reports no complaints and no bleeding. Patient to have colonoscopy today OBJECTIVE: Vital Signs Temperature 97.7 F 05/23/18 15:29 Pulse Rate 60 05/23/18 15:29 Respiratory Rate 18 05/23/18 15:29 Blood Pressure 114/68 05/23/18 15:29 O2 Sat by Pulse Oximetry (%) 95 05/23/18 15:29 GENERAL: Awake, alert, and fully oriented, in no acute distress. Pale HEAD: Normal with no signs of trauma. NECK: Normal range of motion, supple without lymphadenopathy, JVD, or masses. LUNGS: Breath sounds equal, clear to auscultation bilaterally. No wheezes, and no crackles. No accessory muscle use. HEART: Regular rate and rhythm, normal S1 and S2 without murmur, rub or gallop. Pacemaker ABDOMEN: Soft, nontender, not distended, normoactive bowel sounds, no guarding, no rebound, no masses. Tympanic to percussion MUSCULOSKELETAL: Normal range of motion at all joints. No bony deformities or tenderness. LOWER EXTREMITIES: 2+ pulses, warm, well-perfused. No calf tenderness. No peripheral edema. RECTAL: no internal or external hemorrhoids, no stool in the vault, no blood per rectum NEUROLOGICAL: Cranial nerves II-XII intact. Normal speech. Muscle strength 5/5 UE and 5/5 LE SKIN: Warm, dry, normal turgor, no rashes or lesions noted, normal capillary refill. CBC, BMP 05/23/18 05:30 05/23/18 05:30 Active Medications Furosemide (Lasix -) 20 mg PO DAILY [facility] Insulin Aspart (Novolog Vial Sliding Scale -) 1 vial SQ ACHS [facility]; Protocol Last Admin: 05/23/18 12:05 Dose: Not Given Pantoprazole Sodium (Protonix Iv) 40 mg IVPUSH DAILY [facility] Last Admin: 05/23/18 09:17 Dose: 40 mg ASSESSMENT/PLAN: Patient is a 82 y/o male with a history of CHF, CAD s/p CABG, DM, HTN, and BPH who presents for weakness. #Weakness 2/2 to anemia likely GI bleed, cannot r/o malignancy vs production - Hgb: 8.2 - receive 5 units PRBC in total - Protonix 40 mg po daily - elliquis held - Vitamin K 10 mg x 1 - EGD showed mild gastritis, no bleeding ulcers - Colonoscopy snowed no ulcers - per GI: f/u with capsule endoscopy - monitor patient on : lactose free, no fruit, no vegetables #UTI - UA: WBC: 16, trace LE - Rocephin 1 gm day 5 - UCX: no growth - monitor clinically #CHAIM likely prerenal: resolved -cr:1.1 #DM - SS prn - f/u A1C - antiglycemic medications held - has no needed insulin yet, f/u after meals started #CHF - Echo 03/13: EF: 50%, LV systolic fxn low, RV systolic fxn normal, LA mildly dilated - medications held - CXR: mild congestive changes, similar to 03/13 XRay - restart 20 mg lasix tomorrow po , home dose 40 #HTN - antihypertensives held, cardio recs - resume when hemodynamically stable Dispo: monitor labs and f/u cardio for when to restart elliquis Visit type - Emergency Visit Emergency Visit: No - New Patient This patient is new to me today: No - Critical Care Critical Care patient: No
--- NOTE | 2018-05-23 18:38 | PN ---
Teaching Attending Note Name of Resident: Nydia Sams ATTENDING PHYSICIAN STATEMENT I saw and evaluated the patient. I reviewed the resident's note and discussed the case with the resident. I agree with the resident's findings and plan as documented. SUBJECTIVE: No fever or chills . No abd pain. OBJECTIVE: NAD Cv : RRR, 3/6 SM at LUSB , LLSB and RUSB Ext : no edema ASSESSMENT AND PLAN: 82 y/o man with h/o HTN, A fib, CHF, CAD s/p CABG, DM, and other medical problems who presented with weakness and was found ot have anemia. 1- Iorn def Anemia: ? GI loss . EGD and colo not revealing of a source. cont to hold AC with no obvious source monitor will start iron sup at dc capsule endoscopy as ou tpt cont PPI 2- h/o CHF: euvolemic now. - resume half dose of lasix and increae as tolerated - resume lisinopril. hold norvasc and start low dose coreg 3- DM : cont SSI . if sugar is elevated , can resume his HS levemir 4- pyuria : no growth. no need for Abx 5- HTN: as above possible dc tomorrow
[2018-05-23] MEDS ORDERED: INSULIN (NOVOLOG) ASPART 100 UNITS/ML 10ML VIAL ONE (21:13)
[2018-05-23] MEDS: CARVEDILOL 3.125 MG TABLET (FP) PO SCH (21:16)
[2018-05-24] MEDS: INSULIN SLIDING SCALE (NOVOLOG) 1 VIAL SQ SCH ×3 (06:38→17:09)
[2018-05-24 08:31] LABS: ALBUMIN 2.4 g/dl (3.4-5.0); ALK PHOS 86 U/L (45-117); ANION GAP 8 MMOL/L (8-16); BILIRUBIN,TOTAL 0.9 mg/dL (0.2-1); BLOOD UREA NITROGEN 16 mg/dL (7-18); CALCIUM 8.1 mg/dL (8.5-10.1); CHLORIDE 110 mmol/L (98-107); CO2 23 mmol/L (21-32); CREATININE 1.2 mg/dL (0.55-1.3); GLUCOSE,RANDOM 92 mg/dL (74-106); POTASSIUM 3.7 mmol/L (3.5-5.1); SGOT/AST 22 U/L (15-37); SGPT/ALT 42 U/L (13-61); SODIUM 142 mmol/L (136-145); TOT PROT 5.8 g/dl (6.4-8.2)
[2018-05-24 08:41] LABS: HEMATOCRIT 27.6 % (35.4-49); HEMOGLOBIN 8.3 GM/dL (11.7-16.9); MCH 21.7 pg (25.7-33.7); MEAN CELL VOLUME 72.4 fl (80-96); MEAN PLT VOLUME 9.9 fl (7.5-11.1); PLATELET COUNT 115 K/MM3 (134-434); RBC 3.81 M/mm3 (4.00-5.60); RDW 33.4 % (11.9-15.9); WHITE BLOOD COUNT 4.5 K/mm3 (4.0-10.0)
[2018-05-24] MEDS: CARVEDILOL 3.125 MG TABLET (FP) PO SCH (09:56)
[2018-05-24] MEDS: PANTOPRAZOLE SODIUM 40 MG VIAL IVPUSH SCH (09:57)
[2018-05-24] MEDS ORDERED: FUROSEMIDE 20 MG TABLET (FP) PO SCH (10:00)
[2018-05-24] MEDS ORDERED: LISINOPRIL 20 MG TABLET (FP) PO SCH (10:00)
--- NOTE | 2018-05-24 11:14 | PN ---
Teaching Attending Note Name of Resident: Nydia Sams ATTENDING PHYSICIAN STATEMENT I saw and evaluated the patient. I reviewed the resident's note and discussed the case with the resident. I agree with the resident's findings and plan as documented. SUBJECTIVE: No fever or chills . No SOB, no CP. Had BM but no bleeding or melena OBJECTIVE: NAD Cv : RRR, 3/6 SM at LLSB and apex Ext : no edema Abd: soft, NT, Nd , NL BS ASSESSMENT AND PLAN: 82 y/o man with h/o HTN, A fib, CHF, CAD s/p CABG, DM, and other medical problems who presented with weakness and was found ot have anemia. 1- Iron def Anemia: ? GI loss . EGD and colo not revealing of a source. cont to hold AC with no obvious source, until probably after his capsule endoscopy if neg. Risk of bleeding oevrweigh risk of stroke ( presented with Hb of 3 ) will start iron sup at dc F/U with GI, capsule endoscopy as out pt. cont PPI 2- h/o CHF: euvolemic. - will increase lasix to home dose at dc - Cont lisinopril. hold norvasc and start low dose coreg . will not resume norvasc at dc 3- DM : A1c is 6.5. dc home insulin and cont Januvia. check sugar 3 times a day , and report to PCP . 4- pyuria : no growth. no need for Abx 5- HTN: as above DC home today. will d/w family.
--- NOTE | 2018-05-24 13:35 | PATH ---
Surgical Pathology Report Patient Name: CURTIS PRICE Med. Rec. #: [id number] /Age/Gender: 1935 (Age: 82) / M Account: [id number] Location: 4 W TELEMETRY U Taken: 05/22/2018 Received: 05/23/2018 Reported: 05/24/2018 Physicians: Elliott Arreaga M.D. Specimen(s) Received A: BX ANTRAL EROSIONS B: BX CARDIA C: BX GASTRIC POLYP Clinical History Anemia Postoperative diagnosis: Antral erosion, gastric polyps, gastritis Final Diagnosis A. STOMACH, ANTRUM, BIOPSY: GASTRIC ANTRAL MUCOSA WITH MILD CHRONIC GASTRITIS. IMMUNOHISTOCHEMICAL STAIN FOR H. PYLORI IS NEGATIVE. B. STOMACH, CARDIA, BIOPSY: GASTRIC CARDIAC TYPE MUCOSA WITH MILD CHRONIC GASTRITIS. IMMUNOHISTOCHEMICAL STAIN FOR H. PYLORI IS NEGATIVE. C. STOMACH, GASTRIC POLYP, BIOPSY: FUNDIC GLAND POLYP. IMMUNOHISTOCHEMICAL STAIN FOR H. PYLORI IS NEGATIVE. Electronically Signed Nydia Posey M.D. Gross Description A. Received in formalin, labeled "biopsy antral erosion" is a hel[place], irregular portion of soft tissue measuring 0.4 cm. in greatest dimension. The specimen is submitted in toto in one cassette. B. Received in formalin, labeled "biopsy cardia of stomach" are 3 [place], irregular portions of soft tissue ranging from 0.1-0.3 cm. in greatest dimension. The specimens are submitted in toto in one cassette. C. Received in formalin, labeled "biopsy gastric polyp" are 2 hel[place], irregular portions of soft tissue measuring 0.2 and 0.6 cm. in greatest dimension. The specimens are submitted in toto in one cassette. DL/05/23/2018 saudi05/23/2018
[2018-05-24 13:41] VITALS: BMI 28.0
[2018-05-24 14:14] VITALS: BP 126/94; PULSE 62; TEMP 98.1
--- NOTE | 2018-05-24 15:02 | DS ---
Physical Exam: SUBJECTIVE: Patient is a 82 y/o male with a history of CHF, CAD s/p CABG, DM, HTN, and BPH who is admitted for anemia. Patient reports no complaints and has had no more bleeding. Patient able to tolerate diet. No acute events overnight. OBJECTIVE: Vital Signs Temperature 98.1 F 05/24/18 14:00 Pulse Rate 62 05/24/18 14:00 Respiratory Rate 18 05/24/18 09:00 Blood Pressure 126/94 05/24/18 14:00 O2 Sat by Pulse Oximetry (%) 98 05/24/18 09:00 PHYSICAL EXAM GENERAL: Awake, alert, and fully oriented, in no acute distress. Pale HEAD: Normal with no signs of trauma. NECK: Normal range of motion, supple without lymphadenopathy, JVD, or masses. LUNGS: Breath sounds equal, clear to auscultation bilaterally. No wheezes, and no crackles. No accessory muscle use. HEART: Regular rate and rhythm, normal S1 and S2 without murmur, rub or gallop. Pacemaker ABDOMEN: Soft, nontender, not distended, normoactive bowel sounds, no guarding, no rebound, no masses. Tympanic to percussion MUSCULOSKELETAL: Normal range of motion at all joints. No bony deformities or tenderness. LOWER EXTREMITIES: 2+ pulses, warm, well-perfused. No calf tenderness. No peripheral edema. RECTAL: no internal or external hemorrhoids, no stool in the vault, no blood per rectum NEUROLOGICAL: Cranial nerves II-XII intact. Normal speech. Muscle strength 5/5 UE and 5/5 LE SKIN: Warm, dry, normal turgor, no rashes or lesions noted, normal capillary refill. LABS CBC, BMP 05/24/18 06:10 05/24/18 06:10 HOSPITAL COURSE: Date of Admission:05/18/18 Patient admitted to hospital for anemia of 3.7. Patient received 5 units of PRBC. Patient evaluated by GI. Patient had a endoscopy done that only showed mild gastritis. This did not show reason for anemia and a colonoscopy was preformed. This only showed shallow ulcers. Patient Hgb remained stable at 8 after transfusion. Per GI patient should have a video capsule study done to determine bleeding. Hospitalist team set up a appointment for patient to have one done outpatient. Patients HTN was continue to be treated with lisinopril and added coreg. Patients sugars were well controlled in the hospital. He will continue to take Januvia, but insulin will be held. Held patients aspirin and elliquis per GI, can resume once video capsule has been completed. Discussed risks and benefits of holding elliquis with patient. Patient family stated understanding. UCX: no growth Head CT: no acute pathology CXR: large heart ABD CT: bilateral effusions and cardiomegaly, ascites, cholelithiasis Date of Discharge: 05/24/18 Minutes to complete discharge: 39 Discharge Summary Reason For Visit: ANEMIA Current Active Problems Anemia (Chronic) Atrial fibrillation (Chronic) Chronic combined systolic and diastolic CHF (congestive heart failure) (Chronic) H/O prosthetic aortic valve replacement (Chronic) HTN (hypertension) (Chronic) Condition: Improved - Instructions Diet, Activity, Other Instructions: You came to the hospital because your hemoglobin ( red blood cells) were low. While you were here we gave you units of blood to help bring your hemoglobin levels back up. You were seen by our GI doctor. He did imaging of your esophagus , stomach, and colon (EGD and Colonoscopy) that did not show any bleeding. The imaging did not show anything abnormal, but you should have further imaging done. You need to have a imaging done with a video capsule. We have sent your Medical records to the office of Dr. Prado who is a specialtist and can have the video capsule imaging done. Please avoid taking any NSAID medications as it may worsen your bleeding. You should follow up with Dr. Tapia. Your appointment for the video capsule: May 29 at 8:[address] Prado in [address], [place] [address] For your Diabetes you will now take: Januvia 100 mg by mouth daily For your high blood pressure you will now take: Coreg 3.25 mg by mouth twice a day Lisinopril 40 mg by mouth daily Lasix 40 mg by mouth daily Medication changes: You will no longer take insulin or norvasc Do not take your aspirin and eliquis until you have completed the video capsule by Dr. Prado Please follow up with your PCP within one week. Return to the ED if you have any bleeding, chest pain, headache, nausea, or vomiting. You need to follow with garnisher , Dr. Farrell for work up of your anemia En Espanol Usted vino al hospital porque burgos hemoglobina (glbulos rojos) estaba baja. Mientras estuvo aqu, le proporcionamos unidades de janine para ayudarlo a recuperar mirta niveles de hemoglobina. Usted fue visto por nuestro mdico GI. Hizo imgenes de burgos esfago, estmago y colon (EGD y colonoscopia) que no mostraron sangrado. La imagen no mostr nada anormal, beulah debe realizarse ms imgenes. Es necesario tener sin imagen con sin cpsula de video. Hemos enviado mirta registros mdicos a la oficina del Dr. Prado, que es un especialista y puede tener la imagen de la cpsula de video hecha. Evite andrea cualquier medicamento JAZMINE ya que puede empeorar burgos sangrado. Deberas seguir con el Dr. Tapia. Burgos angel para la cpsula de vdeo: 4 de diciembre a las 8:[address] Prado en [facility] [address], [place] [address] Para tu diabetes ahora tomars: Januvia 100 mg por va oral al da. Para burgos presin arterial david ahora andrea: Coreg 3.25 mg por va oral dos veces al da. Lisinopril 40 mg por va oral al da. Lasix 40 mg por va oral al da. Cambios de medicacin: Ya no vas a andrea insulina or norvasc No tome burgos aspirina y eliquis hasta que haya completado la cpsula de video del Dr. Prado. Por favor radha un seguimiento con burgos PCP dentro de sin semana. Regrese a la elda de emergencias si tiene sangrado, dolor en el pecho, dolor de harinder, nuseas o vmitos. Debe seguir con el hematlogo, el Dr. Farrell para el tratamiento de burgos anemia. Referrals: Brock Prado [Other] Elijah Tapia DO [Staff Physician] - 1 Week Akilah Mays [Primary Care Provider] - 1 Week Harvey Farrell MD [Staff Physician] - 2 Weeks Disposition: HOME - Home Medications Comprehensive Discharge Medication List: Ambulatory Orders Lisinopril [Prinivil -] 40 mg PO DAILY 08/23/17 Furosemide [Lasix -] 40 mg PO DAILY #30 tablet 03/04/18 Carvedilol [Coreg -] 3.125 mg PO BID #60 tablet 05/24/18 Sitagliptin Phosphate [Januvia] 100 mg PO DAILY #60 tablet 05/24/18 This patient is new to me today: No Emergency Visit: No Critical Care patient: No - Discharge Referral Referred to [facility] No
== END 2018-05-24 17:34 | disposition home or self-care (01) | DRG 378 ==
LOC: JER 17:54 → JERBED 20:50 → J4W 05-19 01:17
PROVIDERS: ADMIT Internal Medicine; ATTEND Internal Medicine
PROC: 30233N1 Transfusion of Nonautologous Red Blood Cells into Peripheral Vein, Percutaneous Approach (ICD-10-PCS; 2018-05-18)
PROC: 0DB68ZX Excision of Stomach, Via Natural or Artificial Opening Endoscopic, Diagnostic (ICD-10-PCS; 2018-05-22)
PROC: 0DB68ZX Excision of Stomach, Via Natural or Artificial Opening Endoscopic, Diagnostic (ICD-10-PCS; 2018-05-22)
PROC: 0DJD8ZZ Inspection of Lower Intestinal Tract, Via Natural or Artificial Opening Endoscopic (ICD-10-PCS; principal; 2018-05-23 13:15)
DX: K92.2 Gastrointestinal hemorrhage, unspecified (principal); N17.9 Acute kidney failure, unspecified; D62 Acute posthemorrhagic anemia; I50.42 Chronic combined systolic (congestive) and diastolic (congestive) heart failure; I25.10 Atherosclerotic heart disease of native coronary artery without angina pectoris; N40.0 Benign prostatic hyperplasia without lower urinary tract symptoms; E11.9 Type 2 diabetes mellitus without complications; E88.09 Other disorders of plasma-protein metabolism, not elsewhere classified; I11.0 Hypertensive heart disease with heart failure; K64.8 Other hemorrhoids; K29.70 Gastritis, unspecified, without bleeding; K63.5 Polyp of colon; K21.0 Gastro-esophageal reflux disease with esophagitis; Z95.2 Presence of prosthetic heart valve; Z95.1 Presence of aortocoronary bypass graft; Z95.0 Presence of cardiac pacemaker
CPT/HCPCS: 36415; 36430; 36511; 70450-TC; 71045-TC-FY; 74176-TC; 80048; 80053; 80076; 81003; 81015; 82272; 82728; 82803; 82962; 83036; 83540; 83550; 83605; 83735; 83880; 84100; 84466; 84484; 85025; 85027; 85610; 85730; 86850; 86900; 86901; 86922; 87086; 88305-TC; 93005; 93010; 99284-25; P9038; P9058

== ENCOUNTER 2018-08-31 11:02 | Observation (INO) | payer MEDICARE, OTHER ==
[2018-08-31 11:41] VITALS: TEMP 97.7; BMI 30.9
--- NOTE | 2018-08-31 13:16 | PDOC ---
History of Present Illness - General Chief Complaint: Lightheaded Stated Complaint: Injury - History of Present Illness Initial Comments: 08/31/18 13:11 82 yo male with PMH CHF, CAD s/p CABG, DM, HTN, and BPH, presents following an episode of lightheadedness upon standing up after using the restroom. He states this has happened in the past as well. He denies any LOC or fall, though states that he had to grab onto the door and lean into it to prevent him from falling to the floor. He denies any head trauma or pain anywhere. He describes the event as feeling warm all over followed by lightheadedness. Of note he states he saw a career development specialist yesterday as a routine follow up and was told he was doing well, however he was told to return on the for an exam of his neck which he cannot further explain. His recent admission for anemia was noted and discussed. pt does not remember whether he followed up with the scheduled Pill camera evaluation for possible bleeding. As per the , pt has had his blood work checked very regularly, though when further investigated, pt has not had blood drawn in at least a month or two. Pt is somewhat a poor historian as he did not remember whether blood work was drawn yesterday at career development specialist office or not, further history was taken from who is at bedside. Past History - Travel Traveled outside of the country in the last 30 days: No - Past Medical History Allergies/Adverse Reactions: Allergies Allergy/AdvReac Type Severity Reaction Status Date / Time No Known Drug Allergies Allergy Verified 05/18/18 18:41 Home Medications: Ambulatory Orders Lisinopril [Prinivil -] 40 mg PO DAILY 08/23/17 Furosemide [Lasix -] 40 mg PO DAILY #30 tablet 03/04/18 Sitagliptin Phosphate [Januvia] 100 mg PO DAILY #60 tablet 05/24/18 Amlodipine Besylate [Norvasc -] 10 mg PO DAILY 08/31/18 Apixaban [Eliquis] 5 mg PO DAILY 08/31/18 Ascorbic Acid [Vitamin C] 500 mg PO DAILY 08/31/18 Aspirin 81 mg PO DAILY 08/31/18 Carvedilol [Coreg -] 3.125 mg PO DAILY 08/31/18 Ferrous Sulfate 325 mg PO DAILY 08/31/18 Iron 65 mg PO DAILY 08/31/18 Tamsulosin HCl [Flomax] 0.4 mg PO DAILY 08/31/18 Cardiac Disorders: Yes (cad,s/p CABGx3,ppm) COPD: No CHF: Yes Diabetes: Yes HTN: Yes - Surgical History Abdominal Surgery: Yes (HERNIA REPAIR) Cardiac Surgery: Yes (VALVE REPLACED/PACEMAKER) - Suicide/Smoking/Psychosocial Hx Smoking Status: No Smoking History: Never smoked Have you smoked in the past 12 months: No Number of Cigarettes Smoked Daily: 0 Hx Alcohol Use: No Drug/Substance Use Hx: No Substance Use Type: None Hx Substance Use Treatment: No Review of Systems - Review of Systems Able to Perform ROS?: Yes Constitutional: Yes: Weakness. No: Chills, Fever HEENTM: No: Blurred Vision Respiratory: No: Cough, Shortness of Breath Cardiac (ROS): Yes: Lightheadedness. No: Chest Pain, Irregular Heart Rate, Palpitations ABD/GI: No: Abdominal Distended, Nausea, Vomiting Musculoskeletal: No: Back Pain *Physical Exam - Vital Signs Last Vital Signs Temp Pulse Resp BP Pulse Ox 97.7 F 67 14 110/63 98 08/31/18 11:05 08/31/18 11:05 08/31/18 11:05 08/31/18 11:05 08/31/18 11:05 - Physical Exam Comments: 08/31/18 13:16 GEN: A&O, no acute distress HEENT: Dry mucus membranes NECK: supple, no carotid bruit noted HEART: RRR, Systolic blowing murmur noted best at left sternal border LUNGS: CTA b/l ABDOMEN: Soft, nontender EXTREMITIES: no peripheral edema or calf tenderness Moderate Sedation - Procedure Monitoring Vital Signs: Procedure Monitoring Vital Signs Temperature 97.7 F 08/31/18 11:05 Pulse Rate 67 08/31/18 11:05 Respiratory Rate 14 08/31/18 11:05 Blood Pressure 110/63 08/31/18 11:05 O2 Sat by Pulse Oximetry (%) 98 08/31/18 11:05 ED Treatment Course - LABORATORY CBC & Chemistry Diagram: 08/31/18 14:12 08/31/18 14:12 Medical Decision Making - Medical Decision Making 08/31/18 13:18 82 yo male presents with complaint of lightheadedness and near syncope earlier today. He states that he is feeling much better now but that he needs further evaluation and care as "something must be not okay" CBC, CMP, Coags, Type and Screen, EKG, Cardiac Profile , CXR pending 08/31/18 14:50 CBC unremarkable with H/H stable from most recent discharge. Orthostatic vital signs unremarkable. CMP, Cardiac profile pending CXR pending official read 08/31/18 14:55 EKG unchanged from previous EKGs from prior admissions 08/31/18 15:58 case discussed with hospitalist to consider for Tele Obs *DC/Admit/Observation/Transfer Diagnosis at time of Disposition: Lightheaded - Discharge Dispostion Condition at time of disposition: Stable Decision to Admit order: Yes - Referrals Referrals: Akilah Mays [Primary Care Provider] - - Patient Instructions - Post Discharge Activity
--- NOTE | 2018-08-31 14:19 | PDOC ---
Attending Attestation - Resident Resident Name: Price Dalton - ED Attending Attestation I have performed the following: I have examined & evaluated the patient, The case was reviewed & discussed with the resident, I agree w/resident's findings & plan, Exceptions are as noted - HPI HPI: 08/31/18 14:22 The patient is a 82 year old male, accompanied by , with a significant PMH of CHF, CAD s/p CABG, PPM, DM, HTN, and BPH, who presents to the emergency department with lightheadedness beginning earlier today. The patient states he experienced the episode of lightheadedness after standing up from using the restroom. The patient states he had to grab onto the door in the restroom to prevent himself from falling. He reports the lightheadness has improved since this morning but he persistently feeks lightheaded. He denies any injuries or trauma, denies any falls. The patient denies any chest pain, palpitations, nausea, diaphoresis or shortness of breath at that time. The patient denies headache. Denies fever, chills, nausea, vomit, diarrhea and constipation. Denies dysuria, frequency, urgency and hematuria. Allergies: NKA - Physicial Exam PE: 08/31/18 14:25 agree with resident exam - Medical Decision Making 08/31/18 14:27 82yo M hx CHF, CAD s/p CABG, DM, HTN, and BPH presents to the ED with lightheadness since this morning. Vitals wnl. Exam unremarkable. EKG paced. DDx includes but not limited to anemia vs electrolyte abdnormality vs ischemia vs arrhythmia. Plan -labs -CXR -orthostatic vital signs -reassess 08/31/18 16:00 Orthostatics negative Labs wnl Pt persistently lightheaded but improved C/o intermittent palpitations Plan to admit to tele obs for cardiac monitoring Case discussed with Dr. Escobar, pt accepted for admission Case discussed in detail with admitting physician including history, physical exam and ancillary studies. Admitting physician has assumed care for the patient, will follow all pending diagnostics and will complete the evaluation and treatment. <Carley Browne - Last Filed: 08/31/18 16:24> Heart Score/ECG Review #1 08/31/18 14:26 Twelve-lead EKG was performed and reviewed by me. Ventricular paced rhythm, rate 65. <Carley Browne - Last Filed: 08/31/18 16:24> Attestations - Attestations 08/31/18 14:31 Documentation prepared by Addison Ibarra, acting as medical anthropology director for Carley Browne MD. <Addison Ibarra - Last Filed: 08/31/18 14:31>
[2018-08-31 14:44] LABS: BASO % 0.2 % (0-2.0); EOS % 1.1 % (0-4.5); HEMATOCRIT 26.5 % (35.4-49); HEMOGLOBIN 8.5 GM/dL (11.7-16.9); LYMPH % 12.1 % (8-40); MCH 26.2 pg (25.7-33.7); MCHC 32.2 g/dl (32.0-35.9); MEAN CELL VOLUME 81.5 fl (80-96); MEAN PLT VOLUME 9.6 fl (7.5-11.1); MONO % 7.3 % (3.8-10.2); NEUT % 79.3 % (42.8-82.8); PLATELET COUNT 259 K/MM3 (134-434); RBC 3.25 M/mm3 (4.00-5.60); RDW 19.9 % (11.9-15.9); WHITE BLOOD COUNT 7.3 K/mm3 (4.0-10.0)
[2018-08-31 14:57] LABS: INR 1.39 (0.83-1.09); PROTHROMBIN TIME (PATIENT) 16.5 SEC (9.7-13.0)
[2018-08-31 14:58] LABS: ALBUMIN 3.4 g/dl (3.4-5.0); ALK PHOS 121 U/L (45-117); ANION GAP 4 MMOL/L (8-16); BILIRUBIN,TOTAL 0.4 mg/dL (0.2-1); BLOOD UREA NITROGEN 17 mg/dL (7-18); CALCIUM 9.4 mg/dL (8.5-10.1); CHLORIDE 103 mmol/L (98-107); CO2 29 mmol/L (21-32); CREATININE 1.3 mg/dL (0.55-1.3); GLUCOSE,RANDOM 235 mg/dL (74-106); SGOT/AST 22 U/L (15-37); SGPT/ALT 25 U/L (13-61); SODIUM 136 mmol/L (136-145); TOT PROT 8.2 g/dl (6.4-8.2)
[2018-08-31 15:00] LABS: ACTIVATED PTT 29.4 SECONDS (25.2-36.5)
[2018-08-31] MEDS ORDERED: SODIUM CHLORIDE 0.9% 500 ML INFUS.BAG IV ONE (15:08)
--- NOTE | 2018-08-31 17:09 | HP ---
CHIEF COMPLAINT: PCP: HISTORY OF PRESENT ILLNESS: ER course was notable for: (1) (2) (3) Recent Travel: PAST MEDICAL HISTORY: PAST SURGICAL HISTORY: Social History: Smoking: Alcohol: Drugs: Family History: Allergies No Known Drug Allergies Allergy (Verified 05/18/18 18:41) HOME MEDICATIONS: Home Medications Medication Instructions Recorded Lisinopril [Prinivil -] 40 mg PO DAILY 08/23/17 Furosemide [Lasix -] 40 mg PO DAILY #30 tablet 03/04/18 Sitagliptin Phosphate [Januvia] 100 mg PO DAILY #60 tablet 05/24/18 Amlodipine Besylate [Norvasc -] 10 mg PO DAILY 08/31/18 Apixaban [Eliquis] 5 mg PO DAILY 08/31/18 Ascorbic Acid [Vitamin C] 500 mg PO DAILY 08/31/18 Aspirin 81 mg PO DAILY 08/31/18 Carvedilol [Coreg -] 3.125 mg PO DAILY 08/31/18 Ferrous Sulfate 325 mg PO DAILY 08/31/18 Iron 65 mg PO DAILY 08/31/18 Tamsulosin HCl [Flomax] 0.4 mg PO DAILY 08/31/18 REVIEW OF SYSTEMS CONSTITUTIONAL: Absent: fever, chills, diaphoresis, generalized weakness, malaise, loss of appetite, weight change HEENT: Absent: rhinorrhea, nasal congestion, throat pain, throat swelling, difficulty swallowing, mouth swelling, ear pain, eye pain, visual changes CARDIOVASCULAR: Absent: chest pain, syncope, palpitations, irregular heart rate, lightheadedness , peripheral edema RESPIRATORY: Absent: cough, shortness of breath, dyspnea with exertion, orthopnea, wheezing, stridor, hemoptysis GASTROINTESTINAL: Absent: abdominal pain, abdominal distension, nausea, vomiting, diarrhea, constipation, melena, hematochezia GENITOURINARY: Absent: dysuria, frequency, urgency, hesitancy, hematuria, flank pain, genital pain MUSCULOSKELETAL: Absent: myalgia, arthralgia, joint swelling, back pain, neck pain SKIN: Absent: rash, itching, pallor HEMATOLOGIC/IMMUNOLOGIC: Absent: easy bleeding, easy bruising, lymphadenopathy, frequent infections ENDOCRINE: Absent: unexplained weight gain, unexplained weight loss, heat intolerance, cold intolerance NEUROLOGIC: Absent: headache, focal weakness or paresthesias, dizziness, unsteady gait, seizure, mental status changes, bladder or bowel incontinence PSYCHIATRIC: Absent: anxiety, depression, suicidal or homicidal ideation, hallucinations. PHYSICAL EXAMINATION Vital Signs - 24 hr 08/31/18 11:05 Temperature 97.7 F Pulse Rate 67 Respiratory 14 Rate Blood Pressure 110/63 O2 Sat by Pulse 98 Oximetry (%) GENERAL: Awake, alert, and fully oriented, in no acute distress. HEAD: Normal with no signs of trauma. EYES: Pupils equal, round and reactive to light, extraocular movements intact, sclera anicteric, conjunctiva clear. No lid lag. EARS, NOSE, THROAT: Ears normal, nares patent, oropharynx clear without exudates. Moist mucous membranes. NECK: Normal range of motion, supple without lymphadenopathy, JVD, or masses. LUNGS: Breath sounds equal, clear to auscultation bilaterally. No wheezes, and no crackles. No accessory muscle use. HEART: Regular rate and rhythm, normal S1 and S2 without murmur, rub or gallop. ABDOMEN: Soft, nontender, not distended, normoactive bowel sounds, no guarding, no rebound, no masses. No hepatomegaly or splenomegaly. MUSCULOSKELETAL: Normal range of motion at all joints. No bony deformities or tenderness. No CVA tenderness. UPPER EXTREMITIES: 2+ pulses, warm, well-perfused. No cyanosis. No clubbing. No peripheral edema. LOWER EXTREMITIES: 2+ pulses, warm, well-perfused. No calf tenderness. No peripheral edema. NEUROLOGICAL: Cranial nerves II-XII intact. Normal speech. Normal gait. PSYCHIATRIC: Cooperative. Good eye contact. Appropriate mood and affect. SKIN: Warm, dry, normal turgor, no rashes or lesions noted, normal capillary refill. Laboratory Results 08/31/18 08/31/18 08/31/18 14:12 14:12 14:12 WBC 7.3 RBC 3.25 L Hgb 8.5 L Hct 26.5 L MCV 81.5 MCH 26.2 D MCHC 32.2 RDW 19.9 H Plt Count 259 D MPV 9.6 Absolute Neuts (auto) 5.8 Neutrophils % 79.3 Lymphocytes % 12.1 D Monocytes % 7.3 Eosinophils % 1.1 Basophils % 0.2 Nucleated RBC % 0 PT with INR 16.50 H INR 1.39 H PTT (Actin FS) 29.4 Sodium 136 Potassium 4.0 Chloride 103 Carbon Dioxide 29 Anion Gap 4 L BUN 17 Creatinine 1.3 Creat Clearance w eGFR 52.72 Random Glucose 235 H Calcium 9.4 Total Bilirubin 0.4 AST 22 ALT 25 Alkaline Phosphatase 121 H Troponin I 0.05 Total Protein 8.2 Albumin 3.4 Blood Type Antibody Screen 08/31/18 14:12 WBC RBC Hgb Hct MCV MCH MCHC RDW Plt Count MPV Absolute Neuts (auto) Neutrophils % Lymphocytes % Monocytes % Eosinophils % Basophils % Nucleated RBC % PT with INR INR PTT (Actin FS) Sodium Potassium Chloride Carbon Dioxide Anion Gap BUN Creatinine Creat Clearance w eGFR Random Glucose Calcium Total Bilirubin AST ALT Alkaline Phosphatase Troponin I Total Protein Albumin Blood Type B POSITIVE Antibody Screen Negative ASSESSMENT/PLAN: Presyncopal event NIDDM HTN BPH CAD CHF --Orthostatic VS ordered for now --If positive can bolus as needed for hydration and hold Flomax in interim --Will need to interrogate pacemaker --Continue home dose medications: Norvasc 10mg qDaily ASA 81mg qDaily Januvia 100mg qDaily Lisinopril 40mg qDaily Lasix 40mg qDaily PO Coreg 3.125mg BID PO --holding Eliquis due to recent anemia admission 2 to likely GI bleed small bowel in nature --ISS for glucose control --BGM ACHS FEN: Fluids: Bolus as needed pending orthostatic VS Electrolyte abnormalities: WNL today Nutrition: Diabetic sodium controlled PPX: DVT - Already on Eliquis 5mg BID GI - Not indicated Dispo: Telemetry monitoring and interrogation Case discussed with Dr. Nate Kennedy, DO - IM PGY-2
--- NOTE | 2018-08-31 17:33 | PN ---
Teaching Attending Note Name of Resident: Doc Kennedy ATTENDING PHYSICIAN STATEMENT I saw and evaluated the patient. I reviewed the resident's note and discussed the case with the resident. I agree with the resident's findings and plan as documented. SUBJECTIVE:82yo M with PMH CHF, CAD s/p CABG, PPM, DM, HTN and BPH presented the lightheadedness that started this AM. occurred after using the restroom. did not loose consciousness, did not fall or hit his head. did not soil himself. does not recall last time his PPM was interrogated. denies CP, SOB, fever, chills, N/V/C/D as per ER staff pt was also having palpitations and was weak and unable to walk OBJECTIVE: Last Vital Signs Temp Pulse Resp BP Pulse Ox 97.7 F 67 14 110/63 98 08/31/18 11:05 08/31/18 11:05 08/31/18 11:05 08/31/18 11:05 08/31/18 11:05 General NAD HEENT dry oral mucosa CV S1 S2 RRR + murmur no rub/gallop No carotid bruit Lungs CTA B/l no wheezing/rales/rhonchi Abdomen soft NT/ND ASSESSMENT AND PLAN: 82yo M with PMH CHF, CAD s/p CABG, PAF, PPM, DM, HTN and BPH presented the lightheadedness that started this AM. 1. Near Syncope- likely orthostatic however with significant heart hx will need to r/o arrythmia. check orthostatics. PPM interrogation. cardiac monitoring. trend cardiac enzymes 2. CHF- appears slightly dry. luz maria hold AM dose of lasix. cont coreg/asa/statin 3. PAF- rate control with coreg. was on eliquis which was held in april due to GI bleed. was supposed ot be held until capsule study could be done to r/o GI bleed. unclear if pt followed for procedure. will hold here until can verify. 4. CAD s/p PPM- asa 5. DM- hold oral agents. BGM and ISS 6. HTN- controlled. cont home medictions 7. BPH- hold flomax as this can potentiate dizziness 8. DVT ppx-EAM 9. spoke with present at bedside. if no recurrent episodes and all testing negative anticipate discharge in next 24H
[2018-08-31] MEDS ORDERED: APIXABAN 5 MG TABLET PO SCH (22:00)
[2018-09-01] MEDS ORDERED: CARVEDILOL 3.125 MG TABLET (FP) ONE ×2 (01:21→11:20)
[2018-09-01] MEDS: CARVEDILOL 3.125 MG TABLET (FP) PO SCH ×2 (01:25→10:52)
[2018-09-01] MEDS ORDERED: sitaGLIPtin PHOSPHATE 100 MG TABLET (FP) PO SCH (07:00)
[2018-09-01] MEDS ORDERED: FUROSEMIDE 40 MG TABLET (FP) PO SCH (10:00)
[2018-09-01] MEDS ORDERED: APIXABAN 5 MG TABLET PO SCH (10:00)
[2018-09-01] MEDS ORDERED: LISINOPRIL 20 MG TABLET (FP) PO SCH (10:00)
[2018-09-01] MEDS ORDERED: ASPIRIN 81 MG CHEWABLE TABLETS PO SCH (10:00)
[2018-09-01] MEDS ORDERED: amLODIPine BESYLATE 10 MG TABLET (FP) PO SCH (10:00)
[2018-09-01] MEDS ORDERED: CARVEDILOL 3.125 MG TABLET (FP) PO SCH (10:00)
[2018-09-01] MEDS ORDERED: ASPIRIN 81 MG CHEWABLE TABLETS ONE (11:19)
--- NOTE | 2018-09-01 13:48 | DS ---
Physical Exam: SUBJECTIVE: Patient seen and examined. asymptomatic. denies CP, SOB, fever, chills, palpitations, N/V/C/D OBJECTIVE: Vital Signs Period Temp Pulse Resp BP Sys/Gauthier Pulse Ox Last 24 Hr 60-70 16-19 96-106/48-56 96-100 PHYSICAL EXAM GENERAL: The patient is awake, alert, and fully oriented, in no acute distress. HEAD: Normal with no signs of trauma. EYES: PERRL, extraocular movements intact, sclera anicteric, conjunctiva clear. ENT: Ears normal, nares patent, oropharynx clear without exudates, moist mucous membranes. NECK: Trachea midline, full range of motion, supple. LUNGS: Breath sounds equal, clear to auscultation bilaterally, no wheezes, no crackles, no accessory muscle use. HEART: Regular rate and rhythm, S1, S2 + murmur, no rub or gallop. ABDOMEN: Soft, nontender, nondistended, normoactive bowel sounds, no guarding, no rebound, no hepatosplenomegaly, no masses. EXTREMITIES: 2+ pulses, warm, well-perfused, no edema. NEUROLOGICAL: Cranial nerves II through XII grossly intact. Normal speech, gait not observed. PSYCH: Normal mood, normal affect. SKIN: Warm, dry, normal turgor, no rashes or lesions noted. LABS Laboratory Results - last 24 hr 08/31/18 08/31/18 08/31/18 14:12 14:12 14:12 WBC 7.3 RBC 3.25 L Hgb 8.5 L Hct 26.5 L MCV 81.5 MCH 26.2 D MCHC 32.2 RDW 19.9 H Plt Count 259 D MPV 9.6 Absolute Neuts (auto) 5.8 Neutrophils % 79.3 Lymphocytes % 12.1 D Monocytes % 7.3 Eosinophils % 1.1 Basophils % 0.2 Nucleated RBC % 0 PT with INR 16.50 H INR 1.39 H PTT (Actin FS) 29.4 Sodium 136 Potassium 4.0 Chloride 103 Carbon Dioxide 29 Anion Gap 4 L BUN 17 Creatinine 1.3 Creat Clearance w eGFR 52.72 Random Glucose 235 H Calcium 9.4 Total Bilirubin 0.4 AST 22 ALT 25 Alkaline Phosphatase 121 H CK-MB (CK-2) Troponin I 0.05 Total Protein 8.2 Albumin 3.4 Blood Type Antibody Screen 08/31/18 08/31/18 14:12 20:00 WBC RBC Hgb Hct MCV MCH MCHC RDW Plt Count MPV Absolute Neuts (auto) Neutrophils % Lymphocytes % Monocytes % Eosinophils % Basophils % Nucleated RBC % PT with INR INR PTT (Actin FS) Sodium Potassium Chloride Carbon Dioxide Anion Gap BUN Creatinine Creat Clearance w eGFR Random Glucose Calcium Total Bilirubin AST ALT Alkaline Phosphatase CK-MB (CK-2) 1.7 Troponin I 0.05 Total Protein Albumin Blood Type B POSITIVE Antibody Screen Negative HOSPITAL COURSE: Date of Admission:08/31/18 Date of Discharge: 09/01/18 admitting diagnosis: Dizzyness Pre hospital course 82yo M with PMH CHF, CAD s/p CABG, PPM, DM, HTN and BPH presented the lightheadedness that started this AM. occurred after using the restroom. did not loose consciousness, did not fall or hit his head. did not soil himself. does not recall last time his PPM was interrogated. denies CP, SOB, fever, chills, N/V/C/D as per ER staff pt was also having palpitations and was weak and unable to walk Subsequent hospital course monitored on tele with no events recorded. cardiac enzymes negx2. appears since patient last hospitalization medications were stopped (norvasc/asa/eliquis). verified with pharmacy that patient was still picking up these prescriptions and using them. concern that pt is over prescribed medication and may not require multiple BP agents as he was controlled with all medications being held. since Hgb has been stable will resume eliquis and asa at this time time. should follow up with GI for further testing like recommended on last hospital stay. will place on lower dose of lisiopril for cardio protective benefits and cont low dose coreg. spoke with chemehuevi andorran speaker to patient and stressed importance of only taking medications on medication list being provided on discharge. also need to f/u wtih PMD on monday and see GI specialist. Minutes to complete discharge: 40 Discharge Summary Reason For Visit: LIGHTHEADEDNESS Current Active Problems Lightheaded (Acute) Condition: Stable - Instructions Diet, Activity, Other Instructions: You were observed in the hospital because you were dizzy. This is liekly because your medications are too strong Your medications have been changed. PLEASE ONLY TAKE WHAT IS LISTED BELOW You are also taking aspirin and eliquis (blood thinner), You were seen in the past and recommended to stop these medications until you had further GI workup. Since you have been taking them with no bleeding you can continue them but you should see a GI specialist to ensure you are not bleeding. Information on a GI specialist has been provided. See your primary care doctor on Monday, you should have your blood pressure checked to ensure it is stable Return to the hospital if your symptoms worsen or if you develop bleeding THese medications have been stopped: Lasix 40mg Lisinopril 40mg norvasc 10mg Please take these medications coreg 3.125mg twice a day lisinopril 2.5mg daily aspirin 81mg daily eliquis 5mg twice a day Januvia 100mg daily iron 325mg daily Flomax 0.4mg daily Referrals: Elijah Tapia DO [Staff Physician] - Akilah Mays [Primary Care Provider] - Disposition: HOME - Home Medications Comprehensive Discharge Medication List: Ambulatory Orders Sitagliptin Phosphate [Januvia] 100 mg PO DAILY #60 tablet 05/24/18 Apixaban [Eliquis] 5 mg PO BID 08/31/18 Ascorbic Acid [Vitamin C] 500 mg PO DAILY 08/31/18 Aspirin 81 mg PO DAILY 08/31/18 Carvedilol [Coreg -] 3.125 mg PO BID 08/31/18 Ferrous Sulfate 325 mg PO DAILY 08/31/18 Tamsulosin HCl [Flomax -] 0.4 mg PO DAILY 08/31/18 Lisinopril 2.5 mg PO DAILY #30 tablet 09/01/18 This patient is new to me today: No Emergency Visit: Yes ED Registration Date: 08/31/18 Care time: The patient presented to the Emergency Department on the above date and was hospitalized for further evaluation of their emergent condition. Critical Care patient: No - Discharge Referral Referred to [facility] Med [facility] No
[2018-09-01 13:51] VITALS: BP 104/57; PULSE 72
--- NOTE | 2018-09-02 11:56 | EKG ---
Test Reason : Blood Pressure : / mmHG Vent. Rate : 065 BPM Atrial Rate : 073 BPM P-R Int : 000 ms QRS Dur : 208 ms QT Int : 476 ms P-R-T Axes : 000 -65 108 degrees QTc Int : 495 ms Ventricular-paced rhythm ABNORMAL ECG WHEN COMPARED WITH ECG OF 31-AUG-2018 11:49, VENT. RATE HAS DECREASED BY 10 BPM Confirmed by DAGO LASSITER MD ([id number]) on 09/02/2018 11:56:00 AM Referred By: Confirmed By:DAGO LASSITER MD
--- NOTE | 2018-09-03 10:56 | EKG ---
Test Reason : Blood Pressure : / mmHG Vent. Rate : 075 BPM Atrial Rate : 072 BPM P-R Int : 000 ms QRS Dur : 164 ms QT Int : 454 ms P-R-T Axes : 000 -65 107 degrees QTc Int : 506 ms Ventricular-paced rhythm ABNORMAL ECG WHEN COMPARED WITH ECG OF 18-MAY-2018 20:29, VENT. RATE HAS DECREASED BY 2 BPM Confirmed by DUC ARZOLA MD ([id number]) on 09/03/2018 10:55:49 AM Referred By: Confirmed By:DUC ARZOLA MD
== END 2018-09-01 13:51 | disposition home or self-care (01) ==
LOC: JER 11:02 → JERBED 15:19
PROVIDERS: ADMIT Internal Medicine; ATTEND Internal Medicine
PROC: 3E0337Z Introduction of Electrolytic and Water Balance Substance into Peripheral Vein, Percutaneous Approach (ICD-10-PCS; principal; 2018-08-31)
DX: R42 Dizziness and giddiness (principal); I11.0 Hypertensive heart disease with heart failure; I50.9 Heart failure, unspecified; E11.9 Type 2 diabetes mellitus without complications; N40.0 Benign prostatic hyperplasia without lower urinary tract symptoms; I48.0 Paroxysmal atrial fibrillation; Z95.0 Presence of cardiac pacemaker; Z95.1 Presence of aortocoronary bypass graft; Z79.82 Long term (current) use of aspirin
CPT/HCPCS: 36415; 71045-TC-FY; 80053; 82553; 84484; 85025; 85610; 85730; 86850; 86900; 86901; 93005; 93010; 99284-25; G0378